=== PATIENT | male | born 1950 | race Caucasian/White ===

== ENCOUNTER → 2017-05-26 | Outpatient (REF) | payer OTHER, MEDICAID ==
[~2017-05-26] MED LIST: /ESCI10TA; ACTO15TA; ALBU17IN INH; AMLO10TA; AMLO10TA PO; AMOX875T2 PO; ASPI325T; CARV25TA PO; CLON0.1D3; COLA100C5 PO; COZA100T; CRES20TA PO; FLAG500T; GABA600T PO; GEMF600T; GEMF600T PO; GLIP2.5T6; GLUC1000; GLUCOPH500 PO; HYDR25TA6; HYDR25TA8; HYDR25TAB PO; LASI20TA PO; LISI-538 PO; LISI40TA; LORATADINE; METF500T13 PO; METO200T3; NEUR300C; NEUR600T; NITROGLYCERINE; PERCOCET PO; POTASSIUM; TRAM50TA2; TRAM50TA2 PO; ZANT150T
[2017-05-26 16:33] LABS: BASO % 0.8 % (0.0-1.0); EOS # 0.1 K/mm3 (0.0-0.50); EOS % 1.1 % (0.0-3.0); LARGE UNSTAINED CELL # 0.1 K/mm3 (0.0-0.4); LYMPH % 15.4 % (24.0-44.0); MEAN CORPUSCULAR HEMOGLOBIN 32.5 pg (27.0-33.0); MEAN CORPUSCULAR HGB CONC 33.2 g/dl (32.0-36.5); MONO # 1.3 K/mm3 (0.0-0.8); NEUTROPHILS # 3.5 K/mm3 (1.8-7.7); NEUTROPHILS % 59.6 % (36.0-66.0); PLATELET COUNT, AUTOMATED 229 k/mm3 (150-450); RED CELL DISTRIBUTION WIDTH 14.4 % (11.5-14.5); WHITE BLOOD COUNT 5.9 K/mm3 (4.0-10.0)
[2017-05-26 17:33] LABS: ALBUMIN 4.1 GM/DL (3.2-5.2); ALBUMIN/GLOBULIN RATIO 1.11 (1.00-1.93); ALKALINE PHOSPHATASE 62 U/L (45-117); ALT/SGPT 23 U/L (12-78); ANION GAP 6 MEQ/L (8-16); AST/SGOT 14 U/L (15-37); BILIRUBIN,TOTAL 0.6 MG/DL (0.2-1.0); BLOOD UREA NITROGEN 18 MG/DL (7-18); CALCIUM LEVEL 8.9 MG/DL (8.8-10.2); CARBON DIOXIDE LEVEL 31 MEQ/L (21-32); CHLORIDE LEVEL 104 MEQ/L (98-107); CHOLESTEROL LEVEL 132 MG/DL (<200); GLOMERULAR FILTRATION RATE > 60.0 (>49); GLUCOSE, FASTING 153 MG/DL (80-110); POTASSIUM SERUM 4.3 MEQ/L (3.5-5.1); SODIUM LEVEL 141 MEQ/L (136-145); TOTAL PROTEIN 7.8 GM/DL (6.4-8.2); TRIGLYCERIDES LEVEL 168 MG/DL (<150)
== END ==
LOC: M SFHCCLAY 10:35
PROVIDERS: ATTEND Family Medicine
DX: I10 Essential (primary) hypertension (principal); E11.9 Type 2 diabetes mellitus without complications; E78.2 Mixed hyperlipidemia
CPT/HCPCS: 80053; 80061; 83036; 85025; G0463

== ENCOUNTER → 2018-01-25 | Outpatient (REF) | payer OTHER, MEDICAID ==
[2018-01-26 12:24] LABS: ALBUMIN 4.1 GM/DL (3.2-5.2); ALBUMIN/GLOBULIN RATIO 1.17 (1.00-1.93); ALKALINE PHOSPHATASE 64 U/L (45-117); ALT/SGPT 19 U/L (12-78); ANION GAP 7 MEQ/L (8-16); AST/SGOT 15 U/L (7-37); BILIRUBIN,TOTAL 0.4 MG/DL (0.2-1.0); BLOOD UREA NITROGEN 21 MG/DL (7-18); CALCIUM LEVEL 9.1 MG/DL (8.8-10.2); CARBON DIOXIDE LEVEL 29 MEQ/L (21-32); CHLORIDE LEVEL 103 MEQ/L (98-107); CHOLESTEROL LEVEL 126 MG/DL (<200); CHOLESTEROL RISK RATIO 3.937 (<5); GLOMERULAR FILTRATION RATE > 60.0 (>49); GLUCOSE, FASTING 112 MG/DL (70-100); HDL CHOLESTEROL 32 MG/DL (>40); LDL CHOLESTEROL 62.8 MG/DL (<100); NON-HDL-C 94 MG/DL; POTASSIUM SERUM 3.8 MEQ/L (3.5-5.1); SODIUM LEVEL 139 MEQ/L (136-145); TOTAL PROTEIN 7.6 GM/DL (6.4-8.2); TRIGLYCERIDES LEVEL 156 MG/DL (<150)
[2018-01-26 13:42] LABS: ESTIMATED AVERAGE GLUCOSE 120 MG/DL (60-110); HEMOGLOBIN A1c 5.8 %
== END ==
LOC: M SFHCCLAY 14:42
DX: E78.2 Mixed hyperlipidemia (principal); E11.40 Type 2 diabetes mellitus with diabetic neuropathy, unspecified
CPT/HCPCS: 80053

== ENCOUNTER → 2018-06-26 | Outpatient (REF) | payer OTHER, MEDICAID ==
[2018-06-26 17:24] LABS: ALBUMIN 4.1 GM/DL (3.2-5.2); ALBUMIN/GLOBULIN RATIO 1.05 (1.00-1.93); ALKALINE PHOSPHATASE 68 U/L (45-117); ALT/SGPT 25 U/L (12-78); ANION GAP 8 MEQ/L (8-16); AST/SGOT 17 U/L (7-37); BILIRUBIN,TOTAL 0.7 MG/DL (0.2-1.0); BLOOD UREA NITROGEN 17 MG/DL (7-18); CALCIUM LEVEL 8.6 MG/DL (8.8-10.2); CARBON DIOXIDE LEVEL 29 MEQ/L (21-32); CHLORIDE LEVEL 102 MEQ/L (98-107); CREATININE FOR GFR 0.92 MG/DL (0.70-1.30); GLOMERULAR FILTRATION RATE > 60.0 (>49); GLUCOSE, FASTING 105 MG/DL (70-100); SODIUM LEVEL 139 MEQ/L (136-145)
[2018-06-26 17:34] LABS: ESTIMATED AVERAGE GLUCOSE 131 MG/DL (60-110); HEMOGLOBIN A1c 6.2 %
[2018-06-26 17:41] LABS: CREATININE, URINE 23.4 MG/DL; MALB URINE SIEMENS 55.1 MG/L; MAU/CREAT RATIO 235.5 MCG/MG (0.0-30.0)
== END ==
LOC: M SFHCCLAY 10:49
DX: E11.40 Type 2 diabetes mellitus with diabetic neuropathy, unspecified (principal)
CPT/HCPCS: 80053

== ENCOUNTER → 2019-02-08 | Outpatient (REF) | payer MEDICARE, MEDICAID ==
[~2019-02-08] MED LIST changes: -/ESCI10TA; -CRES20TA PO; +CRES20TA2 PO; -GABA600T PO; +GABA600T4 PO; -GEMF600T PO; +GEMF600T5 PO; +HYDR-2541 PO; -HYDR25TAB PO; -LASI20TA PO; +LASI20TA3 PO; +LEXA1TAB
[2019-02-08 11:44] LABS: ALBUMIN 3.8 GM/DL (3.2-5.2); ALT/SGPT 23 U/L (12-78); BILIRUBIN,TOTAL 0.4 MG/DL (0.2-1.0); BLOOD UREA NITROGEN 32 MG/DL (7-18); CARBON DIOXIDE LEVEL 28 MEQ/L (21-32); CHLORIDE LEVEL 104 MEQ/L (98-107); CHOLESTEROL LEVEL 131 MG/DL (<200); CHOLESTEROL RISK RATIO 3.742 (<5); CREATININE FOR GFR 0.97 MG/DL (0.70-1.30); GLOMERULAR FILTRATION RATE > 60.0 (>42); GLUCOSE, FASTING 117 MG/DL (70-100); HDL CHOLESTEROL 35 MG/DL (>40); LDL CHOLESTEROL 75 MG/DL (<100); NON-HDL-C 96 MG/DL; POTASSIUM SERUM 4.3 MEQ/L (3.5-5.1); SODIUM LEVEL 139 MEQ/L (136-145); TOTAL PROTEIN 7.7 GM/DL (6.4-8.2); TRIGLYCERIDES LEVEL 105 MG/DL (<150)
[2019-02-08 12:39] LABS: HEMOGLOBIN A1c 6.3 %
== END ==
LOC: M SFHCCLAY 08:13
PROVIDERS: ATTEND Family Medicine
DX: E11.40 Type 2 diabetes mellitus with diabetic neuropathy, unspecified (principal); E78.2 Mixed hyperlipidemia

== ENCOUNTER → 2019-02-08 | Outpatient (CLI) | payer MEDICARE, MEDICAID ==
--- NOTE | 2019-02-08 09:23 | REP ---
CERVICAL SPINE, EIGHT VIEWS: HISTORY: Neck pain. The cervical spine is visualized from C1 to the C5-6 level in the lateral radiographs. There is no acute fracture. The C2-3 through C5-6 intervertebral discs are decreased in height consistent with disc degeneration. Osteophytes are present on C2-6. There is narrowing of the C3-6 neural foramina secondary to uncinate process hypertrophy. There are 3 mm of anterior subluxation of C2 on 3 and C3 on 4 unchanged with flexion and extension. IMPRESSION: Degenerative change as described above.
== END ==
LOC: M CLY 08:30
PROVIDERS: ATTEND Family Medicine
DX: M50.31 Other cervical disc degeneration, high cervical region (principal); M50.321 Other cervical disc degeneration at C4-C5 level; M50.322 Other cervical disc degeneration at C5-C6 level; M25.78 Osteophyte, vertebrae; E11.40 Type 2 diabetes mellitus with diabetic neuropathy, unspecified
CPT/HCPCS: 72050; 80053; 80061; 83036; G0463

== ENCOUNTER → 2019-06-03 | Outpatient (REF) | payer MEDICARE, MEDICAID ==
[~2019-06-03] MED LIST changes: +ASPI81TA85 PO; +BACT800T5 PO; +HYDR25TAB PO; +PREG50CA PO; +VENTAER INH
[2019-06-03 11:44] LABS: BASO % 0.3 % (0.0-1.0); EOS # 0.1 10^3/uL (0.0-0.5); EOS % 1.1 % (0.0-3.0); HEMATOCRIT 35.6 % (42.0-52.0); HEMOGLOBIN 11.8 g/dl (13.5-17.5); LYMPH # 1.1 10^3/uL (1.5-5.0); LYMPH % 17.4 % (24.0-44.0); MEAN CORPUSCULAR HGB CONC 33.1 g/dl (32.0-36.5); MEAN CORPUSCULAR VOLUME 93.4 fl (80.0-96.0); MONO % 30.1 % (0.0-5.0); NEUTROPHILS # 3.1 10^3/uL (1.5-8.5); NEUTROPHILS % 46.7 % (36.0-66.0); PLATELET COUNT, AUTOMATED 208 10^3/uL (150-450); RED BLOOD COUNT 3.81 10^6/uL (4.30-6.10); WHITE BLOOD COUNT 6.6 10^3/uL (4.0-10.0)
[2019-06-03 11:54] LABS: BLOOD UREA NITROGEN 28 MG/DL (7-18); CREATININE FOR GFR 1.06 MG/DL (0.70-1.30); GLUCOSE, FASTING 121 MG/DL (70-100)
[2019-06-03 11:55] LABS: ALBUMIN 3.7 GM/DL (3.2-5.2); ALT/SGPT 14 U/L (12-78); BILIRUBIN,TOTAL 0.3 MG/DL (0.2-1.0); CALCIUM LEVEL 9.7 MG/DL (8.8-10.2); CARBON DIOXIDE LEVEL 30 MEQ/L (21-32); CHLORIDE LEVEL 101 MEQ/L (98-107); GLOMERULAR FILTRATION RATE > 60.0 (>42); POTASSIUM SERUM 4.7 MEQ/L (3.5-5.1); SODIUM LEVEL 139 MEQ/L (136-145); TOTAL PROTEIN 7.8 GM/DL (6.4-8.2)
== END ==
LOC: M SFHCCLAY 08:55
PROVIDERS: ATTEND Family Medicine
DX: E11.40 Type 2 diabetes mellitus with diabetic neuropathy, unspecified (principal)
CPT/HCPCS: 80053; 85025; G0463

== ENCOUNTER 2019-06-12 05:57 | Day surgery (SDC) | payer MEDICARE ==
[~2019-06-12] VITALS: Ht 182.9 cm; Wt 105.9 kg
[~2019-06-12 05:57] MED LIST changes: -BACT800T5 PO
[2019-06-12] MEDS ORDERED: ceFAZolin SOD 2 GM in IV 1 EA IV ONE (06:00)
[2019-06-12] MEDS ORDERED: LIDOCAINE 1% MDV 20ML VIAL SQ PRN (06:00)
[2019-06-12] MEDS ORDERED: LR 1,000 ML IV ONE (06:00)
[2019-06-12] MEDS ORDERED: LIDOCAINE 1% MDV 20ML VIAL As Ordered ONE (06:54)
[2019-06-12] MEDS ORDERED: BUPIVACAINE HCL 0.5% 30 ML VIAL As Ordered ONE (06:54)
[2019-06-12] MEDS ORDERED: PROPOFOL 200 MG/20 ML VIAL As Ordered ONE ×2 (06:59→07:54)
[2019-06-12] MEDS ORDERED: LIDOCAINE 2% INJ 100 MG/5 ML SDV (FOR ANES.) As Ordered ONE (06:59)
[2019-06-12] MEDS ORDERED: ONDANSETRON 4MG/2ML VIAL (J2405) As Ordered ONE (06:59)
[2019-06-12] MEDS ORDERED: dexameTHASONE 4 MG/ML 1ML VIAL (J1100) As Ordered ONE (07:00)
[2019-06-12] MEDS ORDERED: KETOROLAC 60 MG/2 ML VIAL (J1885) As Ordered ONE (07:00)
[2019-06-12] MEDS ORDERED: fentaNYL 100 MCG/2 ML INJECTION (J3010) As Ordered ONE (07:04)
[2019-06-12] MEDS ORDERED: MIDAZOLAM INJ 2 MG/2 ML VIAL (J2250) As Ordered ONE (07:04)
[2019-06-12] MEDS ORDERED: BACT800T5 PO (08:14)
[2019-06-12 08:35] VITALS: BP 125/67
[2019-06-12] MEDS ORDERED: LR 1,000 ML IV SCH (09:00)
[2019-06-12] MEDS ORDERED: fentaNYL 100 MCG/2 ML INJECTION (J3010) IV PRN (09:00)
[2019-06-12] MEDS ORDERED: ONDANSETRON 4MG/2ML VIAL (J2405) IV PRN (09:00)
[2019-06-12] MEDS ORDERED: oxyCODONE 5MG TAB PO PRN (09:00)
[2019-06-12] MEDS ORDERED: METOCLOPRAMIDE INJ 10MG/2ML VIAL (J2765) IV PRN (09:00)
--- NOTE | 2019-06-12 09:55 | RO ---
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 PROCEDURE: Left 5th metatarsal head excision. SURGEON: Beni Figueroa DPM INSIDE TECHNICAL SALES REPRESENTATIVE: None ANESTHESIA: Monitored anesthesia care with preoperative injection of 10 mL of 1:1 mixture of 1% lidocaine plain and 0.5% Marcaine plain. ESTIMATED BLOOD LOSS: Minimal. MATERIALS: 3-0 nylon. INJECTABLES: None. SPECIMENS: Left 5th metatarsal head. COMPLICATIONS: None. Tolu Yusuf is a 68-year-old male who presents to [facility] with infection to his left foot. 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 He presents today for surgical excision of metatarsal head. The patient's side and site were identified and marked in the preoperative holding area. Consent was reviewed and obtained. All risks, complications, and alternatives to the procedure were explained to the patient in detail. All questions were answered. DESCRIPTION OF PROCEDURE: The patient was brought to the operating room and placed on the operating table in supine position. Monitored anesthesia care was delivered by the anesthesia team. A preoperative injection of 10 mL of 1:1 mixture of 1% lidocaine plain and 0.5% Marcaine plain were injected to the left foot. The left foot was prepped and draped in normal sterile fashion. A tourniquet was applied to the ankle, inflated at 250 mmHg. A dorsal incision was drawn over the 5th metatarsal head and carried through with a #15 blade. Dissection was carried down until the metatarsal was identified. Attached soft tissue and scar tissue were released using tenotomy scissors and #15 blade, and the metatarsal head was excised using a sagittal saw. This was sent for pathology. Remaining nonfriable tissue was debrided and cleaned in the plantar ulceration that was then irrigated with normal saline, and the wound was closed using 3-0 nylon. Sterile dressings were applied. The tourniquet was deflated. The patient was brought to postanesthesia care unit (PACU) with vital signs stable and neurovascular status intact. He will be partial weightbearing to his left foot. He will followup in office in 2 days.
== END 2019-06-12 09:07 | disposition home or self-care (01) ==
LOC: M SDC 05:57
PROVIDERS: ATTEND Podiatrist Foot & Ankle Surgery
DX: M86.172 Other acute osteomyelitis, left ankle and foot (principal); M79.672 Pain in left foot; E78.2 Mixed hyperlipidemia; I10 Essential (primary) hypertension; E11.40 Type 2 diabetes mellitus with diabetic neuropathy, unspecified; I25.10 Atherosclerotic heart disease of native coronary artery without angina pectoris; Z95.1 Presence of aortocoronary bypass graft; R26.9 Unspecified abnormalities of gait and mobility; Z79.84 Long term (current) use of oral hypoglycemic drugs; Z79.82 Long term (current) use of aspirin; Z79.899 Other long term (current) drug therapy; Z87.891 Personal history of nicotine dependence; I25.2 Old myocardial infarction; M54.5 Low back pain; M54.2 Cervicalgia; Z79.51 Long term (current) use of inhaled steroids
CPT/HCPCS: 28113; 88304; J0690; J1100; J1885; J2250; J2405; J3010

== ENCOUNTER → 2019-08-13 | Outpatient (REF) | payer MEDICARE, MEDICAID ==
[~2019-08-13] MED LIST changes: +BACT800T5 PO
[2019-08-13 16:54] LABS: ALBUMIN 4.2 GM/DL (3.2-5.2); ALT/SGPT 16 U/L (12-78); BILIRUBIN,TOTAL 0.6 MG/DL (0.2-1.0); BLOOD UREA NITROGEN 31 MG/DL (7-18); CALCIUM LEVEL 9.8 MG/DL (8.8-10.2); CARBON DIOXIDE LEVEL 29 MEQ/L (21-32); CHLORIDE LEVEL 103 MEQ/L (98-107); CREATININE FOR GFR 1.26 MG/DL (0.70-1.30); GLOMERULAR FILTRATION RATE > 60.0 (>42); GLUCOSE, FASTING 104 MG/DL (70-100); POTASSIUM SERUM 4.3 MEQ/L (3.5-5.1); SODIUM LEVEL 139 MEQ/L (136-145); TOTAL PROTEIN 9.1 GM/DL (6.4-8.2)
[2019-08-13 18:29] LABS: HEMOGLOBIN A1c 6.5 %
== END ==
LOC: M SFHCCLAY 09:56
PROVIDERS: ATTEND Family Medicine
DX: E11.40 Type 2 diabetes mellitus with diabetic neuropathy, unspecified (principal); Z23 Encounter for immunization
CPT/HCPCS: 80053; 83036; 90682; 90732; G0008; G0009; G0463

== ENCOUNTER → 2020-02-26 | Outpatient (CLI) | payer MEDICARE ==
[~2020-02-26] MED LIST changes: -ASPI81TA85 PO; +ASPI81TA86 PO; +HYDR-3490 PO; -HYDR25TAB PO; -LISI-538 PO; +LISI20TA33 PO
== END ==
LOC: M PT 13:48
PROVIDERS: ATTEND Family Medicine
DX: M54.5 Low back pain (principal); Z89.442 Acquired absence of left ankle; E11.40 Type 2 diabetes mellitus with diabetic neuropathy, unspecified; R26.9 Unspecified abnormalities of gait and mobility

== ENCOUNTER → 2020-03-09 | Outpatient (REF) | payer MEDICARE, MEDICAID ==
[~2020-03-09] MED LIST changes: +ASPI81TA85 PO; -ASPI81TA86 PO; -HYDR-3490 PO; +HYDR25TAB PO; +LISI-538 PO; -LISI20TA33 PO
[2020-03-09 16:32] LABS: ALBUMIN 3.7 GM/DL (3.2-5.2); ALT/SGPT 17 U/L (12-78); BILIRUBIN,TOTAL 0.5 MG/DL (0.2-1.0); BLOOD UREA NITROGEN 36 MG/DL (7-18); CALCIUM LEVEL 9.3 MG/DL (8.8-10.2); CARBON DIOXIDE LEVEL 27 MEQ/L (21-32); CHLORIDE LEVEL 103 MEQ/L (98-107); CHOLESTEROL LEVEL 110 MG/DL (<200); CHOLESTEROL RISK RATIO 3.793 (<5); CREATININE FOR GFR 1.25 MG/DL (0.70-1.30); GLOMERULAR FILTRATION RATE > 60.0 (>42); GLUCOSE, FASTING 123 MG/DL (70-100); HDL CHOLESTEROL 29 MG/DL (>40); LDL CHOLESTEROL 58 MG/DL (<100); NON-HDL-C 81 MG/DL; POTASSIUM SERUM 4.2 MEQ/L (3.5-5.1); SODIUM LEVEL 138 MEQ/L (136-145); TRIGLYCERIDES LEVEL 116 MG/DL (<150)
[2020-03-09 16:44] LABS: HEMOGLOBIN A1c 6.9 %
[2020-03-09 16:45] LABS: BASO % 0.2 % (0.0-1.0); EOS # 0.1 10^3/uL (0.0-0.5); EOS % 0.7 % (0.0-3.0); HEMATOCRIT 40.2 % (42.0-52.0); HEMOGLOBIN 13.1 g/dl (13.5-17.5); LYMPH # 1.6 10^3/uL (1.5-5.0); LYMPH % 16.8 % (24.0-44.0); MEAN CORPUSCULAR HEMOGLOBIN 30.8 pg (27.0-33.0); MEAN CORPUSCULAR HGB CONC 32.6 g/dl (32.0-36.5); MEAN CORPUSCULAR VOLUME 94.4 fl (80.0-96.0); MONO % 31.3 % (0.0-5.0); NEUTROPHILS # 4.6 10^3/uL (1.5-8.5); NEUTROPHILS % 47.9 % (36.0-66.0); PLATELET COUNT, AUTOMATED 296 10^3/uL (150-450); RED BLOOD COUNT 4.26 10^6/uL (4.30-6.10); WHITE BLOOD COUNT 9.5 10^3/uL (4.0-10.0)
[2020-03-09 19:32] LABS: ERYTHROCYTE SEDIMENTATION RATE 54 mm/hr (0-20)
== END ==
LOC: M SFHCCLAY 09:58
PROVIDERS: ATTEND Family Medicine
DX: E11.40 Type 2 diabetes mellitus with diabetic neuropathy, unspecified (principal); I10 Essential (primary) hypertension; E78.2 Mixed hyperlipidemia; R51 Headache; M54.2 Cervicalgia
CPT/HCPCS: 80053; 80061; 83036; 85025; 85652; 86140; G0463

== ENCOUNTER → 2020-10-02 | Outpatient (REF) | payer MEDICARE, MEDICAID ==
[~2020-10-02] MED LIST changes: -ASPI81TA85 PO; +ASPI81TA86 PO
[2020-10-02 16:56] LABS: HEMOGLOBIN A1c 5.9 %
[2020-10-02 16:57] LABS: ALBUMIN 4.3 GM/DL (3.2-5.2); ALT/SGPT 21 U/L (12-78); BILIRUBIN,TOTAL 0.5 MG/DL (0.2-1.0); BLOOD UREA NITROGEN 26 MG/DL (7-18); CALCIUM LEVEL 10.1 MG/DL (8.8-10.2); CARBON DIOXIDE LEVEL 33 MEQ/L (21-32); CHLORIDE LEVEL 104 MEQ/L (98-107); CREATININE FOR GFR 0.92 MG/DL (0.70-1.30); GLOMERULAR FILTRATION RATE > 60.0 (>42); GLUCOSE, FASTING 101 MG/DL (70-100); POTASSIUM SERUM 4.3 MEQ/L (3.5-5.1); SODIUM LEVEL 140 MEQ/L (136-145); TOTAL PROTEIN 8.4 GM/DL (6.4-8.2)
== END ==
LOC: M SFHCCLAY 13:22
PROVIDERS: ATTEND Family Medicine
DX: E11.40 Type 2 diabetes mellitus with diabetic neuropathy, unspecified (principal); Z23 Encounter for immunization
CPT/HCPCS: 80053; 83036; 90682; G0008; G0463

== ENCOUNTER → 2020-11-26 | Outpatient (REF) | payer MEDICARE, MEDICAID ==
[~2020-11-26] MED LIST changes: +HYDR-3490 PO; -HYDR25TAB PO; -LISI-538 PO; +LISI20TA33 PO
[2020-11-26 16:22] LABS: BASO % 0.2 % (0.0-1.0); EOS % 0.3 % (0.0-3.0); HEMATOCRIT 32.7 % (42.0-52.0); HEMOGLOBIN 10.5 g/dl (13.5-17.5); LYMPH # 1.1 10^3/uL (1.5-5.0); LYMPH % 12.7 % (24.0-44.0); MEAN CORPUSCULAR HEMOGLOBIN 31.2 pg (27.0-33.0); MEAN CORPUSCULAR HGB CONC 32.1 g/dl (32.0-36.5); MONO % 30.9 % (2.0-8.0); NEUTROPHILS # 4.6 10^3/uL (1.5-8.5); PLATELET COUNT, AUTOMATED 239 10^3/uL (150-450); RED BLOOD COUNT 3.37 10^6/uL (4.30-6.10)
[2020-11-26 16:35] LABS: ALT/SGPT 23 U/L (12-78); BILIRUBIN,TOTAL 0.2 MG/DL (0.2-1.0); BLOOD UREA NITROGEN 26 MG/DL (7-18); CALCIUM LEVEL 9.3 MG/DL (8.8-10.2); CARBON DIOXIDE LEVEL 28 MEQ/L (21-32); CHLORIDE LEVEL 106 MEQ/L (98-107); CREATININE FOR GFR 0.81 MG/DL (0.70-1.30); GLOMERULAR FILTRATION RATE > 60.0 (>42); GLUCOSE, FASTING 135 MG/DL (70-100); POTASSIUM SERUM 4.3 MEQ/L (3.5-5.1); SODIUM LEVEL 141 MEQ/L (136-145); TOTAL PROTEIN 6.9 GM/DL (6.4-8.2)
[2020-11-26 17:13] LABS: WHITE BLOOD COUNT 8.8 10^3/uL (4.0-10.0)
[2020-11-26 17:14] LABS: MONO # 2.7 10^3/uL (0.0-0.8)
== END ==
LOC: M SFHCCLAY 10:22
PROVIDERS: ATTEND Family Medicine
DX: R76.8 Other specified abnormal immunological findings in serum (principal); D72.829 Elevated white blood cell count, unspecified
CPT/HCPCS: 80053; 85025; G0463

== ENCOUNTER → 2020-12-15 | Outpatient (REF) | payer MEDICARE, MEDICAID ==
[2020-12-16 23:06] LABS: HBV HBV DNA not detected IU/mL (.); HEPATITIS B CORE ANTIBODY IGG Negative (Negative); HEPATITIS BE ANTIBODY Negative (Negative); HEPATITIS BE ANTIGEN Negative (Negative)
== END ==
LOC: M SFHCPLAZ 11:49
PROVIDERS: ATTEND Internal Medicine Infectious Disease
DX: R76.8 Other specified abnormal immunological findings in serum (principal)
CPT/HCPCS: 36415; 86704; 86706; 86707; 87350; 87517; G0463

== ENCOUNTER → 2021-07-16 | Outpatient (CLI) | payer MEDICARE, MEDICAID ==
--- NOTE | 2021-07-16 14:04 | REP ---
INDICATION: LT FOOT ULCER COMPARISON: None. TECHNIQUE: Real-time sonographic evaluation of the left lower extremity arteries with Doppler FINDINGS: All numeric values represent peak systolic velocities in cm/SEC The ankle brachial index is 0.9 RV SERVICE TECHNICIAN: 114.2 triphasic Profunda: 78.9 biphasic SFA proximal: 68.4 biphasic SFA mid: 85.9 biphasic SFA distal: 72.6 triphasic Popliteal: 79.3 triphasic Tibioperoneal trunk: 72.0 triphasic SCALLOP BINDER proximal: 123.5 biphasic SCALLOP BINDER distal: 88.7 biphasic Peroneal proximally: 66.0 biphasic Peroneal distally: 62.0 biphasic ALLISON proximal: 31.7 biphasic ALLISON distal: 18.7 biphasic A mild to moderate amount of plaque was identified. IMPRESSION: As above <Electronically signed by Jimmie Guzman > 07/16/21 1400
== END ==
LOC: M RAD 10:53
PROVIDERS: ATTEND Physician Assistant
DX: E11.621 Type 2 diabetes mellitus with foot ulcer (principal); L97.428 Non-pressure chronic ulcer of left heel and midfoot with other specified severity

== ENCOUNTER → 2021-09-30 | Outpatient (REF) | payer MEDICARE, MEDICAID ==
[2021-09-30 12:27] LABS: HEMOGLOBIN A1c 5.7 %
== END ==
LOC: M LAB REF 11:36
PROVIDERS: ATTEND Surgery
DX: E11.621 Type 2 diabetes mellitus with foot ulcer (principal); L97.428 Non-pressure chronic ulcer of left heel and midfoot with other specified severity

== ENCOUNTER → 2022-03-09 | Outpatient (REF) | payer MEDICARE, MEDICAID ==
[~2022-03-09] MED LIST changes: +ASPI-161 PO; +DOXY-259 PO; +DOXY100T; +NALO12.5 PO
== END ==
LOC: M SFHCWOUN 15:35
PROVIDERS: ATTEND Surgery
DX: L97.512 Non-pressure chronic ulcer of other part of right foot with fat layer exposed (principal)

== ENCOUNTER → 2022-03-17 | Outpatient (CLI) | payer MEDICARE, MEDICAID ==
[~2022-03-17] MED LIST changes: -ASPI-161 PO; -DOXY-259 PO; -DOXY100T; -NALO12.5 PO
== END ==
LOC: M RAD 09:55
PROVIDERS: ATTEND Surgery
DX: I70.233 Atherosclerosis of native arteries of right leg with ulceration of ankle (principal); I77.1 Stricture of artery; L97.312 Non-pressure chronic ulcer of right ankle with fat layer exposed

== ENCOUNTER 2022-03-23 15:19 | Inpatient (IN) | payer MEDICARE, MEDICAID ==
[~2022-03-23] VITALS: Ht 182.9 cm; Wt 100.0 kg
[2022-03-23] MEDS ORDERED: DOXY100T (15:34)
[2022-03-23 17:12] LABS: BLOOD UREA NITROGEN 16 MG/DL (7-18); CALCIUM LEVEL 9.1 MG/DL (8.8-10.2); CARBON DIOXIDE LEVEL 27 MEQ/L (21-32); CHLORIDE LEVEL 102 MEQ/L (98-107); CREATININE FOR GFR 0.72 MG/DL (0.70-1.30); GLOMERULAR FILTRATION RATE > 60.0 (>42); GLUCOSE, FASTING 105 MG/DL (70-100); POTASSIUM SERUM 3.8 MEQ/L (3.5-5.1); SODIUM LEVEL 134 MEQ/L (136-145)
[2022-03-23 17:39] LABS: INR 1.23; PROTHROMBIN TIME 15.9 SECONDS (12.7-14.5)
[2022-03-23 18:27] LABS: HEMATOCRIT 26.5 % (42.0-52.0); MEAN CORPUSCULAR HEMOGLOBIN 27.1 pg (27.0-33.0); MEAN CORPUSCULAR HGB CONC 30.2 g/dl (32.0-36.5); MEAN CORPUSCULAR VOLUME 89.8 fl (80.0-96.0); PLATELET COUNT, AUTOMATED 280 10^3/uL (150-450); RED BLOOD COUNT 2.95 10^6/uL (4.30-6.10); WHITE BLOOD COUNT 11.4 10^3/uL (4.0-10.0)
[2022-03-23 18:52] LABS: ERYTHROCYTE SEDIMENTATION RATE 126 mm/hr (0-20)
[2022-03-23 19:14] LABS: LYMPHOCYTES 5 % (16-44); MONOCYTES 12 % (0-5); NEUTROPHILS 83 % (28-66)
[2022-03-23 19:16] LABS: HYPOCHROMASIA 1+; POIKILOCYTOSIS 1+
[2022-03-23 19:17] LABS: PLATELET ESTIMATE NORMAL (NORMAL)
[2022-03-23] MEDS ORDERED: VANCOMYCIN HCL 2,000 MG in IV FLUID PLACE HOLDER 1 EA IV ONE (19:25)
[2022-03-23] MEDS ORDERED: VANCOMYCIN HCL 1,000 MG, VIAL MATE ADAPTER 1 EACH in NS 250 ML IV ONE ×2 (20:00→21:00)
[2022-03-23 20:10] LABS: RSV AMPLIFICATION NEGATIVE (NEGATIVE)
[2022-03-23] MEDS ORDERED: GLUCOSE 4GM CHEW TABLET PO PRN (20:15)
[2022-03-23] MEDS ORDERED: GLUCAGON INJ 1MG VIAL SC PRN (20:15)
[2022-03-23] MEDS ORDERED: ACETAMINOPHEN TAB 650MG DOSE (2X325MG) PO PRN (20:15)
[2022-03-23] MEDS ORDERED: PERCOCET 5MG/325MG TAB PO PRN (20:15)
[2022-03-23] MEDS ORDERED: DEXTROSE 50% 50 ML SYRINGE IV PRN (20:15)
[2022-03-23 22:21] LABS: PERCENT SATURATION 12.9 % (19.7-50.0)
[2022-03-23 22:22] LABS: HEMOGLOBIN A1c 5.4 %
[2022-03-23 22:55] LABS: FOLATE 6.5 NG/ML (>5.4)
[2022-03-24] VITALS (9 sets, daily range): BP systolic 119–135; BP diastolic 60–82
[2022-03-24] MEDS ORDERED: DOXY-259 PO (00:10)
[2022-03-24] MEDS ORDERED: HOME MED LIST COMPLETE! XX SCH (00:10)
[2022-03-24] MEDS ORDERED: NALO12.5 PO (00:10)
[2022-03-24] MEDS ORDERED: ASPI-161 PO (00:10)
[2022-03-24] MEDS: VANCOMYCIN HCL 750 MG, VIAL MATE ADAPTER 1 EACH in D5W 250 ML IV SCH ×2 (00:49→08:17)
[2022-03-24] MEDS: VANCOMYCIN HCL 500 MG in D5W MINI-BAG PLUS 100 ML IV SCH ×2 (00:49→09:31)
[2022-03-24] MEDS: PIPERACILLIN/TAZOBACTAM SOD 3.375 GM in D5W MINI-BAG PLUS 50 ML IV SCH ×6 (00:49→23:11)
[2022-03-24] MEDS: INSULIN LISPRO (NovoLOG) PER UNIT SC SCH ×5 (01:47→21:00)
[2022-03-24 06:28] LABS: EOS % 0.1 % (0.0-3.0); HEMATOCRIT 22.4 % (42.0-52.0); LYMPH # 0.6 10^3/uL (1.5-5.0); LYMPH % 8.8 % (24.0-44.0); MEAN CORPUSCULAR HEMOGLOBIN 27.9 pg (27.0-33.0); MEAN CORPUSCULAR HGB CONC 30.8 g/dl (32.0-36.5); MEAN CORPUSCULAR VOLUME 90.7 fl (80.0-96.0); MONO % 27.8 % (2.0-8.0); NEUTROPHILS # 4.4 10^3/uL (1.5-8.5); NEUTROPHILS % 61.9 % (36.0-66.0); PLATELET COUNT, AUTOMATED 226 10^3/uL (150-450); RED BLOOD COUNT 2.47 10^6/uL (4.30-6.10); WHITE BLOOD COUNT 7.2 10^3/uL (4.0-10.0)
[2022-03-24 06:37] LABS: INR 1.42; PROTHROMBIN TIME 17.8 SECONDS (12.7-14.5)
[2022-03-24 06:38] LABS: PARTIAL THROMBOPLASTIN TIME 40.2 SECONDS (25.9-37.0)
[2022-03-24 06:57] LABS: ALBUMIN 1.9 GM/DL (3.2-5.2); ALT/SGPT 10 U/L (12-78); BILIRUBIN,TOTAL 0.6 MG/DL (0.2-1.0); BLOOD UREA NITROGEN 16 MG/DL (7-18); CALCIUM LEVEL 9.2 MG/DL (8.8-10.2); CARBON DIOXIDE LEVEL 28 MEQ/L (21-32); CHLORIDE LEVEL 103 MEQ/L (98-107); CREATININE FOR GFR 0.63 MG/DL (0.70-1.30); GLOMERULAR FILTRATION RATE > 60.0 (>42); GLUCOSE, FASTING 94 MG/DL (70-100); MAGNESIUM LEVEL 1.8 MG/DL (1.8-2.4); POTASSIUM SERUM 3.3 MEQ/L (3.5-5.1); SODIUM LEVEL 138 MEQ/L (136-145); TOTAL PROTEIN 7.3 GM/DL (6.4-8.2)
[2022-03-24 07:24] LABS: HEMOGLOBIN 6.9 g/dl (13.5-17.5)
[2022-03-24] MEDS ORDERED: POTASSIUM CHLORIDE 10MEQ SR TABLET PO ONE (07:30)
[2022-03-24] MEDS: PREGABALIN 50 MG CAP (LYRICA) PO SCH ×3 (08:10→21:10)
[2022-03-24] MEDS: LACTOBACILLUS ACIDOPHILUS CAP (BACID) PO SCH (08:10)
[2022-03-24] MEDS: PANTOPRAZOLE 40MG TAB (PROTONIX) PO SCH (08:10)
[2022-03-24] MEDS: CARVedilol 12.5 MG TAB PO SCH ×2 (08:11→21:11)
[2022-03-24] MEDS: ASPIRIN 81MG ENTERIC TABLET PO SCH (08:11)
[2022-03-24] MEDS: D5W/0.9% SODIUM CHLORIDE 1,000 ML IV SCH (08:14)
[2022-03-24] MEDS: ENOXAPARIN 40MG/0.4ML SYRINGE (J1650 PER 10MG) SC SCH (11:49)
[2022-03-24] MEDS ORDERED: HEPARIN SOD (PORCINE) 5000UNITS/ML 1ML VIAL/SYRINGE SC SCH (14:00)
[2022-03-24] MEDS ORDERED: LIDOCAINE 1% MDV 20ML VIAL As Ordered ONE (16:14)
[2022-03-24] MEDS ORDERED: BUPIVACAINE HCL 0.5% 30ML VIAL As Ordered ONE (16:14)
[2022-03-24] MEDS ORDERED: LIDOCAINE 2% INJ 100 MG/5 ML SYRINGE As Ordered ONE (16:18)
[2022-03-24] MEDS ORDERED: propofoL 500 MG/50 ML VIAL As Ordered ONE (16:18)
[2022-03-24] MEDS ORDERED: fentaNYL 100 MCG/2 ML INJECTION As Ordered ONE (16:19)
[2022-03-24] MEDS ORDERED: MIDAZOLAM INJ 2MG/2ML VIAL (J2250 PER 1MG) As Ordered ONE (16:19)
[2022-03-24] MEDS ORDERED: ONDANSETRON 4MG 2ML VIAL IV PRN (17:25)
[2022-03-24] MEDS ORDERED: fentaNYL 100 MCG/2 ML INJECTION IV PRN (17:25)
[2022-03-24] MEDS ORDERED: oxyCODONE 5MG TAB PO PRN (17:25)
[2022-03-24] MEDS ORDERED: LR 1,000 ML IV SCH (17:25)
[2022-03-24] MEDS: ROSUVASTATIN 10 MG TAB (CRESTOR) PO SCH (21:11)
[2022-03-25] VITALS (14 sets, daily range): BP systolic 101–159; BP diastolic 61–88
[2022-03-25] MEDS: D5W/0.9% SODIUM CHLORIDE 1,000 ML IV SCH ×2 (00:40→18:29)
[2022-03-25] MEDS: PIPERACILLIN/TAZOBACTAM SOD 3.375 GM in D5W MINI-BAG PLUS 50 ML IV SCH ×3 (04:03→20:41)
[2022-03-25] MEDS: SODIUM CHLORIDE 0.9% INJ 10 ML SYR IV SCH ×2 (06:00→18:00)
[2022-03-25 07:19] LABS: EOS % 0.2 % (0.0-3.0); HEMATOCRIT 21.4 % (42.0-52.0); LYMPH # 0.5 10^3/uL (1.5-5.0); LYMPH % 7.5 % (24.0-44.0); MEAN CORPUSCULAR HEMOGLOBIN 27.4 pg (27.0-33.0); MEAN CORPUSCULAR HGB CONC 30.4 g/dl (32.0-36.5); MEAN CORPUSCULAR VOLUME 90.3 fl (80.0-96.0); MONO % 25.9 % (2.0-8.0); NEUTROPHILS # 4.3 10^3/uL (1.5-8.5); NEUTROPHILS % 64.9 % (36.0-66.0); PLATELET COUNT, AUTOMATED 218 10^3/uL (150-450); RED BLOOD COUNT 2.37 10^6/uL (4.30-6.10); WHITE BLOOD COUNT 6.6 10^3/uL (4.0-10.0)
[2022-03-25] MEDS: INSULIN LISPRO (NovoLOG) PER UNIT SC SCH ×5 (07:30→20:41)
[2022-03-25 07:47] LABS: BLOOD UREA NITROGEN 15 MG/DL (7-18); CALCIUM LEVEL 8.6 MG/DL (8.8-10.2); CARBON DIOXIDE LEVEL 29 MEQ/L (21-32); CHLORIDE LEVEL 105 MEQ/L (98-107); CREATININE FOR GFR 0.63 MG/DL (0.70-1.30); GLOMERULAR FILTRATION RATE > 60.0 (>42); GLUCOSE, FASTING 111 MG/DL (70-100); POTASSIUM SERUM 3.8 MEQ/L (3.5-5.1); SODIUM LEVEL 137 MEQ/L (136-145)
[2022-03-25 08:12] LABS: HEMOGLOBIN 6.5 g/dl (13.5-17.5)
[2022-03-25 08:13] LABS: MONO # 1.7 10^3/uL (0.0-0.8)
[2022-03-25] MEDS ORDERED: LIDOCAINE 1% MDV 20ML VIAL As Ordered ONE (08:26)
[2022-03-25] MEDS: CARVedilol 12.5 MG TAB PO SCH ×2 (09:00→20:41)
[2022-03-25] MEDS: PREGABALIN 50 MG CAP (LYRICA) PO SCH ×3 (09:00→20:41)
[2022-03-25 09:22] LABS: MAGNESIUM LEVEL 1.9 MG/DL (1.8-2.4)
[2022-03-25] MEDS ORDERED: BISACODYL 10 MG SUPP PR ONE (09:30)
[2022-03-25] MEDS: LACTOBACILLUS ACIDOPHILUS CAP (BACID) PO SCH (09:58)
[2022-03-25] MEDS: ASPIRIN 81MG ENTERIC TABLET PO SCH (09:58)
[2022-03-25] MEDS: ENOXAPARIN 40MG/0.4ML SYRINGE (J1650 PER 10MG) SC SCH (09:58)
[2022-03-25] MEDS: PANTOPRAZOLE 40MG TAB (PROTONIX) PO SCH (09:58)
[2022-03-25] MEDS: VANCOMYCIN HCL 750 MG, VIAL MATE ADAPTER 1 EACH in D5W 250 ML IV SCH (16:26)
[2022-03-25 16:40] LABS: HEMATOCRIT 26.7 % (42.0-52.0); HEMOGLOBIN 8.3 g/dl (13.5-17.5)
[2022-03-25] MEDS: VANCOMYCIN HCL 500 MG in D5W MINI-BAG PLUS 100 ML IV SCH (17:37)
[2022-03-25] MEDS: ROSUVASTATIN 10 MG TAB (CRESTOR) PO SCH (20:41)
[2022-03-26] MEDS: VANCOMYCIN HCL 750 MG, VIAL MATE ADAPTER 1 EACH in D5W 250 ML IV SCH ×2 (00:34→12:56)
[2022-03-26] MEDS: VANCOMYCIN HCL 500 MG in D5W MINI-BAG PLUS 100 ML IV SCH ×2 (01:46→14:40)
[2022-03-26] MEDS: PIPERACILLIN/TAZOBACTAM SOD 3.375 GM in D5W MINI-BAG PLUS 50 ML IV SCH ×4 (04:01→20:57)
[2022-03-26 05:21] VITALS: BP 152/82
[2022-03-26] MEDS: SODIUM CHLORIDE 0.9% INJ 10 ML SYR IV SCH ×2 (05:25→18:16)
[2022-03-26 06:18] LABS: EOS % 0.2 % (0.0-3.0); HEMATOCRIT 27.4 % (42.0-52.0); HEMOGLOBIN 8.6 g/dl (13.5-17.5); LYMPH # 0.8 10^3/uL (1.5-5.0); LYMPH % 12.9 % (24.0-44.0); MEAN CORPUSCULAR HEMOGLOBIN 27.4 pg (27.0-33.0); MEAN CORPUSCULAR HGB CONC 31.4 g/dl (32.0-36.5); MEAN CORPUSCULAR VOLUME 87.3 fl (80.0-96.0); MONO % 27.1 % (2.0-8.0); NEUTROPHILS # 3.7 10^3/uL (1.5-8.5); NEUTROPHILS % 58.1 % (36.0-66.0); PLATELET COUNT, AUTOMATED 235 10^3/uL (150-450); RED BLOOD COUNT 3.14 10^6/uL (4.30-6.10); WHITE BLOOD COUNT 6.4 10^3/uL (4.0-10.0)
[2022-03-26 06:38] LABS: BLOOD UREA NITROGEN 16 MG/DL (7-18); C REACTIVE PROTEIN QUANTITATIV 8.08 MG/DL (0.00-0.30); CALCIUM LEVEL 8.7 MG/DL (8.8-10.2); CARBON DIOXIDE LEVEL 26 MEQ/L (21-32); CHLORIDE LEVEL 107 MEQ/L (98-107); CREATININE FOR GFR 0.72 MG/DL (0.70-1.30); GLOMERULAR FILTRATION RATE > 60.0 (>42); GLUCOSE, FASTING 103 MG/DL (70-100); POTASSIUM SERUM 3.5 MEQ/L (3.5-5.1); SODIUM LEVEL 139 MEQ/L (136-145)
[2022-03-26 06:56] LABS: MONO # 1.7 10^3/uL (0.0-0.8)
[2022-03-26 07:30] VITALS: BP 144/83
[2022-03-26] MEDS: INSULIN LISPRO (NovoLOG) PER UNIT SC SCH ×4 (07:39→20:50)
[2022-03-26] MEDS: ENOXAPARIN 40MG/0.4ML SYRINGE (J1650 PER 10MG) SC SCH (09:27)
[2022-03-26] MEDS: PREGABALIN 50 MG CAP (LYRICA) PO SCH ×3 (09:32→20:57)
[2022-03-26] MEDS: LACTOBACILLUS ACIDOPHILUS CAP (BACID) PO SCH (09:32)
[2022-03-26] MEDS: CARVedilol 12.5 MG TAB PO SCH ×2 (09:32→20:56)
[2022-03-26] MEDS: PANTOPRAZOLE 40MG TAB (PROTONIX) PO SCH (09:32)
[2022-03-26] MEDS: ASPIRIN 81MG ENTERIC TABLET PO SCH (09:33)
[2022-03-26] MEDS: D5W/0.9% SODIUM CHLORIDE 1,000 ML IV SCH (10:33)
[2022-03-26] MEDS ORDERED: diphenhydrAMINE 25MG CAP PO PRN (14:00)
[2022-03-26 14:47] VITALS: BP 137/77
[2022-03-26] MEDS: MOM 30ML SUSPENSION UDC PO PRN (18:30)
[2022-03-26] MEDS: ROSUVASTATIN 10 MG TAB (CRESTOR) PO SCH (20:56)
[2022-03-26 22:00] VITALS: BP 155/87
[2022-03-27] MEDS: VANCOMYCIN HCL 750 MG, VIAL MATE ADAPTER 1 EACH in D5W 250 ML IV SCH (00:13)
[2022-03-27] MEDS: VANCOMYCIN HCL 500 MG in D5W MINI-BAG PLUS 100 ML IV SCH (01:18)
[2022-03-27] MEDS: D5W/0.9% SODIUM CHLORIDE 1,000 ML IV SCH (02:10)
[2022-03-27] MEDS: PIPERACILLIN/TAZOBACTAM SOD 3.375 GM in D5W MINI-BAG PLUS 50 ML IV SCH ×2 (03:11→08:55)
[2022-03-27] MEDS: SODIUM CHLORIDE 0.9% INJ 10 ML SYR IV SCH ×2 (05:17→18:06)
[2022-03-27 05:20] VITALS: BP 152/85
[2022-03-27] MEDS: MOM 30ML SUSPENSION UDC PO PRN (06:18)
[2022-03-27 07:09] LABS: BASO % 0.2 % (0.0-1.0); EOS % 0.3 % (0.0-3.0); HEMATOCRIT 26.9 % (42.0-52.0); HEMOGLOBIN 8.1 g/dl (13.5-17.5); LYMPH # 0.7 10^3/uL (1.5-5.0); LYMPH % 11.9 % (24.0-44.0); MEAN CORPUSCULAR HEMOGLOBIN 27.3 pg (27.0-33.0); MEAN CORPUSCULAR HGB CONC 30.1 g/dl (32.0-36.5); MEAN CORPUSCULAR VOLUME 90.6 fl (80.0-96.0); MONO % 25.8 % (2.0-8.0); NEUTROPHILS # 3.7 10^3/uL (1.5-8.5); NEUTROPHILS % 59.6 % (36.0-66.0); PLATELET COUNT, AUTOMATED 215 10^3/uL (150-450); RED BLOOD COUNT 2.97 10^6/uL (4.30-6.10); WHITE BLOOD COUNT 6.2 10^3/uL (4.0-10.0)
[2022-03-27 07:37] LABS: BLOOD UREA NITROGEN 11 MG/DL (7-18); C REACTIVE PROTEIN QUANTITATIV 4.25 MG/DL (0.00-0.30); CALCIUM LEVEL 8.3 MG/DL (8.8-10.2); CARBON DIOXIDE LEVEL 30 MEQ/L (21-32); CHLORIDE LEVEL 109 MEQ/L (98-107); CREATININE FOR GFR 0.64 MG/DL (0.70-1.30); GLOMERULAR FILTRATION RATE > 60.0 (>42); GLUCOSE, FASTING 106 MG/DL (70-100); MAGNESIUM LEVEL 2.2 MG/DL (1.8-2.4); SODIUM LEVEL 143 MEQ/L (136-145)
[2022-03-27 07:57] LABS: MONO # 1.6 10^3/uL (0.0-0.8)
[2022-03-27] MEDS: INSULIN LISPRO (NovoLOG) PER UNIT SC SCH ×4 (08:25→21:00)
[2022-03-27] MEDS: LACTOBACILLUS ACIDOPHILUS CAP (BACID) PO SCH (08:50)
[2022-03-27] MEDS: ENOXAPARIN 40MG/0.4ML SYRINGE (J1650 PER 10MG) SC SCH (08:51)
[2022-03-27] MEDS: ASPIRIN 81MG ENTERIC TABLET PO SCH (08:54)
[2022-03-27] MEDS: PREGABALIN 50 MG CAP (LYRICA) PO SCH ×3 (08:54→21:30)
[2022-03-27] MEDS: PANTOPRAZOLE 40MG TAB (PROTONIX) PO SCH (08:54)
[2022-03-27] MEDS: CARVedilol 12.5 MG TAB PO SCH ×2 (08:55→21:30)
[2022-03-27] MEDS ORDERED: ALBUTEROL SULFATE 2.5 MG/0.5 ML INH NEB SOLN INH PRN (09:40)
[2022-03-27] MEDS: MOXIFLOXACIN 400 MG TAB PO SCH (10:58)
[2022-03-27] MEDS: SODIUM CHLORIDE 0.9% INJ 10 ML SYR IV PRN (11:02)
[2022-03-27 14:59] VITALS: BP 143/77
[2022-03-27 20:48] VITALS: BP 152/86
[2022-03-27] MEDS: ROSUVASTATIN 10 MG TAB (CRESTOR) PO SCH (21:30)
[2022-03-27] MEDS ORDERED: RAMELTEON 8 MG TAB (ROZEREM) PO PRN (22:20)
[2022-03-27] MEDS ORDERED: hydrOXYzine 50 MG TAB PO ONE (23:00)
[2022-03-28] MEDS: SODIUM CHLORIDE 0.9% INJ 10 ML SYR IV SCH ×2 (05:14→17:21)
[2022-03-28] MEDS: MOXIFLOXACIN 400 MG TAB PO SCH (05:14)
[2022-03-28] MEDS: SODIUM CHLORIDE 0.9% INJ 10 ML SYR IV PRN ×2 (05:15→06:24)
[2022-03-28 05:21] VITALS: BP 171/95
[2022-03-28 06:48] VITALS: BP 160/88
[2022-03-28 06:50] LABS: BASO % 0.1 % (0.0-1.0); EOS % 0.4 % (0.0-3.0); HEMATOCRIT 26.1 % (42.0-52.0); HEMOGLOBIN 7.9 g/dl (13.5-17.5); LYMPH # 0.8 10^3/uL (1.5-5.0); LYMPH % 11.3 % (24.0-44.0); MEAN CORPUSCULAR HEMOGLOBIN 27.5 pg (27.0-33.0); MEAN CORPUSCULAR HGB CONC 30.3 g/dl (32.0-36.5); MEAN CORPUSCULAR VOLUME 90.9 fl (80.0-96.0); NEUTROPHILS # 4.1 10^3/uL (1.5-8.5); PLATELET COUNT, AUTOMATED 218 10^3/uL (150-450); RED BLOOD COUNT 2.87 10^6/uL (4.30-6.10); WHITE BLOOD COUNT 7.3 10^3/uL (4.0-10.0)
[2022-03-28 07:10] LABS: BLOOD UREA NITROGEN 12 MG/DL (7-18); C REACTIVE PROTEIN QUANTITATIV 3.72 MG/DL (0.00-0.30); CALCIUM LEVEL 8.4 MG/DL (8.8-10.2); CARBON DIOXIDE LEVEL 28 MEQ/L (21-32); CHLORIDE LEVEL 110 MEQ/L (98-107); CREATININE FOR GFR 0.64 MG/DL (0.70-1.30); GLOMERULAR FILTRATION RATE > 60.0 (>42); GLUCOSE, FASTING 100 MG/DL (70-100); MAGNESIUM LEVEL 2.1 MG/DL (1.8-2.4); POTASSIUM SERUM 3.9 MEQ/L (3.5-5.1); SODIUM LEVEL 142 MEQ/L (136-145)
[2022-03-28 07:15] VITALS: BP 162/82
[2022-03-28] MEDS: INSULIN LISPRO (NovoLOG) PER UNIT SC SCH ×4 (07:30→21:00)
[2022-03-28 07:58] LABS: MONO # 2.1 10^3/uL (0.0-0.8)
[2022-03-28] MEDS: PANTOPRAZOLE 40MG TAB (PROTONIX) PO SCH (08:58)
[2022-03-28] MEDS: ASPIRIN 81MG ENTERIC TABLET PO SCH (09:01)
[2022-03-28] MEDS: PREGABALIN 50 MG CAP (LYRICA) PO SCH ×3 (09:01→21:09)
[2022-03-28] MEDS: CARVedilol 12.5 MG TAB PO SCH ×2 (09:01→21:10)
[2022-03-28] MEDS: LACTOBACILLUS ACIDOPHILUS CAP (BACID) PO SCH (09:02)
[2022-03-28] MEDS: ENOXAPARIN 40MG/0.4ML SYRINGE (J1650 PER 10MG) SC SCH (09:56)
[2022-03-28] MEDS: FUROSEMIDE 20 MG TAB PO SCH (10:33)
[2022-03-28 14:00] VITALS: BP 141/81
[2022-03-28] MEDS: ROSUVASTATIN 10 MG TAB (CRESTOR) PO SCH (21:09)
[2022-03-28 22:00] VITALS: BP 141/81
[2022-03-29] MEDS: SODIUM CHLORIDE 0.9% INJ 10 ML SYR IV SCH ×2 (05:34→17:00)
[2022-03-29] MEDS: SODIUM CHLORIDE 0.9% INJ 10 ML SYR IV PRN (05:35)
[2022-03-29 05:39] VITALS: BP 143/78
[2022-03-29 05:52] LABS: BASO % 0.1 % (0.0-1.0); EOS % 0.1 % (0.0-3.0); HEMATOCRIT 27.2 % (42.0-52.0); HEMOGLOBIN 8.4 g/dl (13.5-17.5); LYMPH % 14.1 % (24.0-44.0); MEAN CORPUSCULAR HEMOGLOBIN 27.9 pg (27.0-33.0); MEAN CORPUSCULAR HGB CONC 30.9 g/dl (32.0-36.5); MEAN CORPUSCULAR VOLUME 90.4 fl (80.0-96.0); MONO % 29.9 % (2.0-8.0); NEUTROPHILS # 3.8 10^3/uL (1.5-8.5); NEUTROPHILS % 53.1 % (36.0-66.0); PLATELET COUNT, AUTOMATED 217 10^3/uL (150-450); RED BLOOD COUNT 3.01 10^6/uL (4.30-6.10); WHITE BLOOD COUNT 7.2 10^3/uL (4.0-10.0)
[2022-03-29 06:15] LABS: BLOOD UREA NITROGEN 15 MG/DL (7-18); C REACTIVE PROTEIN QUANTITATIV 4.76 MG/DL (0.00-0.30); CALCIUM LEVEL 8.7 MG/DL (8.8-10.2); CARBON DIOXIDE LEVEL 29 MEQ/L (21-32); CHLORIDE LEVEL 108 MEQ/L (98-107); CREATININE FOR GFR 0.74 MG/DL (0.70-1.30); GLOMERULAR FILTRATION RATE > 60.0 (>42); GLUCOSE, FASTING 101 MG/DL (70-100); MAGNESIUM LEVEL 2.2 MG/DL (1.8-2.4); POTASSIUM SERUM 4.2 MEQ/L (3.5-5.1); SODIUM LEVEL 143 MEQ/L (136-145)
[2022-03-29] MEDS: MOXIFLOXACIN 400 MG TAB PO SCH (06:41)
[2022-03-29 07:17] LABS: MONO # 2.1 10^3/uL (0.0-0.8)
[2022-03-29] MEDS: INSULIN LISPRO (NovoLOG) PER UNIT SC SCH ×4 (07:30→21:00)
[2022-03-29] MEDS: ENOXAPARIN 40MG/0.4ML SYRINGE (J1650 PER 10MG) SC SCH (09:28)
[2022-03-29] MEDS: PREGABALIN 50 MG CAP (LYRICA) PO SCH ×3 (09:29→21:41)
[2022-03-29] MEDS: ASPIRIN 81MG ENTERIC TABLET PO SCH (09:29)
[2022-03-29] MEDS: LACTOBACILLUS ACIDOPHILUS CAP (BACID) PO SCH (09:30)
[2022-03-29] MEDS: PANTOPRAZOLE 40MG TAB (PROTONIX) PO SCH (09:30)
[2022-03-29] MEDS: FUROSEMIDE 20 MG TAB PO SCH (09:31)
[2022-03-29] MEDS: CARVedilol 12.5 MG TAB PO SCH ×2 (09:31→21:44)
[2022-03-29 13:47] VITALS: BP 141/75
[2022-03-29] MEDS: ROSUVASTATIN 10 MG TAB (CRESTOR) PO SCH (21:41)
[2022-03-29 22:15] VITALS: BP 150/77
[2022-03-30] MEDS: MOXIFLOXACIN 400 MG TAB PO SCH (06:10)
[2022-03-30] MEDS: SODIUM CHLORIDE 0.9% INJ 10 ML SYR IV SCH ×2 (06:10→17:23)
[2022-03-30 06:11] VITALS: BP 150/77
[2022-03-30 06:55] LABS: BASO % 0.1 % (0.0-1.0); EOS % 0.3 % (0.0-3.0); HEMOGLOBIN 8.7 g/dl (13.5-17.5); LYMPH # 1.1 10^3/uL (1.5-5.0); LYMPH % 15.5 % (24.0-44.0); MEAN CORPUSCULAR VOLUME 90.1 fl (80.0-96.0); NEUTROPHILS # 3.8 10^3/uL (1.5-8.5); NEUTROPHILS % 53.7 % (36.0-66.0); PLATELET COUNT, AUTOMATED 223 10^3/uL (150-450); RED BLOOD COUNT 3.22 10^6/uL (4.30-6.10)
[2022-03-30 07:14] LABS: BLOOD UREA NITROGEN 15 MG/DL (7-18); C REACTIVE PROTEIN QUANTITATIV 3.97 MG/DL (0.00-0.30); CALCIUM LEVEL 8.4 MG/DL (8.8-10.2); CARBON DIOXIDE LEVEL 28 MEQ/L (21-32); CHLORIDE LEVEL 110 MEQ/L (98-107); CREATININE FOR GFR 0.66 MG/DL (0.70-1.30); GLOMERULAR FILTRATION RATE > 60.0 (>42); GLUCOSE, FASTING 92 MG/DL (70-100); MAGNESIUM LEVEL 2.2 MG/DL (1.8-2.4); POTASSIUM SERUM 3.8 MEQ/L (3.5-5.1); SODIUM LEVEL 142 MEQ/L (136-145)
[2022-03-30 07:29] LABS: MONO # 1.9 10^3/uL (0.0-0.8)
[2022-03-30] MEDS: INSULIN LISPRO (NovoLOG) PER UNIT SC SCH ×4 (07:30→21:00)
[2022-03-30] MEDS: PREGABALIN 50 MG CAP (LYRICA) PO SCH ×3 (08:53→21:22)
[2022-03-30] MEDS: PANTOPRAZOLE 40MG TAB (PROTONIX) PO SCH (08:53)
[2022-03-30] MEDS: ASPIRIN 81MG ENTERIC TABLET PO SCH (08:55)
[2022-03-30] MEDS: FUROSEMIDE 20 MG TAB PO SCH (08:55)
[2022-03-30] MEDS: ENOXAPARIN 40MG/0.4ML SYRINGE (J1650 PER 10MG) SC SCH (08:56)
[2022-03-30] MEDS: CARVedilol 12.5 MG TAB PO SCH ×2 (08:56→21:23)
[2022-03-30] MEDS: LACTOBACILLUS ACIDOPHILUS CAP (BACID) PO SCH (08:57)
[2022-03-30 14:00] VITALS: BP 123/60
[2022-03-30] MEDS: ROSUVASTATIN 10 MG TAB (CRESTOR) PO SCH (21:22)
[2022-03-30 22:00] VITALS: BP 148/76
[2022-03-31 06:00] VITALS: BP 142/78
[2022-03-31] MEDS: MOXIFLOXACIN 400 MG TAB PO SCH (06:09)
[2022-03-31] MEDS: SODIUM CHLORIDE 0.9% INJ 10 ML SYR IV SCH ×2 (06:10→16:36)
[2022-03-31 06:31] LABS: BASO % 0.1 % (0.0-1.0); EOS % 0.1 % (0.0-3.0); HEMATOCRIT 27.9 % (42.0-52.0); HEMOGLOBIN 8.6 g/dl (13.5-17.5); LYMPH % 14.6 % (24.0-44.0); MEAN CORPUSCULAR HEMOGLOBIN 27.9 pg (27.0-33.0); MEAN CORPUSCULAR HGB CONC 30.8 g/dl (32.0-36.5); MEAN CORPUSCULAR VOLUME 90.6 fl (80.0-96.0); MONO % 28.9 % (2.0-8.0); NEUTROPHILS # 3.7 10^3/uL (1.5-8.5); NEUTROPHILS % 53.5 % (36.0-66.0); PLATELET COUNT, AUTOMATED 201 10^3/uL (150-450); RED BLOOD COUNT 3.08 10^6/uL (4.30-6.10); WHITE BLOOD COUNT 6.8 10^3/uL (4.0-10.0)
[2022-03-31 06:58] LABS: BLOOD UREA NITROGEN 20 MG/DL (7-18); C REACTIVE PROTEIN QUANTITATIV 2.99 MG/DL (0.00-0.30); CALCIUM LEVEL 8.3 MG/DL (8.8-10.2); CARBON DIOXIDE LEVEL 28 MEQ/L (21-32); CHLORIDE LEVEL 109 MEQ/L (98-107); CREATININE FOR GFR 0.61 MG/DL (0.70-1.30); GLOMERULAR FILTRATION RATE > 60.0 (>42); GLUCOSE, FASTING 97 MG/DL (70-100); MAGNESIUM LEVEL 2.2 MG/DL (1.8-2.4); SODIUM LEVEL 140 MEQ/L (136-145)
[2022-03-31] MEDS: INSULIN LISPRO (NovoLOG) PER UNIT SC SCH ×4 (07:02→21:00)
[2022-03-31] MEDS: PREGABALIN 50 MG CAP (LYRICA) PO SCH ×3 (08:05→21:08)
[2022-03-31] MEDS: LACTOBACILLUS ACIDOPHILUS CAP (BACID) PO SCH (08:05)
[2022-03-31] MEDS: ENOXAPARIN 40MG/0.4ML SYRINGE (J1650 PER 10MG) SC SCH (08:05)
[2022-03-31] MEDS: ASPIRIN 81MG ENTERIC TABLET PO SCH (08:05)
[2022-03-31] MEDS: PANTOPRAZOLE 40MG TAB (PROTONIX) PO SCH (08:05)
[2022-03-31] MEDS: CARVedilol 12.5 MG TAB PO SCH ×2 (08:06→21:10)
[2022-03-31] MEDS: FUROSEMIDE 20 MG TAB PO SCH (08:06)
[2022-03-31 09:00] VITALS: BP 140/78
[2022-03-31] MEDS: ROSUVASTATIN 10 MG TAB (CRESTOR) PO SCH (21:11)
[2022-04-01 06:00] VITALS: BP 143/79
[2022-04-01] MEDS: MOXIFLOXACIN 400 MG TAB PO SCH (06:20)
[2022-04-01] MEDS: SODIUM CHLORIDE 0.9% INJ 10 ML SYR IV SCH (06:20)
[2022-04-01 06:46] LABS: BASO % 0.2 % (0.0-1.0); EOS % 0.2 % (0.0-3.0); HEMATOCRIT 28.8 % (42.0-52.0); HEMOGLOBIN 8.7 g/dl (13.5-17.5); LYMPH # 1.1 10^3/uL (1.5-5.0); LYMPH % 16.5 % (24.0-44.0); MEAN CORPUSCULAR HEMOGLOBIN 27.9 pg (27.0-33.0); MEAN CORPUSCULAR HGB CONC 30.2 g/dl (32.0-36.5); MEAN CORPUSCULAR VOLUME 92.3 fl (80.0-96.0); MONO % 29.1 % (2.0-8.0); NEUTROPHILS # 3.3 10^3/uL (1.5-8.5); NEUTROPHILS % 51.8 % (36.0-66.0); PLATELET COUNT, AUTOMATED 214 10^3/uL (150-450); RED BLOOD COUNT 3.12 10^6/uL (4.30-6.10); WHITE BLOOD COUNT 6.4 10^3/uL (4.0-10.0)
[2022-04-01 07:30] LABS: MONO # 1.9 10^3/uL (0.0-0.8)
[2022-04-01] MEDS: INSULIN LISPRO (NovoLOG) PER UNIT SC SCH ×2 (07:30→12:10)
[2022-04-01 07:57] LABS: BLOOD UREA NITROGEN 22 MG/DL (7-18); CALCIUM LEVEL 8.5 MG/DL (8.8-10.2); CARBON DIOXIDE LEVEL 29 MEQ/L (21-32); CHLORIDE LEVEL 110 MEQ/L (98-107); CREATININE FOR GFR 0.62 MG/DL (0.70-1.30); GLOMERULAR FILTRATION RATE > 60.0 (>42); GLUCOSE, FASTING 84 MG/DL (70-100); MAGNESIUM LEVEL 2.3 MG/DL (1.8-2.4); SODIUM LEVEL 142 MEQ/L (136-145)
[2022-04-01] MEDS: PANTOPRAZOLE 40MG TAB (PROTONIX) PO SCH (08:49)
[2022-04-01] MEDS: ASPIRIN 81MG ENTERIC TABLET PO SCH (08:49)
[2022-04-01] MEDS: FUROSEMIDE 20 MG TAB PO SCH (08:49)
[2022-04-01] MEDS: LACTOBACILLUS ACIDOPHILUS CAP (BACID) PO SCH (08:49)
[2022-04-01] MEDS: PREGABALIN 50 MG CAP (LYRICA) PO SCH (08:49)
[2022-04-01 08:50] VITALS: BP 143/79
[2022-04-01] MEDS: CARVedilol 12.5 MG TAB PO SCH (08:50)
[2022-04-01] MEDS: ENOXAPARIN 40MG/0.4ML SYRINGE (J1650 PER 10MG) SC SCH (08:50)
[2022-04-01] MEDS ORDERED: MOXI400T11 PO (10:00)
== END 2022-04-01 14:07 | disposition home health service (06) | DRG 638 ==
LOC: M ED 15:19 → M ED INP 20:12 → M MS5PR 03-24 02:35
PROVIDERS: ADMIT Internal Medicine; ATTEND Family Medicine
PROC: 30233N1 Transfusion of Nonautologous Red Blood Cells into Peripheral Vein, Percutaneous Approach (ICD-10-PCS; principal; 2022-03-24 22:59)
PROC: 0H9MXZZ Drainage of Right Foot Skin, External Approach (ICD-10-PCS; 2022-03-25)
PROC: 02HV33Z Insertion of Infusion Device into Superior Vena Cava, Percutaneous Approach (ICD-10-PCS; 2022-03-25)
DX: E11.69 Type 2 diabetes mellitus with other specified complication (principal); L03.115 Cellulitis of right lower limb; I50.22 Chronic systolic (congestive) heart failure; A52.16 Charcot's arthropathy (tabetic); I11.0 Hypertensive heart disease with heart failure; D64.9 Anemia, unspecified; M79.89 Other specified soft tissue disorders; E78.5 Hyperlipidemia, unspecified; E11.42 Type 2 diabetes mellitus with diabetic polyneuropathy; E11.621 Type 2 diabetes mellitus with foot ulcer; L97.529 Non-pressure chronic ulcer of other part of left foot with unspecified severity; K59.00 Constipation, unspecified; L97.519 Non-pressure chronic ulcer of other part of right foot with unspecified severity; M65.171 Other infective (teno)synovitis, right ankle and foot; E87.6 Hypokalemia; J44.9 Chronic obstructive pulmonary disease, unspecified; D63.8 Anemia in other chronic diseases classified elsewhere; Z79.84 Long term (current) use of oral hypoglycemic drugs; Z98.49 Cataract extraction status, unspecified eye; Z79.82 Long term (current) use of aspirin; Z79.891 Long term (current) use of opiate analgesic; Z90.49 Acquired absence of other specified parts of digestive tract; Z79.899 Other long term (current) drug therapy

== ENCOUNTER → 2022-04-08 | Outpatient (REF) | payer MEDICARE, MEDICAID ==
[~2022-04-08] MED LIST changes: +ASPI-161 PO; +DOXY-259 PO; +DOXY100T; +MOXI400T11 PO; +NALO12.5 PO
[2022-04-08 18:08] LABS: HEMATOCRIT 27.1 % (42.0-52.0); HEMOGLOBIN 8.3 g/dl (13.5-17.5); MEAN CORPUSCULAR HEMOGLOBIN 28.1 pg (27.0-33.0); MEAN CORPUSCULAR HGB CONC 30.6 g/dl (32.0-36.5); MEAN CORPUSCULAR VOLUME 91.9 fl (80.0-96.0); PLATELET COUNT, AUTOMATED 255 10^3/uL (150-450); RED BLOOD COUNT 2.95 10^6/uL (4.30-6.10); WHITE BLOOD COUNT 7.6 10^3/uL (4.0-10.0)
[2022-04-08 18:39] LABS: ALBUMIN 2.7 GM/DL (3.2-5.2); ALT/SGPT 10 U/L (12-78); BILIRUBIN,TOTAL 0.4 MG/DL (0.2-1.0); BLOOD UREA NITROGEN 15 MG/DL (7-18); CALCIUM LEVEL 9.1 MG/DL (8.8-10.2); CARBON DIOXIDE LEVEL 32 MEQ/L (21-32); CHLORIDE LEVEL 103 MEQ/L (98-107); CHOLESTEROL LEVEL 145 MG/DL (<200); CHOLESTEROL RISK RATIO 2.788 (<5); CREATININE FOR GFR 0.73 MG/DL (0.70-1.30); GLOMERULAR FILTRATION RATE > 60.0 (>42); GLUCOSE, FASTING 102 MG/DL (70-100); HDL CHOLESTEROL 52 MG/DL (>40); LDL CHOLESTEROL 77 MG/DL (<100); NON-HDL-C 93 MG/DL; POTASSIUM SERUM 4.3 MEQ/L (3.5-5.1); SODIUM LEVEL 139 MEQ/L (136-145); TRIGLYCERIDES LEVEL 82 MG/DL (<150)
[2022-04-08 18:58] LABS: ANISOCYTOSIS 1+; EOSINOPHILS 1 % (0-3); LYMPHOCYTES 14 % (16-44); METAMYELOCYTES 1 % (0-0); MONOCYTES 21 % (0-5); MYELOCYTES 1 % (0-0); NEUTROPHILS 62 % (28-66); PLATELET ESTIMATE NORMAL (NORMAL)
[2022-04-08 18:59] LABS: HYPOCHROMASIA 1+
[2022-04-08 19:46] LABS: HEMOGLOBIN A1c 5.3 %
== END ==
LOC: M SFHCCLAY 14:21
PROVIDERS: ATTEND Nurse Practitioner Family
DX: E11.610 Type 2 diabetes mellitus with diabetic neuropathic arthropathy (principal); E11.40 Type 2 diabetes mellitus with diabetic neuropathy, unspecified; E78.2 Mixed hyperlipidemia

== ENCOUNTER → 2022-05-09 | Outpatient (REF) | payer MEDICARE, MEDICAID ==
[2022-05-09 17:32] LABS: HEMATOCRIT 33.8 % (42.0-52.0); HEMOGLOBIN 10.5 g/dl (13.5-17.5); MEAN CORPUSCULAR HEMOGLOBIN 28.8 pg (27.0-33.0); MEAN CORPUSCULAR HGB CONC 31.1 g/dl (32.0-36.5); MEAN CORPUSCULAR VOLUME 92.9 fl (80.0-96.0); PLATELET COUNT, AUTOMATED 206 10^3/uL (150-450); RED BLOOD COUNT 3.64 10^6/uL (4.30-6.10); WHITE BLOOD COUNT 7.2 10^3/uL (4.0-10.0)
[2022-05-09 18:51] LABS: PERCENT SATURATION 23.1 % (19.7-50.0)
== END ==
LOC: M SFHCCLAY 09:42
PROVIDERS: ATTEND Family Medicine
DX: D64.9 Anemia, unspecified (principal)

== ENCOUNTER → 2022-11-08 | Outpatient (REF) | payer MEDICARE, MEDICAID ==
[2022-11-08 17:13] LABS: ALBUMIN 3.8 G/DL (3.2-5.2); ALKALINE PHOSPHATASE 93 U/L (46-116); ALT/SGPT 18 U/L (7.0-40); AST/SGOT 21 U/L (<34); BILIRUBIN,TOTAL 0.7 MG/DL (0.3-1.2); BLOOD UREA NITROGEN 29 MG/DL (9-23); CALCIUM LEVEL 9.1 MG/DL (8.3-10.6); CARBON DIOXIDE LEVEL 33 MMOL/L (20-31); CHLORIDE LEVEL 104 MMOL/L (98-107); CHOLESTEROL LEVEL 148 MG/DL (<200); CHOLESTEROL RISK RATIO 4.02 (<5); CREATININE FOR GFR 0.93 MG/DL (0.70-1.30); GLOMERULAR FILTRATION RATE > 60.0 (>42); GLUCOSE, FASTING 82 MG/DL (74-106); HDL CHOLESTEROL 36.8 MG/DL (>40); LDL CHOLESTEROL 79.4 MG/DL (<100); NON-HDL-C 111 MG/DL; POTASSIUM SERUM 4.3 MMOL/L (3.5-5.1); SODIUM LEVEL 142 MMOL/L (136-145); TOTAL PROTEIN 7.4 G/DL (5.7-8.2); TRIGLYCERIDES LEVEL 159 MG/DL (<150)
[2022-11-08 17:14] LABS: BASO % 0.2 % (0.0-1.0); EOS # 0.1 10^3/uL (0.0-0.5); EOS % 0.8 % (0.0-3.0); HEMATOCRIT 38.6 % (42.0-52.0); HEMOGLOBIN 12.3 g/dl (13.5-17.5); LYMPH # 1.1 10^3/uL (1.5-5.0); LYMPH % 12.9 % (24.0-44.0); MEAN CORPUSCULAR HEMOGLOBIN 29.7 pg (27.0-33.0); MEAN CORPUSCULAR HGB CONC 31.9 g/dl (32.0-36.5); MEAN CORPUSCULAR VOLUME 93.2 fl (80.0-96.0); MONO % 38.7 % (2.0-8.0); NEUTROPHILS # 3.8 10^3/uL (1.5-8.5); NEUTROPHILS % 45.3 % (36.0-66.0); PLATELET COUNT, AUTOMATED 195 10^3/uL (150-450); RED BLOOD COUNT 4.14 10^6/uL (4.30-6.10); WHITE BLOOD COUNT 8.4 10^3/uL (4.0-10.0)
[2022-11-08 17:49] LABS: HEMOGLOBIN A1c 5.8 % (4.0-6.0)
[2022-11-08 18:09] LABS: MONO # 3.2 10^3/uL (0.0-0.8)
== END ==
LOC: M SFHCCLAY 13:32
PROVIDERS: ATTEND Family Medicine
DX: E11.40 Type 2 diabetes mellitus with diabetic neuropathy, unspecified (principal)

== ENCOUNTER → 2023-03-07 | Outpatient (REF) | payer MEDICARE, MEDICAID | LOC: M SFHCWOUN 16:10 | PROVIDERS: ATTEND Physician Assistant | DX: E11.621 Type 2 diabetes mellitus with foot ulcer (principal) ==

== ENCOUNTER 2023-04-07 06:12 | Observation (INO) | payer MEDICARE, MEDICAID ==
[2023-04-07] VITALS (7 sets, daily range): BP systolic 138–153; BP diastolic 71–82; TEMP 97.3–97.9; O2SAT 95–97
[~2023-04-07] VITALS: Ht 182.9 cm; Wt 95.3 kg
[~2023-04-07 06:12] MED LIST changes: +ceFAZolin SOD 2 GM in IV 1 EA IV ONE
[2023-04-07] MEDS ORDERED: LR 1,000 ML IV SCH ×2 (06:55→10:20)
[2023-04-07] MEDS ORDERED: BACITRACIN OINTMENT 30GM TUBE As Ordered ONE (07:14)
[2023-04-07] MEDS ORDERED: LIDOCAINE 2% W/EPINEPHRINE 20ML VIAL **PRES FREE As Ordered ONE (07:14)
[2023-04-07] MEDS ORDERED: POVIDONE-IODINE 5% OPHTH PREP SOL 30ML As Ordered ONE ×3 (07:15→08:09)
[2023-04-07] MEDS ORDERED: LIDOCAINE W/EPINEPHRINE 1% 20ML VIAL As Ordered ONE (07:15)
[2023-04-07] MEDS ORDERED: GENTAMICIN SULF 80MG/2ML VIAL As Ordered ONE (07:15)
[2023-04-07] MEDS ORDERED: propofoL 200 MG/20 ML VIAL As Ordered ONE (07:27)
[2023-04-07] MEDS ORDERED: ROCURONIUM BROMIDE 50MG/5ML VIAL As Ordered ONE ×2 (07:27→09:26)
[2023-04-07] MEDS ORDERED: ONDANSETRON 4MG 2ML VIAL As Ordered ONE (07:27)
[2023-04-07] MEDS ORDERED: LIDOCAINE 2% 100MG/5ML SDV (FOR ANES.) As Ordered ONE (07:27)
[2023-04-07] MEDS ORDERED: fentaNYL 250 MCG/5 ML INJECTION As Ordered ONE (07:28)
[2023-04-07] MEDS ORDERED: MIDAZOLAM INJ 2MG/2ML VIAL As Ordered ONE (07:28)
[2023-04-07] MEDS ORDERED: LACRILUBE (AKWA TEARS) OPHTH OINT 3.5GM As Ordered ONE (08:11)
[2023-04-07] MEDS ORDERED: PHENYLephrine 500MCG 5ML (100MCG/ML) SYRINGE As Ordered ONE (08:11)
[2023-04-07] MEDS ORDERED: ePHEDrine SULFATE 25 MG/5 ML(5MG/ML) SYRINGE As Ordered ONE (08:34)
[2023-04-07] MEDS ORDERED: SUGAMMADEX SODIUM 500 MG/5 ML VIAL (BRIDION) As Ordered ONE (08:38)
[2023-04-07] MEDS ORDERED: ACETAMINOPHEN 1000MG 100ML IV BAG As Ordered ONE (08:38)
[2023-04-07] MEDS ORDERED: METOCLOPRAMIDE INJ 10MG/2ML VIAL As Ordered ONE (08:44)
[2023-04-07] MEDS ORDERED: HYDROmorphone HCL 2MG/ML 1ML VIAL As Ordered ONE (09:52)
[2023-04-07] MEDS ORDERED: fentaNYL 100 MCG/2 ML INJECTION IV PRN (10:20)
[2023-04-07] MEDS ORDERED: oxyCODONE 5MG TAB PO PRN (10:20)
[2023-04-07] MEDS ORDERED: ONDANSETRON 4MG 2ML VIAL IV PRN (10:20)
[2023-04-07] MEDS ORDERED: HYDROMORPHONE HCL 0.5 MG/ 0.5 ML SYRINGE IV PRN (10:20)
[2023-04-07] MEDS ORDERED: ACETAMINOPHEN TAB 650MG DOSE (2X325MG) PO PRN (11:20)
[2023-04-07] MEDS ORDERED: GLUCOSE 4GM CHEW TABLET PO PRN (11:35)
[2023-04-07] MEDS ORDERED: GLUCAGON INJ 1MG VIAL SC PRN (11:35)
[2023-04-07] MEDS ORDERED: DEXTROSE 50% 50ML SYRINGE IV PRN (11:35)
[2023-04-07] MEDS ORDERED: INSULIN LISPRO (NovoLOG) PER UNIT SC SCH ×2 (11:35→21:00)
[2023-04-07] MEDS: INSULIN LISPRO (NovoLOG) PER UNIT SC SCH ×2 (12:21→18:23)
[2023-04-07] MEDS ORDERED: LISI40TA4 PO (14:01)
[2023-04-07] MEDS ORDERED: BAYE325T13 PO (14:01)
[2023-04-07] MEDS ORDERED: FURO40TA2 PO (14:01)
[2023-04-07] MEDS ORDERED: HOME MED LIST COMPLETE! XX SCH (14:05)
[2023-04-07] MEDS: PREGABALIN 50 MG CAP (LYRICA) PO SCH ×2 (15:32→21:04)
[2023-04-07] MEDS: FUROSEMIDE 40 MG TAB PO SCH (15:33)
[2023-04-07] MEDS: lisinopriL 40MG TAB PO SCH (15:33)
[2023-04-07] MEDS: ASPIRIN 325 MG TAB PO SCH (15:33)
[2023-04-07] MEDS: CARVedilol 12.5 MG TAB PO SCH ×2 (15:38→21:04)
[2023-04-07] MEDS ORDERED: ROSUVASTATIN 10 MG TAB (CRESTOR) PO SCH (21:00)
[2023-04-08 02:15] VITALS: BP 135/74; TEMP 98.1; O2SAT 98
[2023-04-08 06:06] LABS: HEMATOCRIT 33.9 % (42.0-52.0); HEMOGLOBIN 10.7 g/dl (13.5-17.5); MEAN CORPUSCULAR HEMOGLOBIN 29.1 pg (27.0-33.0); MEAN CORPUSCULAR HGB CONC 31.6 g/dl (32.0-36.5); MEAN CORPUSCULAR VOLUME 92.1 fl (80.0-96.0); PLATELET COUNT, AUTOMATED 159 10^3/uL (150-450); RED BLOOD COUNT 3.68 10^6/uL (4.30-6.10); WHITE BLOOD COUNT 13.9 10^3/uL (4.0-10.0)
[2023-04-08 06:15] VITALS: BP 153/81; TEMP 98.1; O2SAT 97
[2023-04-08 06:31] LABS: ALBUMIN 3.2 G/DL (3.2-5.2); ALKALINE PHOSPHATASE 92 U/L (46-116); ALT/SGPT 15 U/L (7.0-40); AST/SGOT 12 U/L (<34); BILIRUBIN,TOTAL 0.5 MG/DL (0.3-1.2); BLOOD UREA NITROGEN 17 MG/DL (9-23); CALCIUM LEVEL 8.4 MG/DL (8.3-10.6); CARBON DIOXIDE LEVEL 30 MMOL/L (20-31); CHLORIDE LEVEL 104 MMOL/L (98-107); CREATININE FOR GFR 0.67 MG/DL (0.70-1.30); GLOMERULAR FILTRATION RATE > 60.0 (>42); GLUCOSE, FASTING 97 MG/DL (74-106); POTASSIUM SERUM 3.9 MMOL/L (3.5-5.1); SODIUM LEVEL 140 MMOL/L (136-145); TOTAL PROTEIN 6.7 G/DL (5.7-8.2)
[2023-04-08 08:41] VITALS: BP 154/83
[2023-04-08] MEDS: ASPIRIN 325 MG TAB PO SCH (08:41)
[2023-04-08] MEDS: lisinopriL 40MG TAB PO SCH (08:41)
[2023-04-08] MEDS: INSULIN LISPRO (NovoLOG) PER UNIT SC SCH ×2 (08:41→12:00)
[2023-04-08] MEDS: FUROSEMIDE 40 MG TAB PO SCH (08:42)
[2023-04-08] MEDS: CARVedilol 12.5 MG TAB PO SCH (08:42)
[2023-04-08] MEDS: PREGABALIN 50 MG CAP (LYRICA) PO SCH (08:45)
== END 2023-04-08 14:37 | disposition home or self-care (01) ==
LOC: M SDC 06:12 → M RR INP 06:13 → M MSPAV 13:15
PROVIDERS: ADMIT Internal Medicine; ATTEND Internal Medicine
DX: C00.0 Malignant neoplasm of external upper lip (principal); I10 Essential (primary) hypertension; E11.40 Type 2 diabetes mellitus with diabetic neuropathy, unspecified; F32.A Depression, unspecified; M54.50 Low back pain, unspecified; I25.10 Atherosclerotic heart disease of native coronary artery without angina pectoris; G51.0 Bell's palsy; E78.2 Mixed hyperlipidemia; E11.621 Type 2 diabetes mellitus with foot ulcer; L97.429 Non-pressure chronic ulcer of left heel and midfoot with unspecified severity; I73.9 Peripheral vascular disease, unspecified; Z95.1 Presence of aortocoronary bypass graft; Z79.899 Other long term (current) drug therapy; Z79.84 Long term (current) use of oral hypoglycemic drugs; Z79.891 Long term (current) use of opiate analgesic; Z87.891 Personal history of nicotine dependence
CPT/HCPCS: 14061; 36415; 80053; 85027; 88305; 88331; G0378; J0131; J0690; J1100; J1170; J1580; J1815; J2250; J2371; J2405; J2765; J3010

== ENCOUNTER → 2023-06-20 | Outpatient (CLI) | payer MEDICARE, MEDICAID ==
[~2023-06-20] MED LIST changes: +BAYE325T13 PO; +FURO40TA2 PO; +LISI40TA4 PO; -ceFAZolin SOD 2 GM in IV 1 EA IV ONE
== END ==
LOC: M RAD 11:24
PROVIDERS: ATTEND Physician Assistant
DX: L97.522 Non-pressure chronic ulcer of other part of left foot with fat layer exposed (principal); L97.516 Non-pressure chronic ulcer of other part of right foot with bone involvement without evidence of necrosis; L97.512 Non-pressure chronic ulcer of other part of right foot with fat layer exposed; L97.524 Non-pressure chronic ulcer of other part of left foot with necrosis of bone

== ENCOUNTER → 2023-07-03 | Outpatient (REF) | payer MEDICARE, MEDICAID ==
[2023-07-03 19:02] LABS: HEMATOCRIT 29.2 % (42.0-52.0); HEMOGLOBIN 9.1 g/dl (13.5-17.5); MEAN CORPUSCULAR HEMOGLOBIN 29.1 pg (27.0-33.0); MEAN CORPUSCULAR HGB CONC 31.2 g/dl (32.0-36.5); MEAN CORPUSCULAR VOLUME 93.3 fl (80.0-96.0); PLATELET COUNT, AUTOMATED 309 10^3/uL (150-450); RED BLOOD COUNT 3.13 10^6/uL (4.30-6.10); WHITE BLOOD COUNT 12.2 10^3/uL (4.0-10.0)
[2023-07-04 03:13] LABS: IRON (FE) 15 UG/DL (65-175); PERCENT SATURATION 5.5 % (19.7-50.0); TOTAL IRON BINDING CAPACITY 273 UG/DL (250-425)
[2023-07-04 03:14] LABS: ALKALINE PHOSPHATASE 119 U/L (46-116); ALT/SGPT 13 U/L (7.0-40); AST/SGOT 14 U/L (<34); BILIRUBIN,TOTAL 0.5 MG/DL (0.3-1.2); BLOOD UREA NITROGEN 27 MG/DL (9-23); CALCIUM LEVEL 9.1 MG/DL (8.3-10.6); CARBON DIOXIDE LEVEL 27 MMOL/L (20-31); CHLORIDE LEVEL 98 MMOL/L (98-107); FERRITIN 55.8 NG/ML (10.5-307.3); GLOMERULAR FILTRATION RATE > 60.0 (>42); GLUCOSE, FASTING 153 MG/DL (74-106); POTASSIUM SERUM 4.9 MMOL/L (3.5-5.1); SODIUM LEVEL 134 MMOL/L (136-145); TOTAL PROTEIN 7.6 G/DL (5.7-8.2)
== END ==
LOC: M SFHCCLAY 14:26
PROVIDERS: ATTEND Family Medicine
DX: D64.9 Anemia, unspecified (principal); I10 Essential (primary) hypertension

== ENCOUNTER → 2023-07-10 | Outpatient (CLI) | payer MEDICARE, MEDICAID ==
[~2023-07-10] MED LIST changes: +ISOVUE-370 76% 100ML VIAL As Ordered ONE
== END ==
LOC: M RAD 13:27
PROVIDERS: ATTEND Physician Assistant
DX: E11.621 Type 2 diabetes mellitus with foot ulcer (principal); I70.203 Unspecified atherosclerosis of native arteries of extremities, bilateral legs
CPT/HCPCS: 75635; Q9967

== ENCOUNTER 2023-07-29 18:29 | Inpatient (IN) | payer MEDICARE, MEDICAID ==
[~2023-07-29] VITALS: Ht 182.9 cm; Wt 91.0 kg
[~2023-07-29 18:29] MED LIST changes: -ISOVUE-370 76% 100ML VIAL As Ordered ONE
[2023-07-29] MEDS ORDERED: GLUCOSE 4GM CHEW TABLET PO PRN (21:20)
[2023-07-29] MEDS ORDERED: ALBUTEROL SULFATE 2.5MG/0.5ML INH NEB SOLN NEB PRN (21:20)
[2023-07-29] MEDS ORDERED: GLUCAGON INJ 1MG VIAL SC PRN (21:20)
[2023-07-29] MEDS ORDERED: HYDROMORPHONE HCL 0.5 MG/ 0.5 ML SYRINGE IV PRN (21:20)
[2023-07-29] MEDS ORDERED: ONDANSETRON 4MG 2ML VIAL IV PRN (21:20)
[2023-07-29] MEDS ORDERED: NS 1,000 ML IV SCH (21:20)
[2023-07-29] MEDS ORDERED: DEXTROSE 50% 50ML SYRINGE IV PRN (21:20)
[2023-07-29 21:30] VITALS: BP 112/61; TEMP 96.2; O2SAT 96
[2023-07-29] MEDS: LR 1,000 ML IV SCH (22:32)
[2023-07-29 22:46] LABS: EOS % 0.1 % (0.0-3.0); HEMATOCRIT 24.8 % (42.0-52.0); HEMOGLOBIN 7.9 g/dl (13.5-17.5); LYMPH # 0.7 10^3/uL (1.5-5.0); LYMPH % 3.2 % (24.0-44.0); MEAN CORPUSCULAR HEMOGLOBIN 28.8 pg (27.0-33.0); MEAN CORPUSCULAR HGB CONC 31.9 g/dl (32.0-36.5); MEAN CORPUSCULAR VOLUME 90.5 fl (80.0-96.0); MONO % 14.9 % (2.0-8.0); NEUTROPHILS # 17.7 10^3/uL (1.5-8.5); NEUTROPHILS % 80.8 % (36.0-66.0); PLATELET COUNT, AUTOMATED 277 10^3/uL (150-450); RED BLOOD COUNT 2.74 10^6/uL (4.30-6.10); WHITE BLOOD COUNT 21.9 10^3/uL (4.0-10.0)
[2023-07-29 22:58] LABS: INR 1.44
[2023-07-29] MEDS ORDERED: NALO25TA PO (22:58)
[2023-07-29 22:59] LABS: PARTIAL THROMBOPLASTIN TIME 39.9 SECONDS (24.8-34.2)
[2023-07-29] MEDS ORDERED: PIPERACILLIN/TAZOBACTAM SOD 3.375 GM in D5W MINI-BAG PLUS 50 ML IV ONE (23:00)
[2023-07-29] MEDS ORDERED: HOME MED LIST COMPLETE! XX SCH (23:00)
[2023-07-29 23:05] LABS: MONO # 3.3 10^3/uL (0.0-0.8)
[2023-07-29 23:12] LABS: ALKALINE PHOSPHATASE 116 U/L (46-116); ALT/SGPT 23 U/L (7.0-40); AST/SGOT 43 U/L (<34); BILIRUBIN,TOTAL 0.4 MG/DL (0.3-1.2); BLOOD UREA NITROGEN 29 MG/DL (9-23); CARBON DIOXIDE LEVEL 30 MMOL/L (20-31); CHLORIDE LEVEL 101 MMOL/L (98-107); CREATININE FOR GFR 0.76 MG/DL (0.70-1.30); GLOMERULAR FILTRATION RATE > 60.0 (>42); GLUCOSE, FASTING 103 MG/DL (74-106); POTASSIUM SERUM 3.5 MMOL/L (3.5-5.1); SODIUM LEVEL 139 MMOL/L (136-145); TOTAL PROTEIN 7.1 G/DL (5.7-8.2)
[2023-07-30] VITALS (7 sets, daily range): BP systolic 110–120; BP diastolic 54–64; TEMP 97.9–98.6; O2SAT 96–99
[2023-07-30] MEDS ORDERED: UNRESOLVED CLARIFICATION ENTRY XX SCH (00:01)
[2023-07-30] MEDS: INSULIN LISPRO (NovoLOG) PER UNIT SC SCH ×5 (00:34→20:03)
[2023-07-30] MEDS: HYDROMORPHONE HCL 0.5 MG/ 0.5 ML SYRINGE IV PRN ×2 (00:35→16:50)
[2023-07-30] MEDS ORDERED: VANCOMYCIN HCL 1,000 MG, VIAL MATE ADAPTER 1 EACH in NS 250 ML IV ONE ×4 (01:00)
[2023-07-30] MEDS: PIPERACILLIN/TAZOBACTAM SOD 3.375 GM in D5W MINI-BAG PLUS 50 ML IV SCH ×4 (05:55→23:13)
[2023-07-30 08:01] LABS: BASO % 0.1 % (0.0-1.0); EOS % 0.1 % (0.0-3.0); HEMATOCRIT 23.3 % (42.0-52.0); HEMOGLOBIN 7.1 g/dl (13.5-17.5); LYMPH # 0.4 10^3/uL (1.5-5.0); LYMPH % 2.5 % (24.0-44.0); MEAN CORPUSCULAR HEMOGLOBIN 27.6 pg (27.0-33.0); MEAN CORPUSCULAR HGB CONC 30.5 g/dl (32.0-36.5); MEAN CORPUSCULAR VOLUME 90.7 fl (80.0-96.0); MONO % 15.6 % (2.0-8.0); NEUTROPHILS # 11.5 10^3/uL (1.5-8.5); NEUTROPHILS % 80.6 % (36.0-66.0); PLATELET COUNT, AUTOMATED 251 10^3/uL (150-450); RED BLOOD COUNT 2.57 10^6/uL (4.30-6.10); WHITE BLOOD COUNT 14.2 10^3/uL (4.0-10.0)
[2023-07-30 08:25] LABS: MONO # 2.2 10^3/uL (0.0-0.8)
[2023-07-30 08:31] LABS: BLOOD UREA NITROGEN 27 MG/DL (9-23); CALCIUM LEVEL 8.5 MG/DL (8.3-10.6); CARBON DIOXIDE LEVEL 29 MMOL/L (20-31); CHLORIDE LEVEL 104 MMOL/L (98-107); CREATININE FOR GFR 0.75 MG/DL (0.70-1.30); GLOMERULAR FILTRATION RATE > 60.0 (>42); GLUCOSE, FASTING 94 MG/DL (74-106); POTASSIUM SERUM 3.5 MMOL/L (3.5-5.1); SODIUM LEVEL 140 MMOL/L (136-145)
[2023-07-30] MEDS: CARVedilol 12.5 MG TAB PO SCH ×2 (09:00→20:11)
[2023-07-30] MEDS: VANCOMYCIN HCL 1,000 MG, VIAL MATE ADAPTER 1 EACH in NS 250 ML IV SCH ×2 (09:36→22:19)
[2023-07-30] MEDS: LR 1,000 ML IV SCH (09:36)
[2023-07-30] MEDS ORDERED: LIDOCAINE 1% SDV 30ML VIAL As Ordered ONE (09:53)
[2023-07-30] MEDS ORDERED: propofoL 200 MG/20 ML VIAL As Ordered ONE (10:15)
[2023-07-30] MEDS ORDERED: fentaNYL 100 MCG/2 ML INJECTION As Ordered ONE (10:15)
[2023-07-30] MEDS ORDERED: LIDOCAINE 2% 100MG/5ML SDV (FOR ANES.) As Ordered ONE (10:15)
[2023-07-30] MEDS: PREGABALIN 50 MG CAP (LYRICA) PO SCH ×3 (10:17→20:11)
[2023-07-30] MEDS ORDERED: PHENYLephrine 500MCG 5ML (100MCG/ML) SYRINGE As Ordered ONE (10:32)
[2023-07-30] MEDS ORDERED: MORPHINE 2 MG/ML 1ML VIAL IV PRN (10:40)
[2023-07-30] MEDS ORDERED: oxyCODONE 5MG TAB PO PRN (10:40)
[2023-07-30] MEDS ORDERED: ONDANSETRON 4MG 2ML VIAL IV PRN (10:40)
[2023-07-30] MEDS ORDERED: fentaNYL 100 MCG/2 ML INJECTION IV PRN (10:40)
[2023-07-30] MEDS: SENOKOT S TAB PO SCH ×2 (11:34→20:11)
[2023-07-30] MEDS: ASPIRIN 325 MG TAB PO SCH (11:34)
[2023-07-30] MEDS ORDERED: GLUCAGON INJ 1MG VIAL SC PRN (17:10)
[2023-07-30] MEDS ORDERED: GLUCOSE 4GM CHEW TABLET PO PRN (17:10)
[2023-07-30] MEDS ORDERED: DEXTROSE 50% 50ML SYRINGE IV PRN (17:10)
[2023-07-30] MEDS: ACETAMINOPHEN TAB 650MG DOSE (2X325MG) PO PRN (20:10)
[2023-07-30] MEDS: ROSUVASTATIN 10 MG TAB (CRESTOR) PO SCH (20:11)
[2023-07-31] VITALS (7 sets, daily range): BP systolic 116–139; BP diastolic 60–67; TEMP 97.5–98.5; O2SAT 98–100
[2023-07-31] MEDS: PIPERACILLIN/TAZOBACTAM SOD 3.375 GM in D5W MINI-BAG PLUS 50 ML IV SCH ×4 (04:43→23:05)
[2023-07-31 05:35] LABS: BASO % 0.1 % (0.0-1.0); EOS % 0.2 % (0.0-3.0); HEMATOCRIT 22.7 % (42.0-52.0); LYMPH # 0.6 10^3/uL (1.5-5.0); LYMPH % 5.2 % (24.0-44.0); MEAN CORPUSCULAR HEMOGLOBIN 27.8 pg (27.0-33.0); MEAN CORPUSCULAR HGB CONC 30.8 g/dl (32.0-36.5); MEAN CORPUSCULAR VOLUME 90.1 fl (80.0-96.0); MONO % 17.1 % (2.0-8.0); NEUTROPHILS % 75.6 % (36.0-66.0); PLATELET COUNT, AUTOMATED 224 10^3/uL (150-450); RED BLOOD COUNT 2.52 10^6/uL (4.30-6.10)
[2023-07-31 06:07] LABS: BLOOD UREA NITROGEN 24 MG/DL (9-23); CALCIUM LEVEL 8.2 MG/DL (8.3-10.6); CARBON DIOXIDE LEVEL 30 MMOL/L (20-31); CHLORIDE LEVEL 103 MMOL/L (98-107); CREATININE FOR GFR 0.83 MG/DL (0.70-1.30); GLOMERULAR FILTRATION RATE > 60.0 (>42); GLUCOSE, FASTING 128 MG/DL (74-106); POTASSIUM SERUM 3.8 MMOL/L (3.5-5.1); SODIUM LEVEL 140 MMOL/L (136-145)
[2023-07-31] MEDS: INSULIN LISPRO (NovoLOG) PER UNIT SC SCH ×4 (09:31→20:29)
[2023-07-31] MEDS: CARVedilol 12.5 MG TAB PO SCH ×2 (09:32→20:34)
[2023-07-31] MEDS: ASPIRIN 325 MG TAB PO SCH (09:32)
[2023-07-31] MEDS: SENOKOT S TAB PO SCH ×2 (09:32→20:34)
[2023-07-31] MEDS: PREGABALIN 50 MG CAP (LYRICA) PO SCH ×3 (09:32→20:34)
[2023-07-31] MEDS: VANCOMYCIN HCL 1,000 MG, VIAL MATE ADAPTER 1 EACH in NS 250 ML IV SCH ×2 (10:56→21:17)
[2023-07-31 12:20] LABS: PROCALCITONIN 1.33 ng/ml
[2023-07-31 12:38] LABS: ERYTHROCYTE SEDIMENTATION RATE 75 mm/hr (0-20)
[2023-07-31] MEDS: HEPARIN SOD (PORCINE) 5000UNITS/ML 1ML VIAL/SYRINGE SQ SCH ×2 (13:13→20:34)
[2023-07-31] MEDS: ROSUVASTATIN 10 MG TAB (CRESTOR) PO SCH (20:34)
[2023-08-01] VITALS (15 sets, daily range): BP systolic 122–140; BP diastolic 56–86; TEMP 97.4–99.7; O2SAT 94–100
[2023-08-01] MEDS: ACETAMINOPHEN TAB 650MG DOSE (2X325MG) PO PRN (04:12)
[2023-08-01] MEDS: PIPERACILLIN/TAZOBACTAM SOD 3.375 GM in D5W MINI-BAG PLUS 50 ML IV SCH ×3 (04:12→17:14)
[2023-08-01] MEDS: HEPARIN SOD (PORCINE) 5000UNITS/ML 1ML VIAL/SYRINGE SQ SCH ×4 (05:21→22:51)
[2023-08-01 05:53] LABS: BASO % 0.1 % (0.0-1.0); EOS % 0.2 % (0.0-3.0); HEMATOCRIT 21.8 % (42.0-52.0); LYMPH # 0.9 10^3/uL (1.5-5.0); LYMPH % 6.5 % (24.0-44.0); MEAN CORPUSCULAR HEMOGLOBIN 27.5 pg (27.0-33.0); MEAN CORPUSCULAR HGB CONC 30.7 g/dl (32.0-36.5); MEAN CORPUSCULAR VOLUME 89.3 fl (80.0-96.0); MONO % 25.4 % (2.0-8.0); NEUTROPHILS # 8.4 10^3/uL (1.5-8.5); NEUTROPHILS % 64.7 % (36.0-66.0); PLATELET COUNT, AUTOMATED 219 10^3/uL (150-450); RED BLOOD COUNT 2.44 10^6/uL (4.30-6.10)
[2023-08-01 06:14] LABS: BLOOD UREA NITROGEN 19 MG/DL (9-23); CALCIUM LEVEL 7.9 MG/DL (8.3-10.6); CARBON DIOXIDE LEVEL 27 MMOL/L (20-31); CHLORIDE LEVEL 104 MMOL/L (98-107); CREATININE FOR GFR 0.71 MG/DL (0.70-1.30); GLOMERULAR FILTRATION RATE > 60.0 (>42); GLUCOSE, FASTING 128 MG/DL (74-106); POTASSIUM SERUM 3.6 MMOL/L (3.5-5.1); SODIUM LEVEL 138 MMOL/L (136-145)
[2023-08-01 06:57] LABS: HEMOGLOBIN 6.7 g/dl (13.5-17.5)
[2023-08-01 06:58] LABS: MONO # 3.3 10^3/uL (0.0-0.8)
[2023-08-01] MEDS: SENOKOT S TAB PO SCH (09:00)
[2023-08-01] MEDS: INSULIN LISPRO (NovoLOG) PER UNIT SC SCH ×4 (09:30→20:01)
[2023-08-01] MEDS: ASPIRIN 325 MG TAB PO SCH (09:36)
[2023-08-01] MEDS: PREGABALIN 50 MG CAP (LYRICA) PO SCH ×3 (09:37→20:15)
[2023-08-01] MEDS: CARVedilol 12.5 MG TAB PO SCH ×2 (09:38→20:15)
[2023-08-01] MEDS: VANCOMYCIN HCL 1,000 MG, VIAL MATE ADAPTER 1 EACH in NS 250 ML IV SCH (10:09)
[2023-08-01] MEDS ORDERED: FUROSEMIDE 20MG/2ML VIAL IV ONE (14:00)
[2023-08-01] MEDS: cefTRIAXone SOD 2 GM in D5W MINI-BAG PLUS 50 ML IV SCH (20:14)
[2023-08-01] MEDS: ROSUVASTATIN 10 MG TAB (CRESTOR) PO SCH (20:15)
[2023-08-01] MEDS ORDERED: PROHANCE 279.3MG/ML 15ML VIAL As Ordered ONE (21:58)
[2023-08-01] MEDS ORDERED: PROHANCE 279.3MG/ML 5ML VIAL As Ordered ONE (21:58)
[2023-08-02 04:23] VITALS: BP 139/71; TEMP 97.6; O2SAT 99
[2023-08-02] MEDS: HEPARIN SOD (PORCINE) 5000UNITS/ML 1ML VIAL/SYRINGE SQ SCH ×3 (05:03→21:58)
[2023-08-02 07:17] LABS: HEMATOCRIT 27.4 % (42.0-52.0); HEMOGLOBIN 8.6 g/dl (13.5-17.5); MEAN CORPUSCULAR HEMOGLOBIN 28.1 pg (27.0-33.0); MEAN CORPUSCULAR HGB CONC 31.4 g/dl (32.0-36.5); MEAN CORPUSCULAR VOLUME 89.5 fl (80.0-96.0); PLATELET COUNT, AUTOMATED 233 10^3/uL (150-450); RED BLOOD COUNT 3.06 10^6/uL (4.30-6.10); WHITE BLOOD COUNT 13.1 10^3/uL (4.0-10.0)
[2023-08-02 07:30] VITALS: BP 157/70; TEMP 97.1; O2SAT 98
[2023-08-02] MEDS: INSULIN LISPRO (NovoLOG) PER UNIT SC SCH ×4 (07:30→20:07)
[2023-08-02 07:43] LABS: BLOOD UREA NITROGEN 14 MG/DL (9-23); CALCIUM LEVEL 7.9 MG/DL (8.3-10.6); CARBON DIOXIDE LEVEL 28 MMOL/L (20-31); CHLORIDE LEVEL 108 MMOL/L (98-107); GLOMERULAR FILTRATION RATE > 60.0 (>42); GLUCOSE, FASTING 109 MG/DL (74-106); POTASSIUM SERUM 3.6 MMOL/L (3.5-5.1); SODIUM LEVEL 141 MMOL/L (136-145)
[2023-08-02 07:48] LABS: ANISOCYTOSIS 1+; LYMPHOCYTES 7 % (16-44); MONOCYTES 9 % (0-5); MYELOCYTES 1 % (0-0); NEUTROPHILS 83 % (28-66); PLATELET ESTIMATE NORMAL (NORMAL)
[2023-08-02 07:49] LABS: HYPOCHROMASIA 1+; OVALOCYTES 1+; POIKILOCYTOSIS 1+; TEAR DROP CELLS 1+
[2023-08-02 07:50] LABS: POLYCHROMASIA 1+
[2023-08-02] MEDS: ASPIRIN 325 MG TAB PO SCH (09:51)
[2023-08-02] MEDS: CARVedilol 12.5 MG TAB PO SCH ×2 (09:51→20:24)
[2023-08-02] MEDS: PREGABALIN 50 MG CAP (LYRICA) PO SCH ×3 (09:52→20:24)
[2023-08-02 12:00] VITALS: BP 105/58; TEMP 97.9; O2SAT 97
[2023-08-02] MEDS: FUROSEMIDE 40 MG TAB PO SCH (12:18)
[2023-08-02 16:29] VITALS: BP 131/74; TEMP 97.9; O2SAT 100
[2023-08-02 19:16] VITALS: BP 135/62; TEMP 97.5; O2SAT 99
[2023-08-02] MEDS: ACETAMINOPHEN TAB 650MG DOSE (2X325MG) PO PRN (20:23)
[2023-08-02] MEDS: cefTRIAXone SOD 2 GM in D5W MINI-BAG PLUS 50 ML IV SCH (20:23)
[2023-08-02] MEDS: ROSUVASTATIN 10 MG TAB (CRESTOR) PO SCH (20:24)
[2023-08-02 23:10] VITALS: BP 131/67; TEMP 98.1; O2SAT 98
[2023-08-03 04:36] VITALS: BP 149/71; TEMP 97.3; O2SAT 98
[2023-08-03] MEDS: HEPARIN SOD (PORCINE) 5000UNITS/ML 1ML VIAL/SYRINGE SQ SCH ×3 (05:03→21:23)
[2023-08-03] MEDS: INSULIN LISPRO (NovoLOG) PER UNIT SC SCH ×4 (07:30→20:02)
[2023-08-03 07:35] VITALS: BP 154/74; TEMP 96.7; O2SAT 99
[2023-08-03 07:54] LABS: HEMATOCRIT 29.3 % (42.0-52.0); HEMOGLOBIN 9.2 g/dl (13.5-17.5); MEAN CORPUSCULAR HEMOGLOBIN 28.5 pg (27.0-33.0); MEAN CORPUSCULAR HGB CONC 31.4 g/dl (32.0-36.5); MEAN CORPUSCULAR VOLUME 90.7 fl (80.0-96.0); PLATELET COUNT, AUTOMATED 246 10^3/uL (150-450); RED BLOOD COUNT 3.23 10^6/uL (4.30-6.10); WHITE BLOOD COUNT 12.5 10^3/uL (4.0-10.0)
[2023-08-03 07:56] LABS: BLOOD UREA NITROGEN 17 MG/DL (9-23); CALCIUM LEVEL 8.1 MG/DL (8.3-10.6); CARBON DIOXIDE LEVEL 30 MMOL/L (20-31); CHLORIDE LEVEL 101 MMOL/L (98-107); CREATININE FOR GFR 0.57 MG/DL (0.70-1.30); GLOMERULAR FILTRATION RATE > 60.0 (>42); GLUCOSE, FASTING 109 MG/DL (74-106); SODIUM LEVEL 140 MMOL/L (136-145)
[2023-08-03 08:24] LABS: ANISOCYTOSIS 2+; LYMPHOCYTES 9 % (16-44); MONOCYTES 17 % (0-5); MYELOCYTES 1 % (0-0); NEUTROPHILS 72 % (28-66); PLATELET ESTIMATE NORMAL (NORMAL); POLYCHROMASIA 1+
[2023-08-03 08:25] LABS: OVALOCYTES 1+; POIKILOCYTOSIS 1+; TEAR DROP CELLS 1+
[2023-08-03] MEDS: PREGABALIN 50 MG CAP (LYRICA) PO SCH ×3 (08:29→20:02)
[2023-08-03] MEDS: ASPIRIN 325 MG TAB PO SCH (08:29)
[2023-08-03] MEDS: CARVedilol 12.5 MG TAB PO SCH ×2 (08:29→20:02)
[2023-08-03] MEDS: FUROSEMIDE 40 MG TAB PO SCH (08:30)
[2023-08-03 12:00] VITALS: BP 129/79; TEMP 97.3; O2SAT 99
[2023-08-03 16:55] VITALS: BP 135/65; TEMP 96.6; O2SAT 98
[2023-08-03 19:11] VITALS: BP 141/68; TEMP 96.9; O2SAT 98
[2023-08-03] MEDS: cefTRIAXone SOD 2 GM in D5W MINI-BAG PLUS 50 ML IV SCH (20:02)
[2023-08-03] MEDS: ROSUVASTATIN 10 MG TAB (CRESTOR) PO SCH (20:02)
[2023-08-03] MEDS: ACETAMINOPHEN TAB 650MG DOSE (2X325MG) PO PRN (21:23)
[2023-08-03 23:37] VITALS: BP 129/67; TEMP 98; O2SAT 96
[2023-08-04 03:14] VITALS: BP 148/66; TEMP 97.2; O2SAT 99
[2023-08-04 03:32] LABS: HEMATOCRIT 29.1 % (42.0-52.0); HEMOGLOBIN 9.1 g/dl (13.5-17.5); MEAN CORPUSCULAR HEMOGLOBIN 28.8 pg (27.0-33.0); MEAN CORPUSCULAR HGB CONC 31.3 g/dl (32.0-36.5); MEAN CORPUSCULAR VOLUME 92.1 fl (80.0-96.0); PLATELET COUNT, AUTOMATED 252 10^3/uL (150-450); RED BLOOD COUNT 3.16 10^6/uL (4.30-6.10); WHITE BLOOD COUNT 13.2 10^3/uL (4.0-10.0)
[2023-08-04 04:01] LABS: ATYPICAL LYMPH 2 % (0-5); LYMPHOCYTES 7 % (16-44); MONOCYTES 17 % (0-5); MYELOCYTES 2 % (0-0); NEUTROPHILS 70 % (28-66)
[2023-08-04 04:02] LABS: PLATELET ESTIMATE NORMAL (NORMAL)
[2023-08-04 04:03] LABS: ANISOCYTOSIS 1+; OVALOCYTES 1+; POIKILOCYTOSIS 1+
[2023-08-04 04:27] LABS: BLOOD UREA NITROGEN 26 MG/DL (9-23); CALCIUM LEVEL 8.2 MG/DL (8.3-10.6); CARBON DIOXIDE LEVEL 29 MMOL/L (20-31); CHLORIDE LEVEL 105 MMOL/L (98-107); CREATININE FOR GFR 0.64 MG/DL (0.70-1.30); GLOMERULAR FILTRATION RATE > 60.0 (>42); GLUCOSE, FASTING 127 MG/DL (74-106); POTASSIUM SERUM 4.2 MMOL/L (3.5-5.1); SODIUM LEVEL 139 MMOL/L (136-145)
[2023-08-04] MEDS: HEPARIN SOD (PORCINE) 5000UNITS/ML 1ML VIAL/SYRINGE SQ SCH ×3 (05:19→20:47)
[2023-08-04 08:00] VITALS: BP 172/80; TEMP 96.6; O2SAT 98
[2023-08-04] MEDS: PREGABALIN 50 MG CAP (LYRICA) PO SCH ×3 (08:22→20:46)
[2023-08-04] MEDS: ASPIRIN 325 MG TAB PO SCH (08:22)
[2023-08-04] MEDS: FUROSEMIDE 40 MG TAB PO SCH (08:22)
[2023-08-04] MEDS: CARVedilol 12.5 MG TAB PO SCH ×2 (08:22→20:46)
[2023-08-04] MEDS: INSULIN LISPRO (NovoLOG) PER UNIT SC SCH ×4 (08:23→20:47)
[2023-08-04 11:15] VITALS: BP 128/73; TEMP 97.5; O2SAT 99
[2023-08-04 14:00] VITALS: BP 129/73; TEMP 97.5; O2SAT 98
[2023-08-04] MEDS: ROSUVASTATIN 10 MG TAB (CRESTOR) PO SCH (20:45)
[2023-08-04] MEDS: cefTRIAXone SOD 2 GM in D5W MINI-BAG PLUS 50 ML IV SCH (20:47)
[2023-08-04 21:09] VITALS: BP 144/66; TEMP 97.7; O2SAT 99
[2023-08-04] MEDS: ACETAMINOPHEN TAB 650MG DOSE (2X325MG) PO PRN (23:34)
[2023-08-05 06:00] VITALS: BP 145/85; TEMP 97.7; O2SAT 99
[2023-08-05 06:00] LABS: HEMATOCRIT 30.5 % (42.0-52.0); HEMOGLOBIN 9.5 g/dl (13.5-17.5); MEAN CORPUSCULAR HEMOGLOBIN 28.1 pg (27.0-33.0); MEAN CORPUSCULAR HGB CONC 31.1 g/dl (32.0-36.5); MEAN CORPUSCULAR VOLUME 90.2 fl (80.0-96.0); PLATELET COUNT, AUTOMATED 244 10^3/uL (150-450); RED BLOOD COUNT 3.38 10^6/uL (4.30-6.10); WHITE BLOOD COUNT 10.3 10^3/uL (4.0-10.0)
[2023-08-05] MEDS: HEPARIN SOD (PORCINE) 5000UNITS/ML 1ML VIAL/SYRINGE SQ SCH ×3 (06:05→20:29)
[2023-08-05 06:31] LABS: BLOOD UREA NITROGEN 22 MG/DL (9-23); CALCIUM LEVEL 8.6 MG/DL (8.3-10.6); CARBON DIOXIDE LEVEL 29 MMOL/L (20-31); CHLORIDE LEVEL 104 MMOL/L (98-107); CREATININE FOR GFR 0.61 MG/DL (0.70-1.30); GLOMERULAR FILTRATION RATE > 60.0 (>42); GLUCOSE, FASTING 103 MG/DL (74-106); SODIUM LEVEL 140 MMOL/L (136-145)
[2023-08-05 07:11] LABS: ANISOCYTOSIS 1+; ATYPICAL LYMPH 1 % (0-5); LYMPHOCYTES 16 % (16-44); METAMYELOCYTES 1 % (0-0); MONOCYTES 29 % (0-5); MYELOCYTES 2 % (0-0); NEUTROPHILS 51 % (28-66); PLATELET ESTIMATE NORMAL (NORMAL); POLYCHROMASIA 1+
[2023-08-05 07:13] LABS: OVALOCYTES 1+; POIKILOCYTOSIS 1+
[2023-08-05] MEDS: INSULIN LISPRO (NovoLOG) PER UNIT SC SCH ×5 (07:50→20:30)
[2023-08-05] MEDS: ACETAMINOPHEN TAB 650MG DOSE (2X325MG) PO PRN (07:51)
[2023-08-05] MEDS: ASPIRIN 325 MG TAB PO SCH (08:34)
[2023-08-05] MEDS: PREGABALIN 50 MG CAP (LYRICA) PO SCH ×3 (08:35→20:29)
[2023-08-05] MEDS: FUROSEMIDE 40 MG TAB PO SCH (08:36)
[2023-08-05] MEDS: CARVedilol 12.5 MG TAB PO SCH ×2 (08:36→20:28)
[2023-08-05] MEDS: SENOKOT S TAB PO SCH ×2 (09:00→20:30)
[2023-08-05 14:12] VITALS: BP 127/58; TEMP 97.7; O2SAT 99
[2023-08-05] MEDS: ROSUVASTATIN 10 MG TAB (CRESTOR) PO SCH (20:28)
[2023-08-05] MEDS: cefTRIAXone SOD 2 GM in D5W MINI-BAG PLUS 50 ML IV SCH (20:29)
[2023-08-05 21:30] VITALS: BP 150/71; TEMP 97.9; O2SAT 99
[2023-08-06] MEDS: HEPARIN SOD (PORCINE) 5000UNITS/ML 1ML VIAL/SYRINGE SQ SCH ×3 (05:32→20:33)
[2023-08-06 06:00] VITALS: BP 144/74; TEMP 97.9; O2SAT 96
[2023-08-06] MEDS: INSULIN LISPRO (NovoLOG) PER UNIT SC SCH ×4 (08:24→20:43)
[2023-08-06] MEDS: ASPIRIN 325 MG TAB PO SCH (08:24)
[2023-08-06] MEDS: FUROSEMIDE 40 MG TAB PO SCH (08:25)
[2023-08-06] MEDS: PREGABALIN 50 MG CAP (LYRICA) PO SCH ×3 (08:25→20:35)
[2023-08-06] MEDS: CARVedilol 12.5 MG TAB PO SCH ×2 (08:26→20:34)
[2023-08-06] MEDS: SENOKOT S TAB PO SCH ×2 (09:00→20:43)
[2023-08-06 09:36] LABS: HEMATOCRIT 30.3 % (42.0-52.0); HEMOGLOBIN 9.5 g/dl (13.5-17.5); MEAN CORPUSCULAR HEMOGLOBIN 28.7 pg (27.0-33.0); MEAN CORPUSCULAR HGB CONC 31.4 g/dl (32.0-36.5); MEAN CORPUSCULAR VOLUME 91.5 fl (80.0-96.0); PLATELET COUNT, AUTOMATED 239 10^3/uL (150-450); RED BLOOD COUNT 3.31 10^6/uL (4.30-6.10); WHITE BLOOD COUNT 10.1 10^3/uL (4.0-10.0)
[2023-08-06 09:54] LABS: ATYPICAL LYMPH 3 % (0-5); LYMPHOCYTES 15 % (16-44); METAMYELOCYTES 3 % (0-0); MONOCYTES 16 % (0-5); MYELOCYTES 2 % (0-0); NEUTROPHILS 60 % (28-66)
[2023-08-06 09:55] LABS: ANISOCYTOSIS 1+; PLATELET ESTIMATE NORMAL (NORMAL); POIKILOCYTOSIS 1+; POLYCHROMASIA 1+; TEAR DROP CELLS 1+
[2023-08-06 09:58] LABS: BLOOD UREA NITROGEN 24 MG/DL (9-23); CALCIUM LEVEL 8.8 MG/DL (8.3-10.6); CARBON DIOXIDE LEVEL 29 MMOL/L (20-31); CHLORIDE LEVEL 101 MMOL/L (98-107); GLOMERULAR FILTRATION RATE > 60.0 (>42); GLUCOSE, FASTING 264 MG/DL (74-106); POTASSIUM SERUM 4.1 MMOL/L (3.5-5.1); SODIUM LEVEL 136 MMOL/L (136-145)
[2023-08-06 14:40] VITALS: BP 112/61; TEMP 97.5; O2SAT 99
[2023-08-06] MEDS: ROSUVASTATIN 10 MG TAB (CRESTOR) PO SCH (20:33)
[2023-08-06] MEDS: cefTRIAXone SOD 2 GM in D5W MINI-BAG PLUS 50 ML IV SCH (20:40)
[2023-08-06 22:00] VITALS: BP 133/63; TEMP 97.9; O2SAT 97
[2023-08-06] MEDS: RAMELTEON 8 MG TAB (ROZEREM) PO PRN (23:17)
[2023-08-07] MEDS: HEPARIN SOD (PORCINE) 5000UNITS/ML 1ML VIAL/SYRINGE SQ SCH ×3 (05:37→21:17)
[2023-08-07 05:56] LABS: MEAN CORPUSCULAR HEMOGLOBIN 28.3 pg (27.0-33.0); MEAN CORPUSCULAR VOLUME 91.2 fl (80.0-96.0); PLATELET COUNT, AUTOMATED 224 10^3/uL (150-450); RED BLOOD COUNT 3.18 10^6/uL (4.30-6.10); WHITE BLOOD COUNT 10.9 10^3/uL (4.0-10.0)
[2023-08-07 06:00] VITALS: BP 131/64; TEMP 97.7; O2SAT 97
[2023-08-07 06:20] LABS: BLOOD UREA NITROGEN 26 MG/DL (9-23); CALCIUM LEVEL 8.8 MG/DL (8.3-10.6); CARBON DIOXIDE LEVEL 29 MMOL/L (20-31); CHLORIDE LEVEL 104 MMOL/L (98-107); GLOMERULAR FILTRATION RATE > 60.0 (>42); GLUCOSE, FASTING 106 MG/DL (74-106); POTASSIUM SERUM 3.9 MMOL/L (3.5-5.1); SODIUM LEVEL 141 MMOL/L (136-145)
[2023-08-07 06:43] LABS: LYMPHOCYTES 11 % (16-44); MONOCYTES 25 % (0-5); NEUTROPHILS 63 % (28-66); PLATELET ESTIMATE NORMAL (NORMAL)
[2023-08-07 06:44] LABS: ANISOCYTOSIS 1+; OVALOCYTES 1+; POIKILOCYTOSIS 1+
[2023-08-07 06:45] LABS: POLYCHROMASIA 1+
[2023-08-07] MEDS: PREGABALIN 50 MG CAP (LYRICA) PO SCH ×3 (08:49→21:16)
[2023-08-07] MEDS: ASPIRIN 325 MG TAB PO SCH (08:49)
[2023-08-07] MEDS: FUROSEMIDE 40 MG TAB PO SCH (08:50)
[2023-08-07] MEDS: CARVedilol 12.5 MG TAB PO SCH ×2 (08:50→21:16)
[2023-08-07] MEDS: INSULIN LISPRO (NovoLOG) PER UNIT SC SCH ×4 (08:51→21:00)
[2023-08-07] MEDS: SENOKOT S TAB PO SCH ×2 (08:52→21:15)
[2023-08-07 14:00] VITALS: BP 115/63; TEMP 97.5; O2SAT 98
[2023-08-07] MEDS: cefTRIAXone SOD 2 GM in D5W MINI-BAG PLUS 50 ML IV SCH (21:12)
[2023-08-07 21:13] VITALS: BP 122/65; TEMP 97.9; O2SAT 97
[2023-08-07 21:14] VITALS: BP 122/65; O2SAT 92
[2023-08-07] MEDS: ROSUVASTATIN 10 MG TAB (CRESTOR) PO SCH (21:15)
[2023-08-08 05:55] LABS: HEMATOCRIT 28.3 % (42.0-52.0); HEMOGLOBIN 8.9 g/dl (13.5-17.5); MEAN CORPUSCULAR HEMOGLOBIN 28.6 pg (27.0-33.0); MEAN CORPUSCULAR HGB CONC 31.4 g/dl (32.0-36.5); PLATELET COUNT, AUTOMATED 206 10^3/uL (150-450); RED BLOOD COUNT 3.11 10^6/uL (4.30-6.10)
[2023-08-08 06:21] LABS: BLOOD UREA NITROGEN 28 MG/DL (9-23); CALCIUM LEVEL 8.6 MG/DL (8.3-10.6); CARBON DIOXIDE LEVEL 29 MMOL/L (20-31); CHLORIDE LEVEL 105 MMOL/L (98-107); CREATININE FOR GFR 0.64 MG/DL (0.70-1.30); GLOMERULAR FILTRATION RATE > 60.0 (>42); GLUCOSE, FASTING 114 MG/DL (74-106); POTASSIUM SERUM 4.1 MMOL/L (3.5-5.1); SODIUM LEVEL 141 MMOL/L (136-145)
[2023-08-08 06:39] VITALS: BP 143/73; TEMP 97.1; O2SAT 99
[2023-08-08] MEDS: HEPARIN SOD (PORCINE) 5000UNITS/ML 1ML VIAL/SYRINGE SQ SCH ×3 (06:45→20:53)
[2023-08-08 07:15] LABS: ATYPICAL LYMPH 2 % (0-5); GIANT PLATELETS 1+; LYMPHOCYTES 9 % (16-44); MONOCYTES 30 % (0-5); NEUTROPHILS 58 % (28-66); PLATELET ESTIMATE NORMAL (NORMAL)
[2023-08-08 07:16] LABS: TOXIC VACUOLATION 1+
[2023-08-08] MEDS: INSULIN LISPRO (NovoLOG) PER UNIT SC SCH ×4 (09:19→21:00)
[2023-08-08] MEDS: SENOKOT S TAB PO SCH ×2 (09:19→20:57)
[2023-08-08] MEDS: ASPIRIN 325 MG TAB PO SCH (09:19)
[2023-08-08] MEDS: PREGABALIN 50 MG CAP (LYRICA) PO SCH ×3 (09:19→20:54)
[2023-08-08] MEDS: CARVedilol 12.5 MG TAB PO SCH ×2 (09:20→20:57)
[2023-08-08] MEDS: FUROSEMIDE 40 MG TAB PO SCH (09:20)
[2023-08-08 14:00] VITALS: BP 138/78; TEMP 98.1; O2SAT 97
[2023-08-08] MEDS: cefTRIAXone SOD 2 GM in D5W MINI-BAG PLUS 50 ML IV SCH (20:51)
[2023-08-08] MEDS: RAMELTEON 8 MG TAB (ROZEREM) PO PRN (20:54)
[2023-08-08] MEDS: ACETAMINOPHEN TAB 650MG DOSE (2X325MG) PO PRN (20:55)
[2023-08-08] MEDS: ROSUVASTATIN 10 MG TAB (CRESTOR) PO SCH (20:56)
[2023-08-08 21:06] VITALS: BP 137/67
[2023-08-08 21:10] VITALS: TEMP 97.9; O2SAT 98
[2023-08-09] VITALS (10 sets, daily range): BP systolic 117–148; BP diastolic 61–81; TEMP 97.4–98.1; O2SAT 91–99
[2023-08-09] MEDS: HEPARIN SOD (PORCINE) 5000UNITS/ML 1ML VIAL/SYRINGE SQ SCH ×3 (05:17→21:33)
[2023-08-09 06:05] LABS: HEMATOCRIT 28.5 % (42.0-52.0); HEMOGLOBIN 8.8 g/dl (13.5-17.5); MEAN CORPUSCULAR HEMOGLOBIN 28.3 pg (27.0-33.0); MEAN CORPUSCULAR HGB CONC 30.9 g/dl (32.0-36.5); MEAN CORPUSCULAR VOLUME 91.6 fl (80.0-96.0); PLATELET COUNT, AUTOMATED 200 10^3/uL (150-450); RED BLOOD COUNT 3.11 10^6/uL (4.30-6.10); WHITE BLOOD COUNT 10.7 10^3/uL (4.0-10.0)
[2023-08-09 06:33] LABS: BLOOD UREA NITROGEN 28 MG/DL (9-23); CALCIUM LEVEL 8.6 MG/DL (8.3-10.6); CARBON DIOXIDE LEVEL 31 MMOL/L (20-31); CHLORIDE LEVEL 104 MMOL/L (98-107); CREATININE FOR GFR 0.61 MG/DL (0.70-1.30); GLOMERULAR FILTRATION RATE > 60.0 (>42); GLUCOSE, FASTING 113 MG/DL (74-106); POTASSIUM SERUM 4.2 MMOL/L (3.5-5.1); SODIUM LEVEL 140 MMOL/L (136-145)
[2023-08-09 06:59] LABS: ATYPICAL LYMPH 1 % (0-5); BASOPHILS 1 % (0-1); LYMPHOCYTES 10 % (16-44); METAMYELOCYTES 3 % (0-0); MONOCYTES 11 % (0-5); NEUTROPHILS 72 % (28-66)
[2023-08-09 07:00] LABS: ANISOCYTOSIS 1+; PLATELET ESTIMATE NORMAL (NORMAL)
[2023-08-09 07:01] LABS: OVALOCYTES 1+; POIKILOCYTOSIS 1+
[2023-08-09] MEDS: INSULIN LISPRO (NovoLOG) PER UNIT SC SCH ×4 (07:30→21:00)
[2023-08-09] MEDS: SENOKOT S TAB PO SCH ×2 (09:00→21:33)
[2023-08-09] MEDS: ASPIRIN 325 MG TAB PO SCH (09:00)
[2023-08-09] MEDS: FUROSEMIDE 40 MG TAB PO SCH (09:12)
[2023-08-09] MEDS: PREGABALIN 50 MG CAP (LYRICA) PO SCH ×3 (09:12→21:33)
[2023-08-09] MEDS: CARVedilol 12.5 MG TAB PO SCH ×2 (09:13→21:33)
[2023-08-09] MEDS ORDERED: ONDANSETRON 4MG 2ML VIAL As Ordered ONE (10:55)
[2023-08-09] MEDS ORDERED: LIDOCAINE 2% 100MG/5ML SDV (FOR ANES.) As Ordered ONE (10:55)
[2023-08-09] MEDS ORDERED: SUGAMMADEX SODIUM 500 MG/5 ML VIAL (BRIDION) As Ordered ONE (10:55)
[2023-08-09] MEDS ORDERED: ROCURONIUM BROMIDE 50MG/5ML VIAL As Ordered ONE (10:55)
[2023-08-09] MEDS ORDERED: propofoL 200 MG/20 ML VIAL As Ordered ONE (10:55)
[2023-08-09] MEDS ORDERED: MIDAZOLAM INJ 2MG/2ML VIAL As Ordered ONE (11:36)
[2023-08-09] MEDS ORDERED: fentaNYL 100 MCG/2 ML INJECTION As Ordered ONE ×2 (11:36→13:11)
[2023-08-09] MEDS ORDERED: ceFAZolin 2 GM/D5W 50 ML IV BAG As Ordered ONE (13:15)
[2023-08-09] MEDS ORDERED: ACETAMINOPHEN 1000MG 100ML IV BAG As Ordered ONE (13:23)
[2023-08-09] MEDS ORDERED: ONDANSETRON 4MG 2ML VIAL IV PRN (15:00)
[2023-08-09] MEDS ORDERED: MORPHINE 2 MG/ML 1ML VIAL IV PRN (15:00)
[2023-08-09] MEDS ORDERED: fentaNYL 100 MCG/2 ML INJECTION IV PRN (15:00)
[2023-08-09] MEDS ORDERED: oxyCODONE 5MG TAB PO PRN (15:00)
[2023-08-09] MEDS: ACETAMINOPHEN TAB 650MG DOSE (2X325MG) PO PRN (18:00)
[2023-08-09] MEDS: cefTRIAXone SOD 2 GM in D5W MINI-BAG PLUS 50 ML IV SCH (21:29)
[2023-08-09] MEDS: HYDROMORPHONE HCL 0.5 MG/ 0.5 ML SYRINGE IV PRN (21:32)
[2023-08-09] MEDS: ROSUVASTATIN 10 MG TAB (CRESTOR) PO SCH (21:33)
[2023-08-10] VITALS: BP 145/76; TEMP 97.7; O2SAT 97
[2023-08-10] MEDS: HYDROMORPHONE HCL 0.5 MG/ 0.5 ML SYRINGE IV PRN ×6 (01:19→20:27)
[2023-08-10] MEDS: HEPARIN SOD (PORCINE) 5000UNITS/ML 1ML VIAL/SYRINGE SQ SCH ×4 (03:58→21:50)
[2023-08-10 04:00] VITALS: BP 158/83; TEMP 98.1; O2SAT 97
[2023-08-10 07:50] LABS: BASO % 0.1 % (0.0-1.0); EOS % 0.2 % (0.0-3.0); HEMATOCRIT 30.8 % (42.0-52.0); HEMOGLOBIN 9.8 g/dl (13.5-17.5); LYMPH # 0.8 10^3/uL (1.5-5.0); LYMPH % 5.6 % (24.0-44.0); MEAN CORPUSCULAR HEMOGLOBIN 28.9 pg (27.0-33.0); MEAN CORPUSCULAR HGB CONC 31.8 g/dl (32.0-36.5); MEAN CORPUSCULAR VOLUME 90.9 fl (80.0-96.0); MONO % 28.4 % (2.0-8.0); NEUTROPHILS # 8.7 10^3/uL (1.5-8.5); NEUTROPHILS % 61.3 % (36.0-66.0); PLATELET COUNT, AUTOMATED 192 10^3/uL (150-450); RED BLOOD COUNT 3.39 10^6/uL (4.30-6.10); WHITE BLOOD COUNT 14.1 10^3/uL (4.0-10.0)
[2023-08-10 08:00] VITALS: BP 160/62; TEMP 98.6; O2SAT 96
[2023-08-10 08:07] LABS: BLOOD UREA NITROGEN 17 MG/DL (9-23); CALCIUM LEVEL 7.8 MG/DL (8.3-10.6); CARBON DIOXIDE LEVEL 27 MMOL/L (20-31); CHLORIDE LEVEL 102 MMOL/L (98-107); CREATININE FOR GFR 0.54 MG/DL (0.70-1.30); GLOMERULAR FILTRATION RATE > 60.0 (>42); GLUCOSE, FASTING 112 MG/DL (74-106); SODIUM LEVEL 137 MMOL/L (136-145)
[2023-08-10] MEDS: INSULIN LISPRO (NovoLOG) PER UNIT SC SCH ×4 (08:38→21:00)
[2023-08-10] MEDS: SENOKOT S TAB PO SCH ×2 (09:00→21:00)
[2023-08-10] MEDS ORDERED: FLUZONE HIGH DOSE(65YR UP)QUAD/PF 240MCG/0.7ML SYRINGE IM.IMMUN ONE (09:00)
[2023-08-10] MEDS: PREGABALIN 50 MG CAP (LYRICA) PO SCH ×3 (09:35→21:50)
[2023-08-10] MEDS: FUROSEMIDE 40 MG TAB PO SCH (09:35)
[2023-08-10] MEDS: ASPIRIN 325 MG TAB PO SCH (09:36)
[2023-08-10] MEDS: CARVedilol 12.5 MG TAB PO SCH ×2 (09:38→21:50)
[2023-08-10 12:00] VITALS: BP 142/87; TEMP 99.7; O2SAT 96
[2023-08-10 16:00] VITALS: BP 132/63; TEMP 98.9; O2SAT 95
[2023-08-10] MEDS: NS 1,000 ML IV SCH (17:30)
[2023-08-10 20:00] VITALS: BP 165/78; TEMP 100.6; O2SAT 96
[2023-08-10] MEDS: cefTRIAXone SOD 2 GM in D5W MINI-BAG PLUS 50 ML IV SCH (20:16)
[2023-08-10] MEDS: ROSUVASTATIN 10 MG TAB (CRESTOR) PO SCH (21:50)
[2023-08-11] VITALS: BP 137/70; TEMP 99.5; O2SAT 97
[2023-08-11] MEDS: guaiFENesin ER TABLET 600 MG TAB PO SCH ×3 (00:45→20:44)
[2023-08-11] MEDS: DOXYCYCLINE HYCLATE 100MG TABLET PO SCH ×2 (00:45→08:28)
[2023-08-11 04:00] VITALS: BP 123/58; TEMP 99.3; O2SAT 96
[2023-08-11] MEDS: HEPARIN SOD (PORCINE) 5000UNITS/ML 1ML VIAL/SYRINGE SQ SCH ×3 (06:35→22:00)
[2023-08-11 06:45] LABS: BASO % 0.1 % (0.0-1.0); EOS % 0.1 % (0.0-3.0); HEMATOCRIT 27.7 % (42.0-52.0); HEMOGLOBIN 8.9 g/dl (13.5-17.5); LYMPH # 0.9 10^3/uL (1.5-5.0); LYMPH % 5.7 % (24.0-44.0); MEAN CORPUSCULAR HEMOGLOBIN 28.8 pg (27.0-33.0); MEAN CORPUSCULAR HGB CONC 32.1 g/dl (32.0-36.5); MEAN CORPUSCULAR VOLUME 89.6 fl (80.0-96.0); MONO % 38.1 % (2.0-8.0); NEUTROPHILS # 8.3 10^3/uL (1.5-8.5); NEUTROPHILS % 54.1 % (36.0-66.0); PLATELET COUNT, AUTOMATED 166 10^3/uL (150-450); RED BLOOD COUNT 3.09 10^6/uL (4.30-6.10); WHITE BLOOD COUNT 15.3 10^3/uL (4.0-10.0)
[2023-08-11 07:30] LABS: MONO # 5.8 10^3/uL (0.0-0.8)
[2023-08-11 08:01] VITALS: BP 132/64; TEMP 98.1; O2SAT 96
[2023-08-11] MEDS: INSULIN LISPRO (NovoLOG) PER UNIT SC SCH ×4 (08:28→20:45)
[2023-08-11] MEDS: SENOKOT S TAB PO SCH (08:28)
[2023-08-11] MEDS: ASPIRIN 325 MG TAB PO SCH (08:28)
[2023-08-11] MEDS: PREGABALIN 50 MG CAP (LYRICA) PO SCH ×3 (08:28→20:45)
[2023-08-11] MEDS: CARVedilol 12.5 MG TAB PO SCH ×2 (08:29→20:45)
[2023-08-11] MEDS: FUROSEMIDE 40 MG TAB PO SCH (08:29)
[2023-08-11 08:54] LABS: BLOOD UREA NITROGEN 18 MG/DL (9-23); CALCIUM LEVEL 7.7 MG/DL (8.3-10.6); CARBON DIOXIDE LEVEL 25 MMOL/L (20-31); CHLORIDE LEVEL 105 MMOL/L (98-107); CREATININE FOR GFR 0.62 MG/DL (0.70-1.30); GLOMERULAR FILTRATION RATE > 60.0 (>42); GLUCOSE, FASTING 126 MG/DL (74-106); POTASSIUM SERUM 3.4 MMOL/L (3.5-5.1); SODIUM LEVEL 138 MMOL/L (136-145)
[2023-08-11 11:09] LABS: PROCALCITONIN 0.16 ng/ml
[2023-08-11] MEDS: NS 1,000 ML IV SCH (13:37)
[2023-08-11 16:02] VITALS: BP 137/65; TEMP 98.1; O2SAT 97
[2023-08-11] MEDS: LACTOBACILLUS ACIDOPHILUS CAP (BACID) PO SCH (18:33)
[2023-08-11 20:00] VITALS: BP 141/65; TEMP 99.3; O2SAT 93
[2023-08-11] MEDS: ROSUVASTATIN 10 MG TAB (CRESTOR) PO SCH (20:44)
[2023-08-12] VITALS: BP 127/82; TEMP 98; O2SAT 97
[2023-08-12] MEDS: HYDROMORPHONE HCL 0.5 MG/ 0.5 ML SYRINGE IV PRN (01:17)
[2023-08-12 04:00] VITALS: BP 132/81; TEMP 97.6; O2SAT 98
[2023-08-12] MEDS: HEPARIN SOD (PORCINE) 5000UNITS/ML 1ML VIAL/SYRINGE SQ SCH ×3 (06:25→21:50)
[2023-08-12 06:53] LABS: BASO % 0.1 % (0.0-1.0); EOS % 0.2 % (0.0-3.0); HEMATOCRIT 25.6 % (42.0-52.0); HEMOGLOBIN 8.1 g/dl (13.5-17.5); LYMPH # 0.9 10^3/uL (1.5-5.0); LYMPH % 7.4 % (24.0-44.0); MEAN CORPUSCULAR HEMOGLOBIN 28.7 pg (27.0-33.0); MEAN CORPUSCULAR HGB CONC 31.6 g/dl (32.0-36.5); MEAN CORPUSCULAR VOLUME 90.8 fl (80.0-96.0); MONO % 30.7 % (2.0-8.0); NEUTROPHILS # 7.1 10^3/uL (1.5-8.5); NEUTROPHILS % 59.7 % (36.0-66.0); PLATELET COUNT, AUTOMATED 164 10^3/uL (150-450); RED BLOOD COUNT 2.82 10^6/uL (4.30-6.10)
[2023-08-12 07:15] LABS: BLOOD UREA NITROGEN 22 MG/DL (9-23); CALCIUM LEVEL 7.8 MG/DL (8.3-10.6); CARBON DIOXIDE LEVEL 27 MMOL/L (20-31); CHLORIDE LEVEL 104 MMOL/L (98-107); CREATININE FOR GFR 0.53 MG/DL (0.70-1.30); GLOMERULAR FILTRATION RATE > 60.0 (>42); GLUCOSE, FASTING 127 MG/DL (74-106); POTASSIUM SERUM 3.6 MMOL/L (3.5-5.1); SODIUM LEVEL 137 MMOL/L (136-145)
[2023-08-12 07:49] LABS: MONO # 3.7 10^3/uL (0.0-0.8)
[2023-08-12 07:50] VITALS: BP 137/65; TEMP 98.3; O2SAT 98
[2023-08-12] MEDS: INSULIN LISPRO (NovoLOG) PER UNIT SC SCH ×4 (09:28→20:36)
[2023-08-12] MEDS: guaiFENesin ER TABLET 600 MG TAB PO SCH ×2 (09:29→20:43)
[2023-08-12] MEDS: ASPIRIN 325 MG TAB PO SCH (09:29)
[2023-08-12] MEDS: PREGABALIN 50 MG CAP (LYRICA) PO SCH ×3 (09:29→20:43)
[2023-08-12] MEDS: FUROSEMIDE 40 MG TAB PO SCH (09:29)
[2023-08-12] MEDS: CARVedilol 12.5 MG TAB PO SCH ×2 (09:29→20:43)
[2023-08-12] MEDS: NS 1,000 ML IV SCH (09:30)
[2023-08-12] MEDS: LACTOBACILLUS ACIDOPHILUS CAP (BACID) PO SCH ×2 (09:39→18:09)
[2023-08-12 11:35] VITALS: BP 115/58; TEMP 97.8; O2SAT 99
[2023-08-12 20:00] VITALS: BP 131/68; TEMP 98.7; O2SAT 98
[2023-08-12] MEDS: ROSUVASTATIN 10 MG TAB (CRESTOR) PO SCH (20:43)
[2023-08-13 04:00] VITALS: BP 135/68; TEMP 98.3; O2SAT 98
[2023-08-13] MEDS: HEPARIN SOD (PORCINE) 5000UNITS/ML 1ML VIAL/SYRINGE SQ SCH ×3 (06:12→22:24)
[2023-08-13 06:28] LABS: BASO % 0.1 % (0.0-1.0); EOS % 0.4 % (0.0-3.0); HEMATOCRIT 26.7 % (42.0-52.0); HEMOGLOBIN 8.2 g/dl (13.5-17.5); LYMPH # 0.7 10^3/uL (1.5-5.0); LYMPH % 9.4 % (24.0-44.0); MEAN CORPUSCULAR HEMOGLOBIN 28.1 pg (27.0-33.0); MEAN CORPUSCULAR HGB CONC 30.7 g/dl (32.0-36.5); MEAN CORPUSCULAR VOLUME 91.4 fl (80.0-96.0); MONO % 26.6 % (2.0-8.0); NEUTROPHILS # 4.9 10^3/uL (1.5-8.5); NEUTROPHILS % 62.1 % (36.0-66.0); PLATELET COUNT, AUTOMATED 181 10^3/uL (150-450); RED BLOOD COUNT 2.92 10^6/uL (4.30-6.10); WHITE BLOOD COUNT 7.9 10^3/uL (4.0-10.0)
[2023-08-13 06:53] LABS: BLOOD UREA NITROGEN 19 MG/DL (9-23); CALCIUM LEVEL 7.8 MG/DL (8.3-10.6); CARBON DIOXIDE LEVEL 26 MMOL/L (20-31); CHLORIDE LEVEL 107 MMOL/L (98-107); CREATININE FOR GFR 0.52 MG/DL (0.70-1.30); GLOMERULAR FILTRATION RATE > 60.0 (>42); GLUCOSE, FASTING 123 MG/DL (74-106); SODIUM LEVEL 140 MMOL/L (136-145)
[2023-08-13 07:19] LABS: MONO # 2.1 10^3/uL (0.0-0.8)
[2023-08-13] MEDS: INSULIN LISPRO (NovoLOG) PER UNIT SC SCH ×6 (07:30→20:38)
[2023-08-13 07:40] VITALS: BP 133/70; TEMP 97.1; O2SAT 99
[2023-08-13] MEDS: LACTOBACILLUS ACIDOPHILUS CAP (BACID) PO SCH ×2 (09:40→18:33)
[2023-08-13] MEDS: FUROSEMIDE 40 MG TAB PO SCH (09:40)
[2023-08-13] MEDS: guaiFENesin ER TABLET 600 MG TAB PO SCH ×2 (09:40→20:38)
[2023-08-13] MEDS: PREGABALIN 50 MG CAP (LYRICA) PO SCH ×3 (09:40→20:38)
[2023-08-13] MEDS: ASPIRIN 325 MG TAB PO SCH (09:40)
[2023-08-13] MEDS: CARVedilol 12.5 MG TAB PO SCH ×2 (09:40→20:38)
[2023-08-13 15:08] VITALS: BP 132/62; TEMP 97; O2SAT 99
[2023-08-13 19:57] VITALS: BP 145/70; TEMP 97.3; O2SAT 99
[2023-08-13] MEDS: ROSUVASTATIN 10 MG TAB (CRESTOR) PO SCH (20:38)
[2023-08-13] MEDS: RAMELTEON 8 MG TAB (ROZEREM) PO PRN (22:27)
[2023-08-13] MEDS: HYDROMORPHONE HCL 0.5 MG/ 0.5 ML SYRINGE IV PRN (22:56)
[2023-08-13 23:36] VITALS: BP 132/66; TEMP 98.1; O2SAT 96
[2023-08-14] MEDS: HEPARIN SOD (PORCINE) 5000UNITS/ML 1ML VIAL/SYRINGE SQ SCH ×3 (05:19→21:35)
[2023-08-14 06:00] VITALS: BP 124/64; TEMP 97.9; O2SAT 98
[2023-08-14] MEDS: INSULIN LISPRO (NovoLOG) PER UNIT SC SCH ×4 (07:13→21:00)
[2023-08-14] MEDS: ASPIRIN 325 MG TAB PO SCH (09:16)
[2023-08-14] MEDS: LACTOBACILLUS ACIDOPHILUS CAP (BACID) PO SCH ×2 (09:17→17:50)
[2023-08-14] MEDS: CARVedilol 12.5 MG TAB PO SCH ×2 (09:17→21:34)
[2023-08-14] MEDS: PREGABALIN 50 MG CAP (LYRICA) PO SCH ×3 (09:17→21:33)
[2023-08-14] MEDS: guaiFENesin ER TABLET 600 MG TAB PO SCH ×2 (09:17→21:33)
[2023-08-14] MEDS: FUROSEMIDE 40 MG TAB PO SCH (09:18)
[2023-08-14] MEDS: HYDROMORPHONE HCL 0.5 MG/ 0.5 ML SYRINGE IV PRN (10:15)
[2023-08-14 14:00] VITALS: BP 124/67; TEMP 97.5; O2SAT 97
[2023-08-14] MEDS ORDERED: PERCOCET 5MG/325MG TAB PO PRN (17:55)
[2023-08-14 20:30] VITALS: BP 145/67; TEMP 97.7; O2SAT 98
[2023-08-14] MEDS: ROSUVASTATIN 10 MG TAB (CRESTOR) PO SCH (21:33)
[2023-08-14] MEDS: PERCOCET 5MG/325MG TAB PO PRN (23:54)
[2023-08-15 06:00] VITALS: BP 132/77; TEMP 97.7; O2SAT 97
[2023-08-15] MEDS: HEPARIN SOD (PORCINE) 5000UNITS/ML 1ML VIAL/SYRINGE SQ SCH ×3 (06:08→21:12)
[2023-08-15] MEDS: INSULIN LISPRO (NovoLOG) PER UNIT SC SCH ×4 (07:07→20:57)
[2023-08-15] MEDS: guaiFENesin ER TABLET 600 MG TAB PO SCH ×2 (08:45→21:11)
[2023-08-15] MEDS: ASPIRIN 325 MG TAB PO SCH (08:45)
[2023-08-15] MEDS: FUROSEMIDE 40 MG TAB PO SCH (08:46)
[2023-08-15] MEDS: PREGABALIN 50 MG CAP (LYRICA) PO SCH ×3 (08:46→21:11)
[2023-08-15] MEDS: LACTOBACILLUS ACIDOPHILUS CAP (BACID) PO SCH ×2 (08:46→17:00)
[2023-08-15] MEDS: CARVedilol 12.5 MG TAB PO SCH ×2 (08:46→21:12)
[2023-08-15 14:00] VITALS: BP 119/59; TEMP 98.1; O2SAT 98
[2023-08-15] MEDS: ROSUVASTATIN 10 MG TAB (CRESTOR) PO SCH (21:11)
[2023-08-16] MEDS: HEPARIN SOD (PORCINE) 5000UNITS/ML 1ML VIAL/SYRINGE SQ SCH ×3 (05:34→21:47)
[2023-08-16 06:00] VITALS: BP 136/74; TEMP 97.7; O2SAT 97
[2023-08-16] MEDS: INSULIN LISPRO (NovoLOG) PER UNIT SC SCH ×4 (07:27→21:00)
[2023-08-16] MEDS: PREGABALIN 50 MG CAP (LYRICA) PO SCH ×3 (08:37→21:46)
[2023-08-16] MEDS: FUROSEMIDE 40 MG TAB PO SCH (08:37)
[2023-08-16] MEDS: LACTOBACILLUS ACIDOPHILUS CAP (BACID) PO SCH ×2 (08:37→17:19)
[2023-08-16] MEDS: guaiFENesin ER TABLET 600 MG TAB PO SCH ×2 (08:37→21:46)
[2023-08-16] MEDS: CARVedilol 12.5 MG TAB PO SCH ×2 (08:38→21:47)
[2023-08-16] MEDS: ASPIRIN 325 MG TAB PO SCH (08:38)
[2023-08-16] MEDS: ROSUVASTATIN 10 MG TAB (CRESTOR) PO SCH (21:46)
[2023-08-16] MEDS: PERCOCET 5MG/325MG TAB PO PRN (22:41)
[2023-08-17 05:34] VITALS: BP 112/59; TEMP 97.7; O2SAT 97
[2023-08-17] MEDS: HEPARIN SOD (PORCINE) 5000UNITS/ML 1ML VIAL/SYRINGE SQ SCH ×3 (05:42→21:05)
[2023-08-17] MEDS: INSULIN LISPRO (NovoLOG) PER UNIT SC SCH ×4 (08:18→20:59)
[2023-08-17] MEDS: LACTOBACILLUS ACIDOPHILUS CAP (BACID) PO SCH ×2 (08:18→17:21)
[2023-08-17] MEDS: PREGABALIN 50 MG CAP (LYRICA) PO SCH ×3 (08:19→21:07)
[2023-08-17] MEDS: guaiFENesin ER TABLET 600 MG TAB PO SCH ×2 (08:19→21:03)
[2023-08-17] MEDS: ASPIRIN 325 MG TAB PO SCH (08:19)
[2023-08-17] MEDS: FUROSEMIDE 40 MG TAB PO SCH (08:19)
[2023-08-17] MEDS: CARVedilol 12.5 MG TAB PO SCH ×2 (08:21→21:10)
[2023-08-17 20:00] VITALS: BP 125/61; TEMP 98.1; O2SAT 97
[2023-08-17] MEDS: RAMELTEON 8 MG TAB (ROZEREM) PO PRN (21:03)
[2023-08-17] MEDS: ROSUVASTATIN 10 MG TAB (CRESTOR) PO SCH (21:03)
[2023-08-17] MEDS: PERCOCET 5MG/325MG TAB PO PRN (21:04)
[2023-08-18] MEDS: HEPARIN SOD (PORCINE) 5000UNITS/ML 1ML VIAL/SYRINGE SQ SCH ×2 (05:44→14:00)
[2023-08-18 06:00] VITALS: BP 133/69; TEMP 98.6; O2SAT 96
[2023-08-18] MEDS: INSULIN LISPRO (NovoLOG) PER UNIT SC SCH ×2 (07:30→12:00)
[2023-08-18] MEDS ORDERED: LISI5TAB11 PO (10:21)
[2023-08-18] MEDS: ASPIRIN 325 MG TAB PO SCH (11:08)
[2023-08-18] MEDS: LACTOBACILLUS ACIDOPHILUS CAP (BACID) PO SCH (11:09)
[2023-08-18] MEDS: guaiFENesin ER TABLET 600 MG TAB PO SCH (11:09)
[2023-08-18] MEDS: FUROSEMIDE 40 MG TAB PO SCH (11:09)
[2023-08-18] MEDS: PREGABALIN 50 MG CAP (LYRICA) PO SCH (11:11)
[2023-08-18 11:15] VITALS: BP 130/72
[2023-08-18] MEDS: CARVedilol 12.5 MG TAB PO SCH (11:15)
[2023-08-18 14:00] VITALS: BP 120/60; TEMP 98.1; O2SAT 98
== END 2023-08-18 15:45 | disposition home health service (06) | DRG 617 ==
LOC: M PCU 21:16 → M MS5PR 08-04 11:08 → M PCU 08-09 16:33 → M MSPAV 08-13 23:32
PROVIDERS: ADMIT Internal Medicine; ATTEND Internal Medicine
PROC: 0QD Lower Bones, Extraction (ICD-10-PCS; 2023-07-30)
PROC: 30233N1 Transfusion of Nonautologous Red Blood Cells into Peripheral Vein, Percutaneous Approach (ICD-10-PCS; 2023-08-01)
PROC: B246ZZZ Ultrasonography of Right and Left Heart (ICD-10-PCS; 2023-08-03)
PROC: 0Y6H0Z3 Detachment at Right Lower Leg, Low, Open Approach (ICD-10-PCS; principal; 2023-08-09 10:55)
DX: E11.69 Type 2 diabetes mellitus with other specified complication (principal); M00.871 Arthritis due to other bacteria, right ankle and foot; I69.351 Hemiplegia and hemiparesis following cerebral infarction affecting right dominant side; M86.671 Other chronic osteomyelitis, right ankle and foot; J98.11 Atelectasis; L97.316 Non-pressure chronic ulcer of right ankle with bone involvement without evidence of necrosis; I10 Essential (primary) hypertension; E78.00 Pure hypercholesterolemia, unspecified; E11.42 Type 2 diabetes mellitus with diabetic polyneuropathy; E11.610 Type 2 diabetes mellitus with diabetic neuropathic arthropathy; M14.671 Charcot's joint, right ankle and foot; M14.672 Charcot's joint, left ankle and foot; D63.8 Anemia in other chronic diseases classified elsewhere; E11.51 Type 2 diabetes mellitus with diabetic peripheral angiopathy without gangrene; F32.A Depression, unspecified; I25.10 Atherosclerotic heart disease of native coronary artery without angina pectoris; M21.071 Valgus deformity, not elsewhere classified, right ankle; R50.82 Postprocedural fever; G51.0 Bell's palsy; E11.622 Type 2 diabetes mellitus with other skin ulcer; E11.621 Type 2 diabetes mellitus with foot ulcer; E78.5 Hyperlipidemia, unspecified; D50.0 Iron deficiency anemia secondary to blood loss (chronic); Z85.828 Personal history of other malignant neoplasm of skin; Z86.16 Personal history of COVID-19; Z79.82 Long term (current) use of aspirin; Z95.1 Presence of aortocoronary bypass graft; Z90.49 Acquired absence of other specified parts of digestive tract; Z79.84 Long term (current) use of oral hypoglycemic drugs; Z79.899 Other long term (current) drug therapy; Z79.891 Long term (current) use of opiate analgesic; Z89.422 Acquired absence of other left toe(s); Z87.891 Personal history of nicotine dependence

== ENCOUNTER → 2023-09-01 | Outpatient (REF) | payer MEDICARE, MEDICAID ==
[~2023-09-01] MED LIST changes: +LISI5TAB11 PO; +NALO25TA PO
[2023-09-01 18:23] LABS: BASO % 0.1 % (0.0-1.0); EOS # 0.1 10^3/uL (0.0-0.5); EOS % 0.8 % (0.0-3.0); HEMATOCRIT 31.8 % (42.0-52.0); HEMOGLOBIN 9.8 g/dl (13.5-17.5); LYMPH # 0.9 10^3/uL (1.5-5.0); LYMPH % 10.3 % (24.0-44.0); MEAN CORPUSCULAR HEMOGLOBIN 28.5 pg (27.0-33.0); MEAN CORPUSCULAR HGB CONC 30.8 g/dl (32.0-36.5); MEAN CORPUSCULAR VOLUME 92.4 fl (80.0-96.0); MONO % 38.2 % (2.0-8.0); NEUTROPHILS % 46.6 % (36.0-66.0); PLATELET COUNT, AUTOMATED 239 10^3/uL (150-450); RED BLOOD COUNT 3.44 10^6/uL (4.30-6.10); WHITE BLOOD COUNT 8.7 10^3/uL (4.0-10.0)
[2023-09-01 18:50] LABS: ALBUMIN 3.1 G/DL (3.2-5.2); ALKALINE PHOSPHATASE 103 U/L (46-116); ALT/SGPT 9 U/L (7.0-40); AST/SGOT 12 U/L (<34); BILIRUBIN,TOTAL 0.7 MG/DL (0.3-1.2); BLOOD UREA NITROGEN 18 MG/DL (9-23); CALCIUM LEVEL 8.8 MG/DL (8.3-10.6); CARBON DIOXIDE LEVEL 28 MMOL/L (20-31); CHLORIDE LEVEL 102 MMOL/L (98-107); GLOMERULAR FILTRATION RATE > 60.0 (>42); GLUCOSE, FASTING 90 MG/DL (74-106); POTASSIUM SERUM 4.5 MMOL/L (3.5-5.1); SODIUM LEVEL 136 MMOL/L (136-145); TOTAL PROTEIN 7.4 G/DL (5.7-8.2)
[2023-09-01 18:56] LABS: MONO # 3.3 10^3/uL (0.0-0.8)
== END ==
LOC: M SFHCCLAY 10:44
PROVIDERS: ATTEND Physician Assistant
DX: R59.9 Enlarged lymph nodes, unspecified (principal)

== ENCOUNTER → 2023-09-18 | Outpatient (REF) | payer MEDICARE, MEDICAID | LOC: M LAB REF 17:05 | PROVIDERS: ATTEND Otolaryngology | DX: R22.1 Localized swelling, mass and lump, neck (principal) ==

== ENCOUNTER → 2023-10-06 | Outpatient (CLI) | payer MEDICARE, MEDICAID ==
[~2023-10-06] MED LIST changes: +ISOVUE-370 76% 100ML VIAL ONE
== END ==
LOC: M PLAIMG 13:22
PROVIDERS: ATTEND Otolaryngology
DX: R22.1 Localized swelling, mass and lump, neck (principal)
CPT/HCPCS: 70491; Q9967

== ENCOUNTER 2023-10-12 11:27 | Outpatient (RCR) | payer MEDICARE, MEDICAID ==
[~2023-10-12 11:27] MED LIST changes: -ASPI-161 PO; +ASPI-615 PO; -ISOVUE-370 76% 100ML VIAL ONE
== END 2023-11-09 ==
LOC: M PT 11:27
PROVIDERS: ATTEND Family Medicine
DX: Z89.511 Acquired absence of right leg below knee (principal); E11.610 Type 2 diabetes mellitus with diabetic neuropathic arthropathy

== ENCOUNTER → 2023-11-06 | Outpatient (CLI) | payer MEDICARE, MEDICAID | LOC: M PLARAD 13:41 | PROVIDERS: ATTEND Otolaryngology | DX: C79.89 Secondary malignant neoplasm of other specified sites (principal); Z53.8 Procedure and treatment not carried out for other reasons ==

== ENCOUNTER → 2023-11-15 | Outpatient (CLI) | payer MEDICARE, MEDICAID | LOC: M ONCR 15:12 | PROVIDERS: ATTEND General Practice | DX: C79.89 Secondary malignant neoplasm of other specified sites (principal); C00.0 Malignant neoplasm of external upper lip; Z71.2 Person consulting for explanation of examination or test findings; Z79.82 Long term (current) use of aspirin; Z79.84 Long term (current) use of oral hypoglycemic drugs; Z79.899 Other long term (current) drug therapy; Z98.890 Other specified postprocedural states | CPT/HCPCS: 31575; G0463 ==

== ENCOUNTER 2023-11-22 13:31 | Outpatient (RCR) | payer MEDICARE, MEDICAID ==
[2023-11-23] MEDS ORDERED: FENT12DI8 TOP (11:51)
[2023-11-23] MEDS ORDERED: MIRA3350 PO (11:51)
[2023-11-23] MEDS ORDERED: DULC10SU2 PR (11:51)
[2023-11-23] MEDS ORDERED: SENN-186 PO (11:51)
[2023-11-23] MEDS ORDERED: OXYC-517 PO (11:51)
[2023-12-11] MEDS ORDERED: AMOX875T2 PO (13:46)
[2023-12-11] MEDS ORDERED: SENN-186 PO (18:07)
[2023-12-11] MEDS ORDERED: FENT12DI12 TD (18:07)
[2023-12-11] MEDS ORDERED: OXYC-517 PO (18:07)
[2023-12-11] MEDS ORDERED: AMLO1TAB25 PO (18:07)
== END 2023-12-10 ==
LOC: M ONCR 13:31
PROVIDERS: ATTEND General Practice
DX: Z51.0 Encounter for antineoplastic radiation therapy (principal); C00.0 Malignant neoplasm of external upper lip

== ENCOUNTER → 2023-11-23 | Outpatient (CLI) | payer MEDICARE, MEDICAID ==
[~2023-11-23] MED LIST changes: +DULC10SU2 PR; +FENT12DI8 TOP; +MIRA3350 PO; +OXYC-517 PO; +SENN-186 PO
[2023-11-23 10:24] VITALS: BP 98/59; O2SAT 95
== END ==
LOC: M PAL 10:11
PROVIDERS: ATTEND Nurse Practitioner Adult Health
DX: G89.3 Neoplasm related pain (acute) (chronic) (principal); S11.90XA Unspecified open wound of unspecified part of neck, initial encounter; E11.610 Type 2 diabetes mellitus with diabetic neuropathic arthropathy; C00.0 Malignant neoplasm of external upper lip; C79.89 Secondary malignant neoplasm of other specified sites; Z89.511 Acquired absence of right leg below knee; K59.00 Constipation, unspecified; Z51.5 Encounter for palliative care; Z79.891 Long term (current) use of opiate analgesic; Z79.82 Long term (current) use of aspirin; Z79.84 Long term (current) use of oral hypoglycemic drugs; Z79.899 Other long term (current) drug therapy; Z98.890 Other specified postprocedural states

== ENCOUNTER 2023-12-11 11:46 | Inpatient (IN) | payer MEDICARE, MEDICAID ==
[~2023-12-11] VITALS: Ht 182.9 cm; Wt 90.1 kg
[2023-12-11] MEDS ORDERED: AMOX875T2 PO (13:46)
[2023-12-11 13:48] LABS: VENOUS BASE EXCESS 3.6 (-2.0-2.0); VENOUS HCO3 29.9 MMOL/L (23.0-27.0); VENOUS O2 SATURATION 41.7 % (60.0-80.0); VENOUS PARTIAL PRESSURE CO2 54.4 mmHg (38.0-50.0); VENOUS PARTIAL PRESSURE O2 24.3 mmHg (30.0-50.0); VENOUS PH 7.358 UNITS (7.330-7.430); VENOUS STANDARD HCO3 26.6 MMOL/L; VENOUS TOTAL CO2 31.6 MMOL/L (24.0-28.0)
[2023-12-11 14:10] LABS: BASO % 0.1 % (0.0-1.0); EOS # 0.1 10^3/uL (0.0-0.5); EOS % 0.3 % (0.0-3.0); HEMATOCRIT 29.6 % (42.0-52.0); HEMOGLOBIN 9.4 g/dl (13.5-17.5); LYMPH # 1.1 10^3/uL (1.5-5.0); LYMPH % 7.2 % (24.0-44.0); MEAN CORPUSCULAR HEMOGLOBIN 28.1 pg (27.0-33.0); MEAN CORPUSCULAR HGB CONC 31.8 g/dl (32.0-36.5); MEAN CORPUSCULAR VOLUME 88.4 fl (80.0-96.0); MONO % 23.4 % (2.0-8.0); NEUTROPHILS # 10.2 10^3/uL (1.5-8.5); NEUTROPHILS % 66.7 % (36.0-66.0); PLATELET COUNT, AUTOMATED 213 10^3/uL (150-450); RED BLOOD COUNT 3.35 10^6/uL (4.30-6.10); WHITE BLOOD COUNT 15.2 10^3/uL (4.0-10.0)
[2023-12-11 14:25] LABS: ALBUMIN 3.1 G/DL (3.2-5.2); ALKALINE PHOSPHATASE 87 U/L (46-116); ALT/SGPT 24 U/L (7.0-40); AST/SGOT 17 U/L (<34); BILIRUBIN,DIRECT 0.3 MG/DL (<0.4); BILIRUBIN,TOTAL 0.6 MG/DL (0.3-1.2); BLOOD UREA NITROGEN 15 MG/DL (9-23); CALCIUM LEVEL 11.2 MG/DL (8.3-10.6); CARBON DIOXIDE LEVEL 32 MMOL/L (20-31); CHLORIDE LEVEL 103 MMOL/L (98-107); CREATININE FOR GFR 0.76 MG/DL (0.70-1.30); GLOMERULAR FILTRATION RATE > 60.0 (>42); GLUCOSE, FASTING 112 MG/DL (74-106); POTASSIUM SERUM 3.6 MMOL/L (3.5-5.1); SODIUM LEVEL 139 MMOL/L (136-145); TOTAL PROTEIN 7.1 G/DL (5.7-8.2)
[2023-12-11 14:28] LABS: THYROID STIMULATING HORMONE 3.625 uIU/ML (0.55-4.78)
[2023-12-11 14:44] LABS: MONO # 3.6 10^3/uL (0.0-0.8)
[2023-12-11] MEDS: NS 1,000 ML IV SCH (15:20)
[2023-12-11] MEDS ORDERED: ISOVUE-370 76% 100ML VIAL As Ordered ONE (16:04)
[2023-12-11] MEDS ORDERED: AMLO1TAB25 PO (18:07)
[2023-12-11] MEDS ORDERED: OXYC-517 PO (18:07)
[2023-12-11] MEDS ORDERED: SENN-186 PO (18:07)
[2023-12-11] MEDS ORDERED: FENT12DI12 TD (18:07)
[2023-12-11] MEDS ORDERED: HOME MED LIST COMPLETE! XX SCH (18:10)
[2023-12-11 19:14] LABS: MAGNESIUM LEVEL 1.7 MG/DL (1.8-2.4)
[2023-12-12] MEDS ORDERED: D5W/0.9% SODIUM CHLORIDE 1,000 ML IV SCH (05:35)
[2023-12-12] MEDS ORDERED: GLUCAGON INJ 1MG VIAL SC PRN (06:00)
[2023-12-12] MEDS ORDERED: DEXTROSE 50% 50ML SYRINGE IV PRN (06:00)
[2023-12-12] MEDS ORDERED: GLUCOSE 4 GM CHEW PO PRN (06:00)
[2023-12-12] MEDS ORDERED: LOPERAMIDE 2 MG CAPLET PO PRN (07:00)
[2023-12-12] MEDS: INSULIN LISPRO (NovoLOG) PER UNIT SC SCH ×2 (07:30→20:01)
[2023-12-12] MEDS: LOPERAMIDE 2 MG CAPLET PO ONE (08:16)
[2023-12-12] MEDS: LR 1,000 ML IV SCH (08:45)
[2023-12-12 08:52] LABS: BASO % 0.1 % (0.0-1.0); EOS % 0.2 % (0.0-3.0); HEMATOCRIT 26.3 % (42.0-52.0); HEMOGLOBIN 8.5 g/dl (13.5-17.5); LYMPH # 0.9 10^3/uL (1.5-5.0); LYMPH % 6.6 % (24.0-44.0); MEAN CORPUSCULAR HEMOGLOBIN 28.5 pg (27.0-33.0); MEAN CORPUSCULAR HGB CONC 32.3 g/dl (32.0-36.5); MEAN CORPUSCULAR VOLUME 88.3 fl (80.0-96.0); MONO % 22.8 % (2.0-8.0); NEUTROPHILS # 9.4 10^3/uL (1.5-8.5); NEUTROPHILS % 67.8 % (36.0-66.0); PLATELET COUNT, AUTOMATED 202 10^3/uL (150-450); RED BLOOD COUNT 2.98 10^6/uL (4.30-6.10); WHITE BLOOD COUNT 13.9 10^3/uL (4.0-10.0)
[2023-12-12] MEDS ORDERED: CARVedilol 12.5 MG TAB PO SCH (09:00)
[2023-12-12 09:17] LABS: INR 1.14; PROTHROMBIN TIME 14.2 SECONDS (12.5-14.5)
[2023-12-12 09:20] LABS: IRON (FE) 29 UG/DL (65-175)
[2023-12-12 09:24] LABS: VITAMIN B12 LEVEL 509 PG/ML (211-911)
[2023-12-12 09:28] LABS: MONO # 3.2 10^3/uL (0.0-0.8); PROCALCITONIN 0.05 ng/ml
[2023-12-12 09:33] LABS: ALBUMIN 2.9 G/DL (3.2-5.2); ALKALINE PHOSPHATASE 84 U/L (46-116); ALT/SGPT 19 U/L (7.0-40); AST/SGOT 14 U/L (<34); BILIRUBIN,TOTAL 0.6 MG/DL (0.3-1.2); BLOOD UREA NITROGEN 10 MG/DL (9-23); CALCIUM LEVEL 10.1 MG/DL (8.3-10.6); CARBON DIOXIDE LEVEL 31 MMOL/L (20-31); CHLORIDE LEVEL 104 MMOL/L (98-107); CREATININE FOR GFR 0.65 MG/DL (0.70-1.30); GLOMERULAR FILTRATION RATE > 60.0 (>42); GLUCOSE, FASTING 90 MG/DL (74-106); MAGNESIUM LEVEL 1.6 MG/DL (1.8-2.4); POTASSIUM SERUM 2.8 MMOL/L (3.5-5.1); SODIUM LEVEL 140 MMOL/L (136-145); TOTAL PROTEIN 6.7 G/DL (5.7-8.2)
[2023-12-12 10:08] LABS: ERYTHROCYTE SEDIMENTATION RATE 57 mm/hr (0-20)
[2023-12-12] MEDS: MAG SULF 1GM/100ML (MAG RUN) 1 GM in IV 1 EA IV SCH (11:17)
[2023-12-12] MEDS: POTASSIUM CHLORIDE 10% LIQ 20MEQ/15ML UDC PO SCH (11:18)
[2023-12-12] MEDS: AUGMENTIN 875 MG TAB PO SCH (11:30)
[2023-12-12] MEDS: CARVedilol 12.5 MG TAB PO ONE (11:33)
[2023-12-12] MEDS: PREGABALIN 50 MG CAP (LYRICA) PO SCH (12:14)
[2023-12-12] MEDS: LACTOBACILLUS ACIDOPHILUS CAP (BACID) PO SCH (12:14)
[2023-12-12] MEDS: ROSUVASTATIN 10 MG TAB (CRESTOR) PO SCH (12:14)
[2023-12-12 14:57] LABS: ALBUMIN 2.6 G/DL (3.2-5.2); CALCIUM LEVEL 9.8 MG/DL (8.3-10.6); POTASSIUM SERUM 4.3 MMOL/L (3.5-5.1)
[2023-12-12 15:15] VITALS: BP 144/80; TEMP 97.3; O2SAT 100
[2023-12-12] MEDS: oxyCODONE 5MG TAB PO PRN (19:24)
[2023-12-12 20:47] VITALS: BP 136/63; TEMP 98.6; O2SAT 98
[2023-12-12] MEDS: CARVedilol 12.5 MG TAB PO SCH (20:52)
[2023-12-13] VITALS (9 sets, daily range): BP systolic 118–145; BP diastolic 55–69; TEMP 97.5–99.1; O2SAT 94–98
[2023-12-13 07:36] LABS: BASO % 0.1 % (0.0-1.0); EOS % 0.2 % (0.0-3.0); HEMATOCRIT 21.7 % (42.0-52.0); HEMOGLOBIN 7.2 g/dl (13.5-17.5); LYMPH # 1.1 10^3/uL (1.5-5.0); LYMPH % 9.3 % (24.0-44.0); MEAN CORPUSCULAR HEMOGLOBIN 29.3 pg (27.0-33.0); MEAN CORPUSCULAR HGB CONC 33.2 g/dl (32.0-36.5); MEAN CORPUSCULAR VOLUME 88.2 fl (80.0-96.0); MONO % 27.3 % (2.0-8.0); NEUTROPHILS # 7.2 10^3/uL (1.5-8.5); NEUTROPHILS % 60.9 % (36.0-66.0); PLATELET COUNT, AUTOMATED 165 10^3/uL (150-450); RED BLOOD COUNT 2.46 10^6/uL (4.30-6.10); WHITE BLOOD COUNT 11.8 10^3/uL (4.0-10.0)
[2023-12-13 07:53] LABS: BLOOD UREA NITROGEN 8 MG/DL (9-23); CALCIUM LEVEL 9.7 MG/DL (8.3-10.6); CARBON DIOXIDE LEVEL 27 MMOL/L (20-31); CHLORIDE LEVEL 105 MMOL/L (98-107); GLOMERULAR FILTRATION RATE > 60.0 (>42); GLUCOSE, FASTING 97 MG/DL (74-106); MAGNESIUM LEVEL 1.9 MG/DL (1.8-2.4); POTASSIUM SERUM 4.1 MMOL/L (3.5-5.1); SODIUM LEVEL 138 MMOL/L (136-145)
[2023-12-13 08:57] LABS: MONO # 3.2 10^3/uL (0.0-0.8)
[2023-12-13 23:20] LABS: HEMATOCRIT 25.1 % (42.0-52.0); HEMOGLOBIN 8.1 g/dl (13.5-17.5)
[2023-12-14 06:45] VITALS: BP 127/58; TEMP 97.9; O2SAT 95
[2023-12-14 07:22] LABS: BASO % 0.2 % (0.0-1.0); EOS % 0.2 % (0.0-3.0); HEMATOCRIT 27.6 % (42.0-52.0); HEMOGLOBIN 8.9 g/dl (13.5-17.5); LYMPH % 7.7 % (24.0-44.0); MEAN CORPUSCULAR HEMOGLOBIN 27.6 pg (27.0-33.0); MEAN CORPUSCULAR HGB CONC 32.2 g/dl (32.0-36.5); MEAN CORPUSCULAR VOLUME 85.4 fl (80.0-96.0); MONO % 31.8 % (2.0-8.0); NEUTROPHILS # 7.5 10^3/uL (1.5-8.5); NEUTROPHILS % 56.6 % (36.0-66.0); PLATELET COUNT, AUTOMATED 183 10^3/uL (150-450); RED BLOOD COUNT 3.23 10^6/uL (4.30-6.10); WHITE BLOOD COUNT 13.3 10^3/uL (4.0-10.0)
[2023-12-14 07:35] LABS: MONO # 4.2 10^3/uL (0.0-0.8)
[2023-12-14 07:56] LABS: BLOOD UREA NITROGEN 15 MG/DL (9-23); CALCIUM LEVEL 10.1 MG/DL (8.3-10.6); CARBON DIOXIDE LEVEL 28 MMOL/L (20-31); CHLORIDE LEVEL 104 MMOL/L (98-107); CREATININE FOR GFR 0.73 MG/DL (0.70-1.30); GLOMERULAR FILTRATION RATE > 60.0 (>42); GLUCOSE, FASTING 127 MG/DL (74-106); POTASSIUM SERUM 4.2 MMOL/L (3.5-5.1); SODIUM LEVEL 134 MMOL/L (136-145)
[2023-12-14 14:12] VITALS: BP 140/96; TEMP 98.5; O2SAT 97
[2023-12-14] MEDS: ACETAMINOPHEN TAB 650MG DOSE (2X325MG) PO PRN (14:12)
[2023-12-14 21:15] VITALS: BP 124/72; TEMP 98.2; O2SAT 97
[2023-12-15 05:59] VITALS: BP 142/64; TEMP 98.2; O2SAT 96
[2023-12-15 07:58] LABS: BASO % 0.2 % (0.0-1.0); EOS % 0.2 % (0.0-3.0); HEMATOCRIT 31.4 % (42.0-52.0); LYMPH % 5.6 % (24.0-44.0); MEAN CORPUSCULAR HEMOGLOBIN 27.8 pg (27.0-33.0); MEAN CORPUSCULAR HGB CONC 31.8 g/dl (32.0-36.5); MEAN CORPUSCULAR VOLUME 87.2 fl (80.0-96.0); MONO % 29.3 % (2.0-8.0); NEUTROPHILS # 11.1 10^3/uL (1.5-8.5); NEUTROPHILS % 60.7 % (36.0-66.0); PLATELET COUNT, AUTOMATED 228 10^3/uL (150-450); WHITE BLOOD COUNT 18.3 10^3/uL (4.0-10.0)
[2023-12-15 08:23] LABS: BLOOD UREA NITROGEN 20 MG/DL (9-23); CALCIUM LEVEL 10.5 MG/DL (8.3-10.6); CARBON DIOXIDE LEVEL 28 MMOL/L (20-31); CHLORIDE LEVEL 103 MMOL/L (98-107); CREATININE FOR GFR 0.69 MG/DL (0.70-1.30); GLOMERULAR FILTRATION RATE > 60.0 (>42); GLUCOSE, FASTING 115 MG/DL (74-106); POTASSIUM SERUM 4.1 MMOL/L (3.5-5.1); SODIUM LEVEL 135 MMOL/L (136-145)
[2023-12-15 08:35] LABS: MONO # 5.4 10^3/uL (0.0-0.8)
[2023-12-15 14:15] VITALS: BP 136/62; TEMP 98.5; O2SAT 96
[2023-12-15 20:13] VITALS: BP 152/70; TEMP 97.9; O2SAT 96
[2023-12-15] MEDS: traZODone 25MG PER 1/2 TABLET PO PRN (20:37)
[2023-12-16 06:43] VITALS: BP 138/74; TEMP 97.9; O2SAT 92
[2023-12-16 08:17] LABS: BASO % 0.1 % (0.0-1.0); EOS # 0.1 10^3/uL (0.0-0.5); EOS % 0.2 % (0.0-3.0); HEMATOCRIT 29.8 % (42.0-52.0); HEMOGLOBIN 9.5 g/dl (13.5-17.5); LYMPH # 2.2 10^3/uL (1.5-5.0); LYMPH % 10.3 % (24.0-44.0); MEAN CORPUSCULAR HEMOGLOBIN 27.8 pg (27.0-33.0); MEAN CORPUSCULAR HGB CONC 31.9 g/dl (32.0-36.5); MEAN CORPUSCULAR VOLUME 87.1 fl (80.0-96.0); MONO % 29.2 % (2.0-8.0); NEUTROPHILS # 12.3 10^3/uL (1.5-8.5); NEUTROPHILS % 57.6 % (36.0-66.0); PLATELET COUNT, AUTOMATED 237 10^3/uL (150-450); RED BLOOD COUNT 3.42 10^6/uL (4.30-6.10); WHITE BLOOD COUNT 21.4 10^3/uL (4.0-10.0)
[2023-12-16 08:39] LABS: BLOOD UREA NITROGEN 17 MG/DL (9-23); CALCIUM LEVEL 10.6 MG/DL (8.3-10.6); CARBON DIOXIDE LEVEL 29 MMOL/L (20-31); CHLORIDE LEVEL 100 MMOL/L (98-107); CREATININE FOR GFR 0.72 MG/DL (0.70-1.30); GLOMERULAR FILTRATION RATE > 60.0 (>42); GLUCOSE, FASTING 121 MG/DL (74-106); MAGNESIUM LEVEL 2.1 MG/DL (1.8-2.4); POTASSIUM SERUM 4.3 MMOL/L (3.5-5.1); SODIUM LEVEL 135 MMOL/L (136-145)
[2023-12-16 08:43] LABS: MONO # 6.2 10^3/uL (0.0-0.8)
[2023-12-16 08:51] VITALS: BP 120/70
[2023-12-16 11:06] VITALS: BP 126/75; TEMP 98.6; O2SAT 98
[2023-12-16 14:30] VITALS: BP 109/58; TEMP 98.1; O2SAT 97
[2023-12-16 21:00] VITALS: BP 118/66; TEMP 98.8; O2SAT 98
[2023-12-17 05:00] VITALS: BP 126/54; TEMP 98.1; O2SAT 98
[2023-12-17 06:04] LABS: BASO % 0.1 % (0.0-1.0); EOS % 0.1 % (0.0-3.0); HEMATOCRIT 27.8 % (42.0-52.0); HEMOGLOBIN 8.7 g/dl (13.5-17.5); LYMPH # 1.1 10^3/uL (1.5-5.0); LYMPH % 5.2 % (24.0-44.0); MEAN CORPUSCULAR HEMOGLOBIN 27.6 pg (27.0-33.0); MEAN CORPUSCULAR HGB CONC 31.3 g/dl (32.0-36.5); MEAN CORPUSCULAR VOLUME 88.3 fl (80.0-96.0); NEUTROPHILS # 11.5 10^3/uL (1.5-8.5); NEUTROPHILS % 57.2 % (36.0-66.0); PLATELET COUNT, AUTOMATED 215 10^3/uL (150-450); RED BLOOD COUNT 3.15 10^6/uL (4.30-6.10); WHITE BLOOD COUNT 20.2 10^3/uL (4.0-10.0)
[2023-12-17 06:25] LABS: BLOOD UREA NITROGEN 24 MG/DL (9-23); CALCIUM LEVEL 10.2 MG/DL (8.3-10.6); CARBON DIOXIDE LEVEL 28 MMOL/L (20-31); CHLORIDE LEVEL 102 MMOL/L (98-107); CREATININE FOR GFR 0.88 MG/DL (0.70-1.30); GLOMERULAR FILTRATION RATE > 60.0 (>42); GLUCOSE, FASTING 134 MG/DL (74-106); MAGNESIUM LEVEL 2.1 MG/DL (1.8-2.4); POTASSIUM SERUM 4.4 MMOL/L (3.5-5.1); SODIUM LEVEL 135 MMOL/L (136-145)
[2023-12-17 06:29] LABS: MONO # 7.3 10^3/uL (0.0-0.8)
[2023-12-17 06:31] LABS: MONO % 35.9 % (2.0-8.0)
[2023-12-17] MEDS: ACETAMINOPHEN 500 MG TAB PO ONE (08:38)
[2023-12-17 14:00] VITALS: BP 115/55; TEMP 98.1; O2SAT 98
[2023-12-17 20:50] VITALS: BP 115/60; TEMP 100; O2SAT 96
[2023-12-18 05:20] VITALS: BP 130/71; TEMP 98.1; O2SAT 98
[2023-12-18 07:33] LABS: BASO % 0.1 % (0.0-1.0); EOS % 0.2 % (0.0-3.0); HEMOGLOBIN 8.4 g/dl (13.5-17.5); LYMPH # 0.7 10^3/uL (1.5-5.0); LYMPH % 4.5 % (24.0-44.0); MEAN CORPUSCULAR HEMOGLOBIN 28.1 pg (27.0-33.0); MEAN CORPUSCULAR HGB CONC 31.1 g/dl (32.0-36.5); MEAN CORPUSCULAR VOLUME 90.3 fl (80.0-96.0); MONO % 32.6 % (2.0-8.0); NEUTROPHILS # 10.1 10^3/uL (1.5-8.5); NEUTROPHILS % 61.1 % (36.0-66.0); PLATELET COUNT, AUTOMATED 229 10^3/uL (150-450); RED BLOOD COUNT 2.99 10^6/uL (4.30-6.10); WHITE BLOOD COUNT 16.5 10^3/uL (4.0-10.0)
[2023-12-18 07:40] LABS: MONO # 5.4 10^3/uL (0.0-0.8)
[2023-12-18 08:02] LABS: BLOOD UREA NITROGEN 28 MG/DL (9-23); CALCIUM LEVEL 10.2 MG/DL (8.3-10.6); CARBON DIOXIDE LEVEL 30 MMOL/L (20-31); CHLORIDE LEVEL 98 MMOL/L (98-107); CREATININE FOR GFR 0.75 MG/DL (0.70-1.30); GLOMERULAR FILTRATION RATE > 60.0 (>42); GLUCOSE, FASTING 172 MG/DL (74-106); MAGNESIUM LEVEL 2.1 MG/DL (1.8-2.4); POTASSIUM SERUM 4.1 MMOL/L (3.5-5.1); SODIUM LEVEL 134 MMOL/L (136-145)
[2023-12-18 14:46] VITALS: BP 140/73; TEMP 98.6; O2SAT 94
[2023-12-18 15:00] LABS: PROCALCITONIN 0.07 ng/ml
[2023-12-18 15:14] LABS: ERYTHROCYTE SEDIMENTATION RATE 104 mm/hr (0-20)
[2023-12-18 22:00] VITALS: BP 152/59; TEMP 98.1; O2SAT 96
[2023-12-19 05:40] VITALS: BP 117/59; TEMP 97; O2SAT 97
[2023-12-19 06:30] LABS: BASO % 0.1 % (0.0-1.0); EOS % 0.1 % (0.0-3.0); HEMATOCRIT 24.6 % (42.0-52.0); HEMOGLOBIN 7.7 g/dl (13.5-17.5); LYMPH # 2.3 10^3/uL (1.5-5.0); LYMPH % 14.4 % (24.0-44.0); MEAN CORPUSCULAR HEMOGLOBIN 27.3 pg (27.0-33.0); MEAN CORPUSCULAR HGB CONC 31.3 g/dl (32.0-36.5); MEAN CORPUSCULAR VOLUME 87.2 fl (80.0-96.0); NEUTROPHILS # 9.1 10^3/uL (1.5-8.5); NEUTROPHILS % 56.5 % (36.0-66.0); PLATELET COUNT, AUTOMATED 218 10^3/uL (150-450); RED BLOOD COUNT 2.82 10^6/uL (4.30-6.10); WHITE BLOOD COUNT 16.2 10^3/uL (4.0-10.0)
[2023-12-19 06:57] LABS: MONO # 4.5 10^3/uL (0.0-0.8)
[2023-12-19 07:03] LABS: BLOOD UREA NITROGEN 23 MG/DL (9-23); CALCIUM LEVEL 9.4 MG/DL (8.3-10.6); CARBON DIOXIDE LEVEL 28 MMOL/L (20-31); CHLORIDE LEVEL 104 MMOL/L (98-107); CREATININE FOR GFR 0.75 MG/DL (0.70-1.30); GLOMERULAR FILTRATION RATE > 60.0 (>42); GLUCOSE, FASTING 110 MG/DL (74-106); POTASSIUM SERUM 4.5 MMOL/L (3.5-5.1); SODIUM LEVEL 135 MMOL/L (136-145)
[2023-12-19 08:00] VITALS: BP 112/56; TEMP 98.6; O2SAT 95
[2023-12-19 14:00] VITALS: BP 128/62; TEMP 97.6; O2SAT 96
[2023-12-19 20:41] VITALS: BP_SYST 129; BP_SYST 135; BP_DIAS 58; BP_DIAS 65; TEMP 99.3; O2SAT 91
[2023-12-20 05:41] VITALS: BP 134/66; TEMP 97.9; O2SAT 93
[2023-12-20 10:04] LABS: HEMATOCRIT 29.1 % (42.0-52.0); HEMOGLOBIN 9.1 g/dl (13.5-17.5); MEAN CORPUSCULAR HEMOGLOBIN 27.6 pg (27.0-33.0); MEAN CORPUSCULAR HGB CONC 31.3 g/dl (32.0-36.5); MEAN CORPUSCULAR VOLUME 88.2 fl (80.0-96.0); PLATELET COUNT, AUTOMATED 236 10^3/uL (150-450); WHITE BLOOD COUNT 14.4 10^3/uL (4.0-10.0)
[2023-12-20 10:30] LABS: BLOOD UREA NITROGEN 25 MG/DL (9-23); CALCIUM LEVEL 9.7 MG/DL (8.3-10.6); CARBON DIOXIDE LEVEL 29 MMOL/L (20-31); CHLORIDE LEVEL 102 MMOL/L (98-107); CREATININE FOR GFR 0.72 MG/DL (0.70-1.30); GLOMERULAR FILTRATION RATE > 60.0 (>42); GLUCOSE, FASTING 212 MG/DL (74-106); POTASSIUM SERUM 4.4 MMOL/L (3.5-5.1); SODIUM LEVEL 137 MMOL/L (136-145)
[2023-12-20 14:00] VITALS: BP 133/71; TEMP 98.7; O2SAT 96
[2023-12-20] MEDS: SENOKOT S TAB PO PRN (18:18)
[2023-12-20 20:09] VITALS: BP 127/68; TEMP 98.2; O2SAT 97
[2023-12-20] MEDS: BACTRIM 160MG/800MG DS TAB PO SCH (20:44)
[2023-12-21 05:18] VITALS: BP 125/71; TEMP 98.1
[2023-12-21 08:07] VITALS: BP 136/72
[2023-12-21 14:45] VITALS: BP 124/60; TEMP 97.7; O2SAT 97
[2023-12-21 19:17] LABS: HEMATOCRIT 26.7 % (42.0-52.0); HEMOGLOBIN 8.4 g/dl (13.5-17.5); MEAN CORPUSCULAR HEMOGLOBIN 27.4 pg (27.0-33.0); MEAN CORPUSCULAR HGB CONC 31.5 g/dl (32.0-36.5); PLATELET COUNT, AUTOMATED 245 10^3/uL (150-450); RED BLOOD COUNT 3.07 10^6/uL (4.30-6.10); WHITE BLOOD COUNT 13.7 10^3/uL (4.0-10.0)
[2023-12-21 19:43] LABS: BLOOD UREA NITROGEN 23 MG/DL (9-23); CALCIUM LEVEL 9.3 MG/DL (8.3-10.6); CARBON DIOXIDE LEVEL 31 MMOL/L (20-31); CHLORIDE LEVEL 100 MMOL/L (98-107); CREATININE FOR GFR 0.81 MG/DL (0.70-1.30); GLOMERULAR FILTRATION RATE > 60.0 (>42); GLUCOSE, FASTING 188 MG/DL (74-106); POTASSIUM SERUM 4.8 MMOL/L (3.5-5.1); SODIUM LEVEL 136 MMOL/L (136-145)
[2023-12-21 20:00] VITALS: BP 137/60; TEMP 98.4; O2SAT 96
[2023-12-22 06:00] VITALS: BP 126/67; TEMP 98.1; O2SAT 97
[2023-12-22 08:00] VITALS: BP 123/68; TEMP 97.9
[2023-12-22 14:00] VITALS: BP 117/55; TEMP 97.9
[2023-12-22 14:39] VITALS: BP 118/58; TEMP 97.9; O2SAT 97
[2023-12-22 16:31] LABS: HEMATOCRIT 26.2 % (42.0-52.0); HEMOGLOBIN 8.3 g/dl (13.5-17.5); MEAN CORPUSCULAR HEMOGLOBIN 27.5 pg (27.0-33.0); MEAN CORPUSCULAR HGB CONC 31.7 g/dl (32.0-36.5); MEAN CORPUSCULAR VOLUME 86.8 fl (80.0-96.0); PLATELET COUNT, AUTOMATED 248 10^3/uL (150-450); RED BLOOD COUNT 3.02 10^6/uL (4.30-6.10); WHITE BLOOD COUNT 13.8 10^3/uL (4.0-10.0)
[2023-12-22 17:09] LABS: BLOOD UREA NITROGEN 28 MG/DL (9-23); CALCIUM LEVEL 9.4 MG/DL (8.3-10.6); CARBON DIOXIDE LEVEL 30 MMOL/L (20-31); CHLORIDE LEVEL 100 MMOL/L (98-107); GLOMERULAR FILTRATION RATE > 60.0 (>42); GLUCOSE, FASTING 174 MG/DL (74-106); SODIUM LEVEL 134 MMOL/L (136-145)
[2023-12-22 20:30] VITALS: BP 115/57; TEMP 98.1; O2SAT 97
[2023-12-23 05:03] VITALS: BP 123/61; TEMP 98.2; O2SAT 97
[2023-12-23 09:18] LABS: HEMATOCRIT 26.5 % (42.0-52.0); HEMOGLOBIN 8.2 g/dl (13.5-17.5); MEAN CORPUSCULAR HEMOGLOBIN 27.4 pg (27.0-33.0); MEAN CORPUSCULAR HGB CONC 30.9 g/dl (32.0-36.5); MEAN CORPUSCULAR VOLUME 88.6 fl (80.0-96.0); PLATELET COUNT, AUTOMATED 256 10^3/uL (150-450); RED BLOOD COUNT 2.99 10^6/uL (4.30-6.10); WHITE BLOOD COUNT 13.8 10^3/uL (4.0-10.0)
[2023-12-23 09:45] LABS: BLOOD UREA NITROGEN 32 MG/DL (9-23); CARBON DIOXIDE LEVEL 28 MMOL/L (20-31); CHLORIDE LEVEL 101 MMOL/L (98-107); CREATININE FOR GFR 0.87 MG/DL (0.70-1.30); GLOMERULAR FILTRATION RATE > 60.0 (>42); GLUCOSE, FASTING 193 MG/DL (74-106); POTASSIUM SERUM 4.7 MMOL/L (3.5-5.1); SODIUM LEVEL 133 MMOL/L (136-145)
[2023-12-23 14:00] VITALS: BP 138/74; TEMP 98.2; O2SAT 98
[2023-12-23 20:30] VITALS: BP 132/61; TEMP 98.1; O2SAT 98
[2023-12-24 05:30] VITALS: BP 127/62; TEMP 97.7; O2SAT 97
[2023-12-24 07:15] LABS: HEMATOCRIT 27.6 % (42.0-52.0); HEMOGLOBIN 8.4 g/dl (13.5-17.5); MEAN CORPUSCULAR HEMOGLOBIN 27.6 pg (27.0-33.0); MEAN CORPUSCULAR HGB CONC 30.4 g/dl (32.0-36.5); MEAN CORPUSCULAR VOLUME 90.8 fl (80.0-96.0); PLATELET COUNT, AUTOMATED 238 10^3/uL (150-450); RED BLOOD COUNT 3.04 10^6/uL (4.30-6.10); WHITE BLOOD COUNT 12.5 10^3/uL (4.0-10.0)
[2023-12-24 07:41] LABS: BLOOD UREA NITROGEN 28 MG/DL (9-23); CALCIUM LEVEL 10.2 MG/DL (8.3-10.6); CARBON DIOXIDE LEVEL 26 MMOL/L (20-31); CHLORIDE LEVEL 103 MMOL/L (98-107); CREATININE FOR GFR 0.81 MG/DL (0.70-1.30); GLOMERULAR FILTRATION RATE > 60.0 (>42); GLUCOSE, FASTING 102 MG/DL (74-106); MAGNESIUM LEVEL 2.1 MG/DL (1.8-2.4); POTASSIUM SERUM 4.7 MMOL/L (3.5-5.1); SODIUM LEVEL 135 MMOL/L (136-145)
[2023-12-24] MEDS: PANTOPRAZOLE 20 MG TAB PO SCH (13:52)
[2023-12-24 14:00] VITALS: BP 114/55; TEMP 98.6; O2SAT 97
[2023-12-24 19:37] VITALS: BP 125/56; TEMP 98.2; O2SAT 90
[2023-12-25 05:24] VITALS: BP 128/60; TEMP 98.4; O2SAT 96
[2023-12-25 06:39] LABS: HEMATOCRIT 29.5 % (42.0-52.0); MEAN CORPUSCULAR HEMOGLOBIN 27.1 pg (27.0-33.0); MEAN CORPUSCULAR HGB CONC 30.5 g/dl (32.0-36.5); MEAN CORPUSCULAR VOLUME 88.9 fl (80.0-96.0); PLATELET COUNT, AUTOMATED 310 10^3/uL (150-450); RED BLOOD COUNT 3.32 10^6/uL (4.30-6.10); WHITE BLOOD COUNT 15.9 10^3/uL (4.0-10.0)
[2023-12-25 07:10] LABS: ALBUMIN 2.2 G/DL (3.2-5.2); ALKALINE PHOSPHATASE 119 U/L (46-116); ALT/SGPT 48 U/L (7.0-40); AST/SGOT 13 U/L (<34); BILIRUBIN,TOTAL 0.3 MG/DL (0.3-1.2); BLOOD UREA NITROGEN 35 MG/DL (9-23); CALCIUM LEVEL 10.8 MG/DL (8.3-10.6); CARBON DIOXIDE LEVEL 28 MMOL/L (20-31); CHLORIDE LEVEL 101 MMOL/L (98-107); CREATININE FOR GFR 1.04 MG/DL (0.70-1.30); GLOMERULAR FILTRATION RATE > 60.0 (>42); GLUCOSE, FASTING 144 MG/DL (74-106); MAGNESIUM LEVEL 2.2 MG/DL (1.8-2.4); POTASSIUM SERUM 4.8 MMOL/L (3.5-5.1); SODIUM LEVEL 135 MMOL/L (136-145); TOTAL PROTEIN 6.9 G/DL (5.7-8.2)
[2023-12-25] MEDS: LEVEMIR (INSULIN DETEMIR) 1 UNITS/0.01ML SC SCH (09:15)
[2023-12-25] MEDS: metFORMIN (GLUCOPHAGE) 500MG TAB PO SCH (09:17)
[2023-12-25 14:00] VITALS: BP 121/73; TEMP 97.5; O2SAT 95
[2023-12-25 19:43] VITALS: BP 110/48; TEMP 97.5; O2SAT 97
[2023-12-26 05:30] VITALS: BP 126/56; TEMP 98.2; O2SAT 98
[2023-12-26 07:05] LABS: HEMATOCRIT 28.1 % (42.0-52.0); HEMOGLOBIN 8.7 g/dl (13.5-17.5); MEAN CORPUSCULAR HEMOGLOBIN 27.6 pg (27.0-33.0); MEAN CORPUSCULAR VOLUME 89.2 fl (80.0-96.0); PLATELET COUNT, AUTOMATED 279 10^3/uL (150-450); RED BLOOD COUNT 3.15 10^6/uL (4.30-6.10); WHITE BLOOD COUNT 15.3 10^3/uL (4.0-10.0)
[2023-12-26 07:30] VITALS: BP 118/72; TEMP 97.3; O2SAT 95
[2023-12-26 07:45] LABS: BLOOD UREA NITROGEN 34 MG/DL (9-23); CALCIUM LEVEL 11.5 MG/DL (8.3-10.6); CARBON DIOXIDE LEVEL 28 MMOL/L (20-31); CHLORIDE LEVEL 102 MMOL/L (98-107); CREATININE FOR GFR 0.81 MG/DL (0.70-1.30); GLOMERULAR FILTRATION RATE > 60.0 (>42); GLUCOSE, FASTING 73 MG/DL (74-106); POTASSIUM SERUM 4.6 MMOL/L (3.5-5.1); SODIUM LEVEL 134 MMOL/L (136-145)
[2023-12-26 14:00] VITALS: BP 122/58; TEMP 98.1; O2SAT 99
[2023-12-26 20:00] VITALS: BP 138/75; TEMP 98.1; O2SAT 97
[2023-12-26] MEDS: ENOXAPARIN 40MG/0.4ML SYRINGE (J1650 PER 10MG) SC SCH (21:04)
[2023-12-27 05:45] VITALS: BP 114/69; TEMP 98.8; O2SAT 96
[2023-12-27 07:04] LABS: HEMATOCRIT 26.7 % (42.0-52.0); HEMOGLOBIN 8.3 g/dl (13.5-17.5); MEAN CORPUSCULAR HEMOGLOBIN 27.1 pg (27.0-33.0); MEAN CORPUSCULAR HGB CONC 31.1 g/dl (32.0-36.5); MEAN CORPUSCULAR VOLUME 87.3 fl (80.0-96.0); PLATELET COUNT, AUTOMATED 251 10^3/uL (150-450); RED BLOOD COUNT 3.06 10^6/uL (4.30-6.10); WHITE BLOOD COUNT 12.9 10^3/uL (4.0-10.0)
[2023-12-27 07:28] LABS: ALKALINE PHOSPHATASE 96 U/L (46-116); ALT/SGPT 30 U/L (7.0-40); AST/SGOT 12 U/L (<34); BILIRUBIN,TOTAL 0.3 MG/DL (0.3-1.2); BLOOD UREA NITROGEN 40 MG/DL (9-23); CALCIUM LEVEL 11.2 MG/DL (8.3-10.6); CARBON DIOXIDE LEVEL 29 MMOL/L (20-31); CHLORIDE LEVEL 102 MMOL/L (98-107); GLOMERULAR FILTRATION RATE > 60.0 (>42); GLUCOSE, FASTING 121 MG/DL (74-106); POTASSIUM SERUM 4.9 MMOL/L (3.5-5.1); SODIUM LEVEL 134 MMOL/L (136-145); TOTAL PROTEIN 6.4 G/DL (5.7-8.2)
[2023-12-27 21:20] VITALS: BP 119/61; TEMP 97.9; O2SAT 98
[2023-12-28 05:39] VITALS: BP 132/63; TEMP 97.7; O2SAT 96
[2023-12-28 09:17] LABS: HEMATOCRIT 31.3 % (42.0-52.0); HEMOGLOBIN 9.5 g/dl (13.5-17.5); MEAN CORPUSCULAR HEMOGLOBIN 27.1 pg (27.0-33.0); MEAN CORPUSCULAR HGB CONC 30.4 g/dl (32.0-36.5); MEAN CORPUSCULAR VOLUME 89.4 fl (80.0-96.0); PLATELET COUNT, AUTOMATED 265 10^3/uL (150-450); WHITE BLOOD COUNT 13.9 10^3/uL (4.0-10.0)
[2023-12-28 09:29] LABS: ALBUMIN 2.1 G/DL (3.2-5.2); ALKALINE PHOSPHATASE 98 U/L (46-116); ALT/SGPT 28 U/L (7.0-40); AST/SGOT 16 U/L (<34); BILIRUBIN,TOTAL 0.3 MG/DL (0.3-1.2); BLOOD UREA NITROGEN 33 MG/DL (9-23); CALCIUM LEVEL 11.7 MG/DL (8.3-10.6); CARBON DIOXIDE LEVEL 30 MMOL/L (20-31); CHLORIDE LEVEL 104 MMOL/L (98-107); CREATININE FOR GFR 0.73 MG/DL (0.70-1.30); GLOMERULAR FILTRATION RATE > 60.0 (>42); GLUCOSE, FASTING 138 MG/DL (74-106); POTASSIUM SERUM 4.8 MMOL/L (3.5-5.1); SODIUM LEVEL 138 MMOL/L (136-145); TOTAL PROTEIN 6.8 G/DL (5.7-8.2)
[2023-12-28 14:10] VITALS: BP 151/91; TEMP 98.2; O2SAT 95
[2023-12-28] MEDS: NS 1,000 ML IV SCH (15:13)
[2023-12-28 21:07] VITALS: BP 144/68; TEMP 97.9; O2SAT 98
[2023-12-29 06:15] VITALS: BP 133/71; TEMP 97.9; O2SAT 96
[2023-12-29] MEDS ORDERED: CALCITONIN SALMON (MIACALCIN) 400INTERNATIONAL UNITS/2ML VIAL SQ SCH (08:00)
[2023-12-29 08:10] LABS: HEMATOCRIT 28.7 % (42.0-52.0); HEMOGLOBIN 8.8 g/dl (13.5-17.5); MEAN CORPUSCULAR HEMOGLOBIN 27.7 pg (27.0-33.0); MEAN CORPUSCULAR HGB CONC 30.7 g/dl (32.0-36.5); MEAN CORPUSCULAR VOLUME 90.3 fl (80.0-96.0); PLATELET COUNT, AUTOMATED 239 10^3/uL (150-450); RED BLOOD COUNT 3.18 10^6/uL (4.30-6.10); WHITE BLOOD COUNT 13.4 10^3/uL (4.0-10.0)
[2023-12-29 08:31] LABS: ALBUMIN 2.3 G/DL (3.2-5.2); ALKALINE PHOSPHATASE 96 U/L (46-116); ALT/SGPT 21 U/L (7.0-40); AST/SGOT 15 U/L (<34); BILIRUBIN,TOTAL 0.3 MG/DL (0.3-1.2); BLOOD UREA NITROGEN 26 MG/DL (9-23); CALCIUM LEVEL 11.7 MG/DL (8.3-10.6); CARBON DIOXIDE LEVEL 30 MMOL/L (20-31); CHLORIDE LEVEL 103 MMOL/L (98-107); CREATININE FOR GFR 0.67 MG/DL (0.70-1.30); GLOMERULAR FILTRATION RATE > 60.0 (>42); GLUCOSE, FASTING 122 MG/DL (74-106); POTASSIUM SERUM 4.5 MMOL/L (3.5-5.1); PTH INTACT 12.9 PG/ML (18.5-88.0); SODIUM LEVEL 135 MMOL/L (136-145); TOTAL PROTEIN 6.6 G/DL (5.7-8.2)
[2023-12-29] MEDS: CALCITONIN SALMON (MIACALCIN) 400INTERNATIONAL UNITS/2ML VIAL SQ SCH (10:22)
[2023-12-29 11:35] VITALS: BP 142/85; TEMP 97.9; O2SAT 95
[2023-12-29 14:58] VITALS: BP 115/56; TEMP 97.9; O2SAT 96
[2023-12-29 20:25] VITALS: BP 125/70; TEMP 98.8; O2SAT 96
[2023-12-30] MEDS: MAALOX 30 ML SUSP *UDC PO PRN (02:06)
[2023-12-30 04:40] VITALS: BP 117/59; TEMP 98.8; O2SAT 97
[2023-12-30 07:00] LABS: MEAN CORPUSCULAR HEMOGLOBIN 27.8 pg (27.0-33.0); MEAN CORPUSCULAR HGB CONC 30.8 g/dl (32.0-36.5); MEAN CORPUSCULAR VOLUME 90.3 fl (80.0-96.0); PLATELET COUNT, AUTOMATED 211 10^3/uL (150-450); RED BLOOD COUNT 2.88 10^6/uL (4.30-6.10); WHITE BLOOD COUNT 13.2 10^3/uL (4.0-10.0)
[2023-12-30 07:26] LABS: ALKALINE PHOSPHATASE 86 U/L (46-116); ALT/SGPT 20 U/L (7.0-40); AST/SGOT 11 U/L (<34); BILIRUBIN,TOTAL 0.3 MG/DL (0.3-1.2); BLOOD UREA NITROGEN 21 MG/DL (9-23); CARBON DIOXIDE LEVEL 28 MMOL/L (20-31); CHLORIDE LEVEL 103 MMOL/L (98-107); CREATININE FOR GFR 0.54 MG/DL (0.70-1.30); GLOMERULAR FILTRATION RATE > 60.0 (>42); GLUCOSE, FASTING 125 MG/DL (74-106); POTASSIUM SERUM 4.3 MMOL/L (3.5-5.1); SODIUM LEVEL 137 MMOL/L (136-145); TOTAL PROTEIN 6.2 G/DL (5.7-8.2)
[2023-12-30] MEDS: MIRALAX *UNIT DOSE* 17GM PACKET PO PRN (08:27)
[2023-12-30] MEDS: DOCUSATE SODIUM 100MG CAPSULE PO SCH (08:35)
[2023-12-30 14:00] VITALS: BP 133/76; TEMP 98.1; O2SAT 98
[2023-12-30 20:00] VITALS: BP 131/61; TEMP 97.9; O2SAT 94
[2023-12-30] MEDS: SENNA 8.6 MG TAB (SENOKOT) PO SCH (21:17)
[2023-12-31 06:00] VITALS: BP 137/71; TEMP 98.2; O2SAT 96
[2023-12-31 06:01] LABS: HEMATOCRIT 26.4 % (42.0-52.0); HEMOGLOBIN 8.2 g/dl (13.5-17.5); MEAN CORPUSCULAR HEMOGLOBIN 27.8 pg (27.0-33.0); MEAN CORPUSCULAR HGB CONC 31.1 g/dl (32.0-36.5); MEAN CORPUSCULAR VOLUME 89.5 fl (80.0-96.0); PLATELET COUNT, AUTOMATED 230 10^3/uL (150-450); RED BLOOD COUNT 2.95 10^6/uL (4.30-6.10); WHITE BLOOD COUNT 16.6 10^3/uL (4.0-10.0)
[2023-12-31 06:33] LABS: ALBUMIN 2.1 G/DL (3.2-5.2); ALKALINE PHOSPHATASE 82 U/L (46-116); ALT/SGPT 16 U/L (7.0-40); AST/SGOT 10 U/L (<34); BILIRUBIN,TOTAL 0.2 MG/DL (0.3-1.2); BLOOD UREA NITROGEN 16 MG/DL (9-23); CALCIUM LEVEL 9.6 MG/DL (8.3-10.6); CARBON DIOXIDE LEVEL 25 MMOL/L (20-31); CHLORIDE LEVEL 105 MMOL/L (98-107); GLOMERULAR FILTRATION RATE > 60.0 (>42); GLUCOSE, FASTING 117 MG/DL (74-106); POTASSIUM SERUM 4.3 MMOL/L (3.5-5.1); SODIUM LEVEL 137 MMOL/L (136-145); TOTAL PROTEIN 6.3 G/DL (5.7-8.2)
[2023-12-31 08:29] VITALS: BP 138/68
[2023-12-31] MEDS: MEROPENEM INJ 1 GM in IV 1 EA IV SCH (10:24)
[2023-12-31 14:00] VITALS: TEMP 98.3; O2SAT 98
[2023-12-31 21:03] VITALS: BP 126/58; TEMP 98.2; O2SAT 96
[2024-01-01 05:11] VITALS: BP 141/85; TEMP 98.6; O2SAT 96
[2024-01-01 06:05] LABS: HEMATOCRIT 26.6 % (42.0-52.0); HEMOGLOBIN 8.4 g/dl (13.5-17.5); MEAN CORPUSCULAR HEMOGLOBIN 27.9 pg (27.0-33.0); MEAN CORPUSCULAR HGB CONC 31.6 g/dl (32.0-36.5); MEAN CORPUSCULAR VOLUME 88.4 fl (80.0-96.0); PLATELET COUNT, AUTOMATED 237 10^3/uL (150-450); RED BLOOD COUNT 3.01 10^6/uL (4.30-6.10); WHITE BLOOD COUNT 16.1 10^3/uL (4.0-10.0)
[2024-01-01 06:35] LABS: ALBUMIN 2.1 G/DL (3.2-5.2); ALKALINE PHOSPHATASE 81 U/L (46-116); ALT/SGPT 12 U/L (7.0-40); AST/SGOT 10 U/L (<34); BILIRUBIN,TOTAL 0.4 MG/DL (0.3-1.2); BLOOD UREA NITROGEN 16 MG/DL (9-23); CALCIUM LEVEL 9.6 MG/DL (8.3-10.6); CARBON DIOXIDE LEVEL 27 MMOL/L (20-31); CHLORIDE LEVEL 103 MMOL/L (98-107); CREATININE FOR GFR 0.55 MG/DL (0.70-1.30); GLOMERULAR FILTRATION RATE > 60.0 (>42); GLUCOSE, FASTING 101 MG/DL (74-106); POTASSIUM SERUM 3.9 MMOL/L (3.5-5.1); SODIUM LEVEL 136 MMOL/L (136-145); TOTAL PROTEIN 6.3 G/DL (5.7-8.2)
[2024-01-01 14:00] VITALS: BP 136/65; TEMP 97.7; O2SAT 97
[2024-01-01 21:00] VITALS: BP 133/66; TEMP 98.1; O2SAT 98
[2024-01-02 05:41] VITALS: BP 132/68; TEMP 98.2; O2SAT 97
[2024-01-02 06:33] LABS: HEMATOCRIT 25.9 % (42.0-52.0); HEMOGLOBIN 8.1 g/dl (13.5-17.5); MEAN CORPUSCULAR HEMOGLOBIN 27.6 pg (27.0-33.0); MEAN CORPUSCULAR HGB CONC 31.3 g/dl (32.0-36.5); MEAN CORPUSCULAR VOLUME 88.1 fl (80.0-96.0); PLATELET COUNT, AUTOMATED 206 10^3/uL (150-450); RED BLOOD COUNT 2.94 10^6/uL (4.30-6.10); WHITE BLOOD COUNT 13.4 10^3/uL (4.0-10.0)
[2024-01-02 07:08] LABS: ALBUMIN 2.1 G/DL (3.2-5.2); ALKALINE PHOSPHATASE 73 U/L (46-116); ALT/SGPT 10 U/L (7.0-40); AST/SGOT 10 U/L (<34); BILIRUBIN,TOTAL 0.4 MG/DL (0.3-1.2); BLOOD UREA NITROGEN 18 MG/DL (9-23); CALCIUM LEVEL 9.8 MG/DL (8.3-10.6); CARBON DIOXIDE LEVEL 28 MMOL/L (20-31); CHLORIDE LEVEL 102 MMOL/L (98-107); CREATININE FOR GFR 0.51 MG/DL (0.70-1.30); GLOMERULAR FILTRATION RATE > 60.0 (>42); GLUCOSE, FASTING 133 MG/DL (74-106); POTASSIUM SERUM 3.8 MMOL/L (3.5-5.1); SODIUM LEVEL 136 MMOL/L (136-145)
[2024-01-02 14:00] VITALS: BP 125/63; TEMP 97.7; O2SAT 96
[2024-01-02] MEDS: dexAMETHasone 20MG/5ML VIAL IV ONE (18:20)
[2024-01-02 19:54] VITALS: BP 124/59; TEMP 98.2; O2SAT 92
[2024-01-03 05:30] VITALS: BP 116/65; TEMP 97.7; O2SAT 94
[2024-01-03 06:10] LABS: HEMATOCRIT 26.8 % (42.0-52.0); HEMOGLOBIN 8.7 g/dl (13.5-17.5); MEAN CORPUSCULAR HEMOGLOBIN 27.9 pg (27.0-33.0); MEAN CORPUSCULAR HGB CONC 32.5 g/dl (32.0-36.5); MEAN CORPUSCULAR VOLUME 85.9 fl (80.0-96.0); PLATELET COUNT, AUTOMATED 228 10^3/uL (150-450); RED BLOOD COUNT 3.12 10^6/uL (4.30-6.10); WHITE BLOOD COUNT 7.9 10^3/uL (4.0-10.0)
[2024-01-03 06:35] LABS: ALBUMIN 2.1 G/DL (3.2-5.2); ALKALINE PHOSPHATASE 77 U/L (46-116); ALT/SGPT 11 U/L (7.0-40); AST/SGOT 9 U/L (<34); BILIRUBIN,TOTAL 0.3 MG/DL (0.3-1.2); BLOOD UREA NITROGEN 20 MG/DL (9-23); CALCIUM LEVEL 10.4 MG/DL (8.3-10.6); CARBON DIOXIDE LEVEL 28 MMOL/L (20-31); CHLORIDE LEVEL 102 MMOL/L (98-107); CREATININE FOR GFR 0.48 MG/DL (0.70-1.30); GLOMERULAR FILTRATION RATE > 60.0 (>42); GLUCOSE, FASTING 179 MG/DL (74-106); POTASSIUM SERUM 4.1 MMOL/L (3.5-5.1); SODIUM LEVEL 136 MMOL/L (136-145); TOTAL PROTEIN 6.2 G/DL (5.7-8.2)
[2024-01-03] MEDS: predniSONE 20 MG TAB PO SCH (11:27)
[2024-01-03 14:00] VITALS: BP 141/83; TEMP 97.7; O2SAT 96
[2024-01-03 20:00] VITALS: BP 130/63; TEMP 98.2; O2SAT 96
[2024-01-04 04:40] VITALS: BP 142/68; TEMP 97.9; O2SAT 97
[2024-01-04 05:48] LABS: HEMATOCRIT 25.6 % (42.0-52.0); HEMOGLOBIN 8.1 g/dl (13.5-17.5); MEAN CORPUSCULAR HEMOGLOBIN 27.4 pg (27.0-33.0); MEAN CORPUSCULAR HGB CONC 31.6 g/dl (32.0-36.5); MEAN CORPUSCULAR VOLUME 86.5 fl (80.0-96.0); PLATELET COUNT, AUTOMATED 228 10^3/uL (150-450); RED BLOOD COUNT 2.96 10^6/uL (4.30-6.10)
[2024-01-04 06:19] LABS: ALBUMIN 2.1 G/DL (3.2-5.2); ALKALINE PHOSPHATASE 68 U/L (46-116); ALT/SGPT 14 U/L (7.0-40); AST/SGOT 12 U/L (<34); BILIRUBIN,TOTAL 0.2 MG/DL (0.3-1.2); BLOOD UREA NITROGEN 18 MG/DL (9-23); CALCIUM LEVEL 10.9 MG/DL (8.3-10.6); CARBON DIOXIDE LEVEL 29 MMOL/L (20-31); CHLORIDE LEVEL 102 MMOL/L (98-107); CREATININE FOR GFR 0.51 MG/DL (0.70-1.30); GLOMERULAR FILTRATION RATE > 60.0 (>42); GLUCOSE, FASTING 169 MG/DL (74-106); POTASSIUM SERUM 3.6 MMOL/L (3.5-5.1); SODIUM LEVEL 137 MMOL/L (136-145)
[2024-01-04 08:35] VITALS: BP 143/69
[2024-01-04 14:00] VITALS: BP 144/79; TEMP 97.7; O2SAT 96
[2024-01-04] MEDS ORDERED: ONDANSETRON 4MG 2ML VIAL IV PRN (17:00)
[2024-01-04] MEDS ORDERED: ACETAMINOPHEN TAB 650MG DOSE (2X325MG) PO PRN (17:00)
[2024-01-05] MEDS: MORPHINE 10MG/0.5ML ORAL CONCENTRATE SOLUTION U/D SL PRN (09:43)
[2024-01-07] MEDS: LORazepam 2 MG/ML 1ML VIAL IV PRN (00:14)
[2024-01-07 03:06] LABS: PTH RELATED PEPTIDE < 2.0 pmol/L (.); VITAMIN D 1,25 DIHYDROXY 19.2 pg/mL (24.8-81.5)
[2024-01-07] MEDS: HYOSCYAMINE SULFATE 0.125 MG SUBL TABLET PO PRN (09:52)
[2024-01-07] MEDS: SCOPOLAMINE 1MG TRANSDERMAL PATCH TOP PRN (09:52)
[2024-01-09] MEDS: ATROPINE SULFATE 1% OPHTH SOLN 2ML BTL SL PRN (06:38)
[2024-01-09] MEDS: MORPHINE 10MG/0.5ML ORAL CONCENTRATE SOLUTION U/D SL PRN (06:38)
[2024-01-09] MEDS: LORazepam 2 MG TAB PO PRN (12:59)
== END 2024-01-10 08:00 | disposition expired | DRG 542 ==
LOC: EDBD 11:46 → M ED 11:46 → M ED INP 12-12 05:16 → M MS5PR 12-12 14:55 → OBSVTOIN 12-12 15:54 → M MSPAV 12-29 11:14 → M MS5PR 01-05 11:32
PROVIDERS: ADMIT Internal Medicine; ATTEND Student in an Organized Health Care Education/Training Program
PROC: 30233N1 Transfusion of Nonautologous Red Blood Cells into Peripheral Vein, Percutaneous Approach (ICD-10-PCS; principal; 2023-12-13)
DX: C79.51 Secondary malignant neoplasm of bone (principal); A41.9 Sepsis, unspecified organism; R65.21 Severe sepsis with septic shock; G93.41 Metabolic encephalopathy; C79.89 Secondary malignant neoplasm of other specified sites; K52.1 Toxic gastroenteritis and colitis; I13.0 Hypertensive heart and chronic kidney disease with heart failure and stage 1 through stage 4 chronic kidney disease, or unspecified chronic kidney disease; L03.211 Cellulitis of face; G89.3 Neoplasm related pain (acute) (chronic); E11.40 Type 2 diabetes mellitus with diabetic neuropathy, unspecified; J44.9 Chronic obstructive pulmonary disease, unspecified; I50.9 Heart failure, unspecified; C44.02 Squamous cell carcinoma of skin of lip; J34.1 Cyst and mucocele of nose and nasal sinus; D50.0 Iron deficiency anemia secondary to blood loss (chronic); E11.610 Type 2 diabetes mellitus with diabetic neuropathic arthropathy; G51.0 Bell's palsy; E83.42 Hypomagnesemia; J32.0 Chronic maxillary sinusitis; Z51.5 Encounter for palliative care; E83.52 Hypercalcemia; Z66 Do not resuscitate; D63.8 Anemia in other chronic diseases classified elsewhere; K02.9 Dental caries, unspecified; K59.00 Constipation, unspecified; E78.5 Hyperlipidemia, unspecified; L89.222 Pressure ulcer of left hip, stage 2; I11.0 Hypertensive heart disease with heart failure; E87.6 Hypokalemia; R53.1 Weakness; I25.10 Atherosclerotic heart disease of native coronary artery without angina pectoris; E11.649 Type 2 diabetes mellitus with hypoglycemia without coma; R13.10 Dysphagia, unspecified; Z95.1 Presence of aortocoronary bypass graft; T45.1X5A Adverse effect of antineoplastic and immunosuppressive drugs, initial encounter; I25.2 Old myocardial infarction; N40.0 Benign prostatic hyperplasia without lower urinary tract symptoms; Z90.49 Acquired absence of other specified parts of digestive tract; Z79.84 Long term (current) use of oral hypoglycemic drugs; Z79.899 Other long term (current) drug therapy; Z86.73 Personal history of transient ischemic attack (TIA), and cerebral infarction without residual deficits; Z89.511 Acquired absence of right leg below knee; Z89.422 Acquired absence of other left toe(s)

== ENCOUNTER 2023-12-13 10:58 | Outpatient (RCR) | payer MEDICARE, MEDICAID ==
[~2023-12-13 10:58] MED LIST changes: +AMLO1TAB25 PO; +FENT12DI12 TD
== END 2024-01-09 ==
LOC: M ONCR 10:58
PROVIDERS: ATTEND General Practice
DX: Z51.0 Encounter for antineoplastic radiation therapy (principal); C00.0 Malignant neoplasm of external upper lip

== ENCOUNTER 2024-01-05 13:20 | Outpatient (RCR) | payer MEDICARE, MEDICAID | END 2024-01-09 | LOC: M ONCR 13:20 | PROVIDERS: ATTEND General Practice | DX: Z51.0 Encounter for antineoplastic radiation therapy (principal); C00.0 Malignant neoplasm of external upper lip ==